=== PATIENT | female | born 1960 | race Caucasian/White ===

== ENCOUNTER → 2017-03-17 15:04 | Outpatient (CLI) | payer MEDICARE, SELFPAY ==
[2017-03-19 18:29] LABS: CA 19-9 10 U/mL (0-35)
== END ==
PROVIDERS: PCP Family Medicine; Visit Provider Nurse Practitioner Acute Care
DX: K86.1 Other chronic pancreatitis (principal)
CPT/HCPCS: 36415; 86316

== ENCOUNTER 2017-03-27 13:24 | Day surgery (SDC) | payer MEDICARE, SELFPAY ==
[2017-03-22 17:21] VITALS: BMI 15.0
[2017-03-27] VITALS (8 sets, daily range): BP systolic 97–160; BP diastolic 61–101; PULSE 90–109; RESP 18–24; TEMP 36.4–36.6; O2SAT 94–98
--- NOTE | 2017-03-27 | FL_ITS ---
FL ERCP CLINICAL INDICATION: ITS.REASON: ABD PAIN ORDERING PHYSICIAN: Suleman Mendez MD PATIENT AGE: 56 years PROCEDURE was performed by Dr. Mendez. Please see his report for fluoroscopic findings. Fluoroscopy time was 26 seconds. According to technologist notes, a balloon was used for dilatation and sphincterotomy performed. COMPARISON: None FINDINGS: Selective images are submitted showing dilated common bile duct. There does appear to be some intravasation of contrast into the liver versus small biliary radicles with some pulling of contrast in the left hepatic lobe. There may also be some extravasation of contrast. It is difficult to determine based on the selected images submitted. There is diffuse eating of a small pancreatic duct consistent with chronic pancreatitis. IMPRESSION: Dilated common bile duct.. There is some intravasation of contrast within the liver and suspected extravasation of contrast in the right upper quadrant. Please correlate with fluoroscopic findings. Chronic pancreatitis
[2017-03-27 14:54] LABS: POC Glucose,Bedside 129 mg/dL
--- NOTE | 2017-03-27 15:56 | HMH.PROC ---
[facility] Procedure Note Procedure Note:: ERCP procedure Report: Endoscopic retrograde cholangiopancreatography with biliary sphincterotomy and balloon extraction Endoscopist: Suleman Mendez II, MD Referring Physician: Jean Claude Cotton MD Date of Procedure: March 27, 2017 Equipment: Olympus 180 side viewing endoscope/duodenal scope Sedation: MAC sedation Indication: Mrs. Wilhelm is a 56-year-old female with chronic pancreatitis. The patient does have diffuse abdominal pain. Her CT scan of the abdomen and pelvis from October 2016 showed some changes of cirrhosis of the liver. There were extensive calcifications within the pancreas strongly indicative of chronic pancreatitis. The patient does still continue smoking tobacco but less so than previously. The patient reported use of alcohol. There is no known family history of pancreatitis. The patient does have a history of peptic ulcer disease. Her abdominal pain had initially improved with pancreatic digestive supplementation. The patient does have an elevated alkaline phosphatase. Her CA-19-9 level was normal at 10. There was no biliary ductal dilation on her CAT scan. Procedure: Prior to the procedure, a history and physical exam was performed, and patient's medications and allergies were reviewed. The risks, benefits and alternatives of the sedation and procedure were discussed with the patient. All questions were answered and informed consent was obtained. The patient was brought to the fluoroscopic radiology room. Patient identification and proposed procedure were verified by the physician and the nurse. The patient was placed in a swimmer's position between left lateral decubitus and prone position and the scope was passed under direct vision. Throughout the procedure, the patient's blood pressure, pulse, and oxygen saturations were monitored continuously. The ERCP was accomplished without difficulty. The patient tolerated the procedure well. Findings: The endoscope was passed directly into the upper esophagus and advanced to the second portion of the duodenum. The esophagus and stomach were grossly normal except for some mild gastritis. There was some deformity of the duodenal bulb suggestive of prior duodenal ulcer disease. The ampulla was well visualized. The common bile duct was selectively cannulated initially. The cholangiogram did show a possible filling defect within the common bile duct and common hepatic duct. It was free filling of the cystic duct and gallbladder with no evidence of chronic cholecystitis. There was some minor narrowing at the ampulla possibly related chronic pancreatitis and a biliary sphincterotomy was performed. A 9-12 mm balloon was pulled through the biliary system from the hilum with the passage of reyes bile and a minor amount of debris. Next, the pancreatic duct was cannulated the pancreatogram showed diffuse stricturing with deformity of the pancreatic duct and concretion/calcifications which would not allow easy guidewire access or stent placement. The findings were consistent with moderate chronic pancreatitis. Impression: 1. Moderate chronic pancreatitis 2. Early biliary stricture from chronic pancreatitis status post biliary sphincterotomy and balloon sweep/dilatation 3. Mild duodenal bulb deformity from prior peptic ulcer/duodenal ulcer disease Plan: I would like to complement ERCP with endoscopic ultrasound to assess degree of chronic pancreatitis and to ensure that there are not any areas of dilation not easily seen on ERCP. I would also consider doing MRCP. Given the fact that the patient does have moderate hepatic fibrosis and possible cirrhosis, I will obtain fibrotic markers and serologies to exclude autoimmune pancreatic/biliary disease, alpha-1 antitrypsin deficiency or other inherited forms of chronic pancreatitis. I would certainly recommend smoking cessation which has a great impact on worsening of chronic pancreatitis an
--- NOTE | 2017-03-27 16:08 | P.PN_ITS ---
[facility] Anesthesia Checklist - Patient Identification Patient Identification: Arm Band - Structural Data Admitted From: Home Planned Operative Procedure/s: ercp Consent for Planned Operative Procedure(s) Verified: Yes Verified Documents: Surgical Consent, History and Physical - NPO Status Verified Time NPO: 00:00 - Additional verifications Anesthesia Reactions: No - Airway Assessment C-Spine Mobility Assessed: Yes (mp1) TMJ Mobility Assessed: Yes Dentition: Good Dentition - Neurological Assessment Level of Consciousness: Awake, Alert - Anesthesia Plan Anesthesia Risk discussed: Yes Anesthesia Plan: Verified ASA Class: III Anesthesia Type: MAC [facility] Anesthesia HX I have reviewed the patient's past medical history: Yes Medical History: Reports:: Arrhythmia (TACHYCARDIA), Diabetes Mellitus Type 2 ( IDDM), Hypertension, Lung Disease (EMPHYSEMA), Myocardial Infarction, Palpitations, Seizures Denies:: Diabetes Mellitus Type 1, Internal Pacemaker Other Surgeries: Yes: Hernia Repair, Hysterectomy-Total. No: Pacemaker Comment: btl, back sx, breast aug
--- NOTE | 2017-03-27 16:11 | P.PCN_ITS ---
[facility] Procedure Note Procedure Note:: ERCP procedure Report: Endoscopic retrograde cholangiopancreatography with biliary sphincterotomy and balloon extraction Endoscopist: Suleman Mendez II, MD Referring Physician: Jean Claude Cotton MD Date of Procedure: March 27, 2017 Equipment: Olympus 180 side viewing endoscope/duodenal scope Sedation: MAC sedation Indication: Mrs. Wilhelm is a 56-year-old female with chronic pancreatitis. The patient does have diffuse abdominal pain. Her CT scan of the abdomen and pelvis from October 2016 showed some changes of cirrhosis of the liver. There were extensive calcifications within the pancreas strongly indicative of chronic pancreatitis. The patient does still continue smoking tobacco but less so than previously. The patient reported use of alcohol. There is no known family history of pancreatitis. The patient does have a history of peptic ulcer disease. Her abdominal pain had initially improved with pancreatic digestive supplementation. The patient does have an elevated alkaline phosphatase. Her CA-19-9 level was normal at 10. There was no biliary ductal dilation on her CAT scan. Procedure: Prior to the procedure, a history and physical exam was performed, and patient' s medications and allergies were reviewed. The risks, benefits and alternatives of the sedation and procedure were discussed with the patient. All questions were answered and informed consent was obtained. The patient was brought to the fluoroscopic radiology room. Patient identification and proposed procedure were verified by the physician and the nurse. The patient was placed in a swimmer's position between left lateral decubitus and prone position and the scope was passed under direct vision. Throughout the procedure , the patient's blood pressure, pulse, and oxygen saturations were monitored continuously. The ERCP was accomplished without difficulty. The patient tolerated the procedure well. Findings: The endoscope was passed directly into the upper esophagus and advanced to the second portion of the duodenum. The esophagus and stomach were grossly normal except for some mild gastritis. There was some deformity of the duodenal bulb suggestive of prior duodenal ulcer disease. The ampulla was well visualized. The common bile duct was selectively cannulated initially. The cholangiogram did show a possible filling defect within the common bile duct and common hepatic duct. It was free filling of the cystic duct and gallbladder with no evidence of chronic cholecystitis. There was some minor narrowing at the ampulla possibly related chronic pancreatitis and a biliary sphincterotomy was performed. A 9-12 mm balloon was pulled through the biliary system from the hilum with the passage of reyes bile and a minor amount of debris. Next, the pancreatic duct was cannulated the pancreatogram showed diffuse stricturing with deformity of the pancreatic duct and concretion/ calcifications which would not allow easy guidewire access or stent placement. The findings were consistent with moderate chronic pancreatitis. Impression: 1. Moderate chronic pancreatitis 2. Early biliary stricture from chronic pancreatitis status post biliary sphincterotomy and balloon sweep/dilatation 3. Mild duodenal bulb deformity from prior peptic ulcer/duodenal ulcer disease Plan: I would like to complement ERCP with endoscopic ultrasound to assess degree of chronic pancreatitis and to ensure that there are not any areas of dilation not easily seen on ERCP. I would also consider doing MRCP. Given the fact that the patient does have moderate hepatic fibrosis and possible cirrhosis, I will obtain fibrotic markers a
[2017-03-29 08:27] LABS: Alpha-1-Antitrypsin 144 mg/dL (90-200); Hep A Ab, IgM Negative (Negative); Hep B Core Ab, Total Negative (Negative); Hepatitis B Core Antibody IgM Negative (Negative); Hepatitis B Surface Antigen Negative (Negative); Immunoglobulin A, Qn 272 mg/dL (87-352); Immunoglobulin M, Qn 208 mg/dL (26-217)
[2017-03-29 12:16] LABS: Anti-Jo-1 <0.2 AI (0.0-0.9); Anti-Smith Antibody <0.2 AI (0.0-0.9); Antichromatin Antibodies <0.2 AI (0.0-0.9); Antiscleroderma-70 Antibodies <0.2 AI (0.0-0.9); RNP Antibodies <0.2 AI (0.0-0.9); Sjogren's Anti-SS-A <0.2 AI (0.0-0.9); Sjogren's Anti-SS-B 1.4 AI (0.0-0.9)
[2017-03-30 06:15] LABS: IgG, Subclass 1 415 mg/dL (248-810); IgG, Subclass 2 267 mg/dL (130-555); IgG, Subclass 3 59 mg/dL (15-102); Immunoglobulin G, Qn 821 mg/dL (700-1600)
[2017-03-30 12:32] LABS: Actin (Smooth Muscle) Antibody 5 Units (0-19); Angiotensin Converting Enzyme 9 U/L (14-82); Anti-Centromere B Antibodies <0.2 AI (0.0-0.9); Anti-DNA (DS) Ab Qn <1 IU/mL (0-9); Hep A Ab, Total Negative (Negative); Hep B Surface Ab, Qual Non Reactive (.); Hepatitis C Antibody 0.1 s/co ratio (0.0-0.9)
[2017-03-30 12:34] LABS: IgG, Subclass 4 49 mg/dL (2-96)
== END 2017-03-27 17:31 | disposition home or self-care (01) ==
LOC: OUTP 13:30
PROVIDERS: PCP Family Medicine; Visit Provider Internal Medicine Gastroenterology
DX: K86.1 Other chronic pancreatitis (principal); K31.89 Other diseases of stomach and duodenum; K80.50 Calculus of bile duct without cholangitis or cholecystitis without obstruction
CPT/HCPCS: 43277; 74330; 80074; 82104; 82164; 82784; 82787; 82962; 86038; 86255; 86704; 86706; 86708; Q9967

== ENCOUNTER → 2017-03-31 14:42 | Outpatient (CLI) | payer MEDICARE, SELFPAY ==
[2017-04-05 06:20] LABS: ALT (SGPT) P5P 23 IU/L (0-40); Alpha 2-Macroglobulins, Qn 328 mg/dL (110-276); Apolipoprotein A-1 168 mg/dL (116-209); Fibrosis Score 0.84 (0.00-0.21); GGT 819 IU/L (0-60); Haptoglobin 176 mg/dL (34-200); Necroinflammat Activity Grade A0-A1 (.)
== END ==
PROVIDERS: PCP Family Medicine; Visit Provider Internal Medicine Gastroenterology
DX: K74.60 Unspecified cirrhosis of liver (principal)
CPT/HCPCS: 36415

== ENCOUNTER → 2017-11-01 13:54 | Outpatient (CLI) | payer MEDICARE, SELFPAY ==
--- NOTE | 2017-11-01 13:57 | XR_ITS ---
XR chest 2V HISTORY: ITS.REASON: BRONCHITIS, smoker ORDERING PHYSICIAN: YAN Garvey PATIENT AGE: 57 years COMPARISON: 10/31/2016 FINDINGS: Unremarkable cardiovascular structures. Hyperinflation with attenuation of peripheral pulmonary vessels consistent with obstructive chronic bronchitis. There is either infiltration of the hemidiaphragms. There is attenuation from overlying breast implants. No lobar consolidation or collapse. No acute bony anomalies. Mild degenerative changes thoracic spine. IMPRESSION: COPD, no change with no acute finding
== END ==
PROVIDERS: PCP Family Medicine; Visit Provider Physician Assistant
DX: J40 Bronchitis, not specified as acute or chronic (principal)
CPT/HCPCS: 71046

== ENCOUNTER → 2017-11-27 15:08 | Outpatient (CLI) | payer MEDICARE, SELFPAY ==
--- NOTE | 2017-11-27 15:10 | CT_ITS ---
CT lung screening EXAM: CT LUNG LOW DOSE WO CONTRAST HISTORY: 94 pack-year smoking history, currently smoking, asymptomatic for lung cancer ITS.REASON: CURRENT TOBACCO USE ORDERING PHYSICIAN: Tamela Wilde MD PATIENT AGE: 57 years COMPARISON: 10/18/2009 TECHNIQUE: The exam was performed on a GE Light Speed [address] scanner using 2.90 mGy CTDI. A low dose helical CT CHEST was performed on a multi-detector scanner. All CT scans at the facility use one or more dose reduction, viz: automated exposure control, ma/kV adjustment per patient size (including targeted exams where dose is matched to indication, i.e. head), or iterative reconstruction technique. The LDCT was performed in a facility that meets the criteria for the screening program. Data regarding this exam was submitted to ACR which is an approved registry. The order for this exam indicates that it came as a result of a lung cancer screening counseling shard decision-making visit that included all the elements required of such a visit including smoking cessation. The radiologist interpreting this exam meets the CMS criteria for the LDCT lung cancer screening program. The exam is reported using the Lung-RADS classification scale and reported to the ACR registry. NOTE: This study was performed for the specific purposes of lung cancer screening and is not an alternative to diagnostic chest CT. RADIATION DOSE: CTDI vol(CT dose Index-volume) = 2.90mG DLP (Dose Length Product) = 113.85 mGcm FINDINGS: There are severe centrilobular emphysematous changes with scattered areas of pulmonary fibrosis/scarring. There is Bronchial thickening. There is evidence of old granulomatous disease. Calcified granulomas are present within the right lower lobe, lingula and left lower lobe with calcified lymph nodes present in the julienne and mediastinum. There are no central obstructing lesions. Incidental note made of coronary artery calcification Upper abdominal images show a isodensity in the right hepatic lobe at the dome of the liver at 5 mm nonspecific. There are diffuse pancreatic calcifications consistent with chronic pancreatitis IMPRESSION: 1. Lung RADS Category: 2, benign 2. Other findings: Centrilobular emphysema with scattered areas of fibrosis. Old granulomatous disease Coronary artery calcification. Chronic pancreatitis RECOMMENDATIONS: 12 month LDCT follow-up
--- NOTE | 2017-11-27 15:11 | MM_ITS ---
MM Dig SC mamm implant BI CAD ORDERING PHYSICIAN : Tamela Wilde MD PATIENT AGE: 57 years GENDER: Female COMPARISON: December 2012, March 2011, November 2009 INDICATION: ITS.REASON: SCREENING no new complaints. Bilateral breast implants. Patient states she does taking female hormones Noncontributory family history .: TECHNIQUE: Dayo technique utilized. CC & MLO images were obtained of the breast tissue overlying implant, as well as a second set of images including the breast implant. Mammography is inherently limited due to the implants is a could obscure areas of breast R2 CAD reviewed. . FINDINGS: Suggestion of overall decreased volume of breast tissue overlying the implants bilaterally. This may reflects interval weight loss as well as I believe there are differences in positioning/technique compared to 2011 RIGHT BREAST:No significant new findings at the right breast. A few additional benign focal dense calcified noted . Follow-up right mammogram in one year LEFT BREAST: Cc view best demonstrates a 8.5 mm x 8 mm nodular density at the lateral left breast. I believe this is most likely a long-standing nodule is been was seen on mammogram studies from 2011 and 2009.. Also note stable tiny area of calcification at its lateral margin noted on cc view. I this appears to reside superiorly on the MLO view 1:30 o'clock position. Thus overall of believe this is a stable nodule but would suggest the patient return for ultrasound and spot views of this area for baseline workup and provide reference point.. Suggest small spot CC, 90 degrees MLO view. We will likely merely follow this area in this patient with implants IMPRESSION......... 1. Left breast 8.5 x 5 mm nodule at 1:30 o'clock position which appears stable since studies dating back to 2009.. However suggest ultrasound & spot views to further evaluate this area to provide a baseline reference point/size-particularly helpful via ultrasound. 2. Right breast appears stable follow-up in one year 3. Suspect patient had interval weight loss since .There seems to be less breast tissue overlying implants bilaterally compared back to previous studies 4.Mammography is inherently limited due to the implants is a could obscure areas of breast R2 CAD reviewed. . . BI-RADS Category: 0 Need Additional Imaging Evaluation RECOMMENDED FOLLOW-UP: IMM - IMMEDIATE FOLLOW-UP RECOMMENDED Ultrasound & small spot views left breast nodule (A letter has been sent to the patient regarding results of the study.)
== END ==
PROVIDERS: PCP Family Medicine; Visit Provider Emergency Medicine
DX: Z12.2 Encounter for screening for malignant neoplasm of respiratory organs (principal); Z87.891 Personal history of nicotine dependence; Z12.31 Encounter for screening mammogram for malignant neoplasm of breast
CPT/HCPCS: 77067

== ENCOUNTER 2017-12-14 14:02 | Observation (INO) ==
--- NOTE | 2017-12-14 15:12 | History & Physical Report ---
*Admission Date: 12/14/17 <Cinthya Medina 12/14/17 15:31> *Chief complaint: abdominal pain, nausea, vomiting <Cinthya Medina 12/14/17 15:31> *History of present illness: Ms. Wilhelm is a 57yo female with a hx of alcohol induced chronic pancreatitis with a pancreatic pseudocyst, IDDM, and HTN. She has also had an incarcerated hernia with surgical repair. She has had numerous hospitalizations over the years for pancreatitis. She states she had been doing well up until approx 4 days ago when she began having epigastric abdominal pain, nausea, and vomiting. She has been unable to eat or drink very much for the past 4 days. Of note she has also been out of her clonazepam and oxycodone because she is trying to wean herself off of the medications and just never got them refilled. She has also been out of her insulin. She was seen in the office of [facility] and was dehydrated with an elevated WBC. She will be admitted for IV abx, IVF's, labs and hopefully a CT of the abdomen and pelvis with contrast tomorrow if renal function is normal. <Cinthya Medina 12/14/17 15:31> [facility] History Medical History: Reports:: Arrhythmia (TACHYCARDIA), Chronic Obstructive Pulmonary Disease (COPD), Diabetes Mellitus Type 2, Hypertension, Lung Disease (COPD), Myocardial Infarction, Palpitations, Seizures Denies:: Diabetes Mellitus Type 1, Internal Pacemaker <Cinthya Medina 12/14/17 15:31> Other Medical History: Reports: Anemia <Cinthya Medina 12/14/17 15:31> Other Surgeries: Yes: Colon Resection, Hernia Repair, Hysterectomy-Total, Plastic Surgery, Other. No: Pacemaker <Cinthya Medina 12/14/17 15:31> - *Social History Educational Level: Completed High School <Cinthya Medina 12/14/17 15:31> Smoking Status: Current every day smoker <Cinthya Medina 12/14/17 15:31> Alcohol Intake: never <Cinthya Medina 12/14/17 15:31> Occupational Status: disabled <Cinthya Medina 12/14/17 15:31> Housing: house <Cinthya Medina 12/14/17 15:31> - Psychiatric History Expresses thoughts of harming self/others: None <Cinthya Medina 12/14/17 15:31> Suicide Plan Description: No Plan <Cinthya Medina 12/14/17 15:31> *Family Hx:: Cancer <Cinthya Medina 12/14/17 15:31> Review of Systems - Constitutional Reports body ache(s), Reports chills, Reports fatigue, Reports weakness, Denies fever(s) <Cinthya Medina 12/14/17 15:31> - Eyes Denies blurry vision, Denies double vision <Cinthya Medina 12/14/17 15:31> - ENT Reports nasal congestion, Denies sore throat <Cinthya Medina 12/14/17 15:31> - *Cardiovascular Reports shortness of breath with activity, Denies chest pain <Cinthya Medina 12/14/17 15:31> - *Respiratory Reports cough, Reports shortness of breath with activity <Cinthya Medina 12/14/17 15:31> - *Gastrointestinal Reports abdominal pain, Reports nausea, Reports vomiting, Denies loose stools <Cinthya Medina 12/14/17 15:31> - *Genitourinary Denies difficulty urinating, Denies painful urination <Cinthya Medina 12/14/17 15:31> - *Musculoskeletal Reports joint pain (back), Reports muscle cramps, Reports muscle weakness <Cinthya Medina 12/14/17 15:31> - *Neurologic Reports headache(s), Reports dizziness, Reports weakness <Cinthya Medina 12/14/17 15:31> Meds Home Medications Medication Instructions Recorded Confirmed Type Albuterol Sulfate [Albuterol 2 puff IH QIDP PRN 03/27/17 12/15/17 History 0.042% 1.25mg/3mL neb] Aspirin [Aspir 81] 81 mg PO DAILY 03/27/17 12/14/17 History Budesonide/Formoterol Fumarate 2 puff IH DAILY 03/27/17 12/15/17 History [Symbicort 160-4.5 Mcg Inhaler] Estradiol 0.5 mg PO DAILY 03/27/17 12/14/17 History Insulin Glargine,Hum.rec.anlog 15 unit SQ HS 03/27/17 12/14/17 History [Lantus Insulin 100units/mL 10mL vial] Lipase/Protease/Amylase [Rossy Yung 2 each PO TIDWM 03/27/17 12/15/17 History 36,000 Units Capsule] Lisinopril [Lisinopril 40mg Tablet] 20 mg PO BID 03/27/17 12/14/17 History Multivitamin [Multivitamins] 1 each PO DAILY 03/27/17 12/14/17 History Omeprazole [Omeprazole 40mg 40 mg PO DAILY 03/27/17 12/14/17 History Capsule] Polyethylene Glycol 3350 [Miralax 17 gm PO DAILY 03/27/17 12/14/17 History Powder] dilTIAZem HCl [Cartia Xt] 240 mg PO DAILY 03/27/17 12/14/17 History Apixaban [Eliquis] 2.5 mg PO BID 12/15/17 12/15/17 History Tiotropium [place] [Spiriva 1 puff IH DAILY 12/15/17 12/15/17 History 18mcg/puff inhaler] <Han Connell - 12/15/17 13:14> Allergies Allergy/AdvReac Type Severity Reaction Status Date / Time cinnamon Allergy Severe TONGUE Verified 03/22/17 17:20 SWELL, NAUSEA acetaminophen AdvReac Unknown LIVER ISSUE Verified 03/22/17 17:20 <Han Connell - 12/15/17 13:14> Exam Vital signs and Labs for Last 24 Hours: Temp Pulse Resp BP Pulse Ox 97.9 F 92 H 18 142/99 H 95 12/15/17 08:00 12/15/17 10:25 12/15/17 08:00 12/15/17 08:00 12/15/17 10:25 Laboratory Results - last 24 hr 12/14/17 14:40: WBC 12.5 H, RBC 4.84, Hgb 14.8, Hct 46.5, MCV 96.0, MCH 30.7, MCHC 31.9, RDW 13.4, Plt Count 265, MPV 8.7, Neut % (Auto) 75.1, Lymph % (Auto) 16.7, [place] % (Auto) 7.3, Eos % (Auto) 0.6, Baso % (Auto) 0.3, Neut # (Auto) 9.4 H, Lymph # (Auto) 2.1, [place] # (Auto) 0.9, Eos # (Auto) 0.1, Baso # (Auto) 0.0 12/14/17 16:00: Sodium 136, Potassium 4.0, Chloride 99, Carbon Dioxide 31, Anion Gap 10.0, BUN 8, Creatinine 0.67, Estimated Creat Clear 54, Estimated GFR 91, Est GFR ( Amer) 110, Glucose 178 H, Calcium 8.5, Total Bilirubin 0.8, AST 31, ALT 29, Alkaline Phosphatase 228 H, Total Protein 6.0 L, Albumin 3.2 L, Globulin 2.8, Albumin/Globulin Ratio 1.1, Amylase 10 L 12/14/17 16:00: Lipase 44 L 12/14/17 16:41: POC Glucose 147 H 12/14/17 20:22: POC Glucose 233 H 12/14/17 21:31: Stl Aeromonas (PCR) Not detected, Stl C. cayetanensis PCR Not detected, Stool Rotavirus (PCR) Not detected, Stl Adenov F 40/41 PCR Not detected, Stool Astrovirus (PCR) Not detected, Stool Campylobacter PCR Not detected, Stl C.difficile Tox PCR Not detected, Stool Cryptosporidium PCR Not detected, Stl E.coli Shiga Tox PCR Not detected, Stool E coli O157 PCR Not detected, Stl Enterotoxigenic E PCR Not detected, Stool EPEC (PCR) Not detected, Stool EAEC (PCR) Not detected, Stl E. histolytica PCR Not detected, Stool Giardia Lamblia PCR Not detected, Stool Salmonella PCR Not detected, Stool Sapovirus (PCR) Not detected, Stl P. shigelloides PCR Not detected, Stl Shigella/EIEC PCR Not detected, St Y.enterocolitica PCR Not detected, Stool Vibrio (PCR) Not detected, Stl Vibrio cholerae PCR Not detected, Stl Norovirus GI/GII PCR Not detected 12/15/17 05:50: POC Glucose 99 12/15/17 12:12: POC Glucose 127 H <Han Connell - 12/15/17 13:14> I & O for Last 24 hours: Intake & Output 1012/14/17 12/15/17 12/16/17 11:59 11:59 11:59 11:59 Intake Total 1743 / 1743 Output Total 400 / 400 Balance 1343 / 1343 Weight 82 lb 6 oz 82 lb 6.012 oz <Han Connell - 12/15/17 13:14> Microbiology Reports for the Last 24 Hours: Microbiology 12/15/17 11:00 Sputum - Expectorated Sputum Gram Stain - Final <Han Connell - 12/15/17 13:14> - Constitutional Comments: Does not appear to feel well, shaking <Cinthya Medina - 12/14/17 15:31> - *Routine HEENT Exam Head: Present: normocephalic <AdamCinthya - 12/14/17 15:31> Eye: Present: EOMI, PERRL <DwaynerishiCinthya 12/14/17 15:31> ENT: Present: mucous membranes moist, mucous membranes dry <AdamCinthya 12/14/17 15:31> - *Routine Neck Exam Present: supple. Absent: lymphadenopathy <Cinthya Medina - 12/14/17 15:31> - *Routine Respiratory Exam Present: decreased breath sounds, rhonchi (scattered) <AdamCinthya - 12/14/17 15:31> - *Routine Cardiovascular Exam Present: tachycardia <DwaynerishiCinthya - 12/14/17 15:31> - *Routine Abdominal Exam Present: soft, normoactive bowel sounds, tenderness (epigastric area), guarding <AdamCinthya - 12/14/17 15:31> - *Routine Extremities Exam Absent: cyanosis, clubbing, edema <Cinthya Medina - 12/14/17 15:31> - *Routine Skin Exam Present: pallor <AdamCinthya 12/14/17 15:31> - *Routine Neurological Exam Present: alert, oriented X3 <AdamCinthya 12/14/17 15:31> Assessment and Plan (1) Dehydration Current visit: Yes Status: Acute Category: Medical Code(s): E86.0 - Dehydration (2) Epigastric abdominal pain Current visit: Yes Status: Acute Category: Medical Code(s): R10.13 - Epigastric pain (3) Leukocytosis Current visit: Yes Status: Acute Category: Medical Code(s): D72.829 - Elevated white blood cell count, unspecified (4) Pancreatic pseudocyst Current visit: Yes Status: Chronic Category: Medical Code(s): K86.3 - Pseudocyst of pancreas (5) Chronic alcoholic pancreatitis Current visit: Yes Status: Chronic Category: Medical Code(s): K86.0 - Alcohol-induced chronic pancreatitis (6) IDDM (insulin dependent diabetes mellitus) Current visit: Yes Status: Chronic Category: Medical Code(s): E11.9 - Type 2 diabetes mellitus without complications; Z79.4 - exterminator termite (current) use of insulin (7) Hypertension Current visit: Yes Status: Chronic Category: Medical Code(s): I10 - Essential (primary) hypertension <Cinthya Medina - 12/14/17 15:07> (1) Intractable vomiting Current visit: Yes Status: Acute Category: Medical Code(s): R11.10 - Vomiting, unspecified (2) Dehydration Current visit: Yes Status: Acute Category: Medical Code(s): E86.0 - Dehydration (3) Epigastric abdominal pain Current visit: Yes Status: Acute Category: Medical Code(s): R10.13 - Epigastric pain (4) Leukocytosis Current visit: Yes Status: Acute Category: Medical Code(s): D72.829 - Elevated white blood cell count, unspecified (5) Pancreatic pseudocyst Current visit: Yes Status: Chronic Category: Medical Code(s): K86.3 - Pseudocyst of pancreas (6) Chronic alcoholic pancreatitis Current visit: Yes Status: Chronic Category: Medical Code(s): K86.0 - Alcohol-induced chronic pancreatitis (7) IDDM (insulin dependent diabetes mellitus) Current visit: Yes Status: Chronic Category: Medical Code(s): E11.9 - Type 2 diabetes mellitus without complications; Z79.4 - exterminator termite (current) use of insulin (8) Hypertension Current visit: Yes Status: Chronic Category: Medical Code(s): I10 - Essential (primary) hypertension <Han Connell - 12/15/17 13:14> - Assessment and plan all Dx Assessment and Plan for all problems:: Patient seen and examined on admission. She is uncomfortable with abdominal pain which is diffuse but most prominent in LUQ. Admission labs are pending. She is being treated with GI rest IV fluids, antiemetics, and empiric Invanz. Some symptoms may be related to withdrawal from opiods but she is now 6 days post her last dose. <Han Connell - 12/15/17 13:14> Patient will be admitted and started on IVF's, antiemetics, and Invanz. Will get labs today and likely a CT of the abdomen tomorrow with contrast if renal function is normal. <Cinthya eMdina - 12/14/17 15:31>
[2017-12-14 15:17] LABS: Basophils % 0.3 % (0.1-2.0); Eosinophils # 0.1 K/mm3 (0.0-0.4); Eosinophils % 0.6 % (0.1-12.0); Hematocrit 46.5 % (37.0-47.0); Hemoglobin 14.8 g/dL (12.2-16.2); Lymphocytes # 2.1 K/mm3 (0.7-4.5); Lymphocytes % 16.7 K/mm3 (10-50); Mean Corpuscular HGB Conc 31.9 g/dL (31.8-35.4); Mean Corpuscular Hemoglobin 30.7 pg (27.0-31.2); Mean Platelet Volume 8.7 fl (7.4-10.4); Monocytes # 0.9 K/mm3 (0.1-1.0); Monocytes % 7.3 % (1.7-9.3); Neutrophils # 9.4 K/mm3 (1.8-7.8); Neutrophils % 75.1 % (37.0-80.0); Platelet Count 265 K/mm3 (142-424); Red Blood Count 4.84 M/mm3 (4.20-5.40); Red Cell Distribution Width 13.4 % (11.5-17.5); White Blood Count 12.5 K/mm3 (4.8-10.8)
[2017-12-14 16:22] LABS: Albumin Level 3.2 gm/dL (3.4-5.0); Albumin/Globulin Ratio 1.1 (1.1-1.8); Bilirubin,Total 0.8 mg/dL (0.2-1.0); Calcium 8.5 mg/dL (8.5-10.1); Globulin 2.8 gm/dl (1.3-3.2)
--- NOTE | 2017-12-15 07:29 | Pharmacy Consult Notes ---
[facility] Pharmacy VTE Monitoring - Patient Demographics Admission date: 12/14/17 Report Date: 12/15/17 Time: 07:29 Allergies/Adverse Reactions: Patient Allergies cinnamon Allergy (Severe, Verified 03/22/17 17:20) TONGUE SWELL, NAUSEA acetaminophen Adverse Reaction (Unknown, Verified 03/22/17 17:20) LIVER ISSUE Height: 1.6 m Weight: 37.365 kg Patient Problems: Current Active Problems Epigastric abdominal pain (Acute) Pancreatic pseudocyst (Chronic) Chronic alcoholic pancreatitis (Chronic) Leukocytosis (Acute) Dehydration (Acute) IDDM (insulin dependent diabetes mellitus) (Chronic) Hypertension (Chronic) - VTE Risk Labs: VTE Related Lab Results Hgb 14.8 g/dL (12.2-16.2) 12/14/17 14:40 Hct 46.5 % (37.0-47.0) 12/14/17 14:40 Plt Count 265 K/mm3 (142-424) 12/14/17 14:40 BUN 8 mg/dL (7-18) 12/14/17 16:00 Creatinine 0.67 mg/dL (0.55-1.02) 12/14/17 16:00 Estimated Creat Clear 54 mL/min (0-300) 12/14/17 16:00 Was VTE Risk Assessment Performed: Yes VTE Score: 2 VTE Risk Level: Very Low Risk Clinical Trial Participant: No - Prophylaxis VTE Prophylaxis Ordered?: Yes Types of VTE Prophylaxis: TEDS Knee High
--- NOTE | 2017-12-15 08:28 | Progress Note ---
<Cinthya Medina - Last Filed: 12/15/17 08:24> Internal Medicine - PN: Subj *Date: 12/15/17 *Time: 08:24 Interval history: Patient is feeling slightly better this morning. She is able to keep down clear liquids and would like to try to advance her diet. She has had no further vomiting and her nausea has improved. She is still having significant abdominal pain. She is also coughing and has some wheezing. She normally takes albuterol nebulizer treatments at home. Exam Vital signs and Labs for Last 24 Hours: Temp Pulse Resp BP Pulse Ox 97.9 F 114 H 18 142/99 H 98 12/15/17 08:00 12/15/17 08:00 12/15/17 08:00 12/15/17 08:00 12/15/17 08:00 Laboratory Results - last 24 hr 12/14/17 14:40: WBC 12.5 H, RBC 4.84, Hgb 14.8, Hct 46.5, MCV 96.0, MCH 30.7, MCHC 31.9, RDW 13.4, Plt Count 265, MPV 8.7, Neut % (Auto) 75.1, Lymph % (Auto) 16.7, [place] % (Auto) 7.3, Eos % (Auto) 0.6, Baso % (Auto) 0.3, Neut # (Auto) 9.4 H, Lymph # (Auto) 2.1, [place] # (Auto) 0.9, Eos # (Auto) 0.1, Baso # (Auto) 0.0 12/14/17 16:00: Sodium 136, Potassium 4.0, Chloride 99, Carbon Dioxide 31, Anion Gap 10.0, BUN 8, Creatinine 0.67, Estimated Creat Clear 54, Estimated GFR 91, Est GFR ( Amer) 110, Glucose 178 H, Calcium 8.5, Total Bilirubin 0.8, AST 31, ALT 29, Alkaline Phosphatase 228 H, Total Protein 6.0 L, Albumin 3.2 L, Globulin 2.8, Albumin/Globulin Ratio 1.1, Amylase 10 L 12/14/17 16:00: Lipase 44 L 12/14/17 16:41: POC Glucose 147 H 12/14/17 20:22: POC Glucose 233 H 12/14/17 21:31: Stl Aeromonas (PCR) Not detected, Stl C. cayetanensis PCR Not detected, Stool Rotavirus (PCR) Not detected, Stl Adenov F 40/41 PCR Not detected, Stool Astrovirus (PCR) Not detected, Stool Campylobacter PCR Not detected, Stl C.difficile Tox PCR Not detected, Stool Cryptosporidium PCR Not detected, Stl E.coli Shiga Tox PCR Not detected, Stool E coli O157 PCR Not detected, Stl Enterotoxigenic E PCR Not detected, Stool EPEC (PCR) Not detected, Stool EAEC (PCR) Not detected, Stl E. histolytica PCR Not detected, Stool Giardia Lamblia PCR Not detected, Stool Salmonella PCR Not detected, Stool Sapovirus (PCR) Not detected, Stl P. shigelloides PCR Not detected, Stl Shigella/EIEC PCR Not detected, St Y.enterocolitica PCR Not detected, Stool Vibrio (PCR) Not detected, Stl Vibrio cholerae PCR Not detected, Stl Norovirus GI/GII PCR Not detected 12/15/17 05:50: POC Glucose 99 I & O for Last 24 hours: Intake & Output 12/12/17 12/13/17 12/14/17 12/15/17 11:59 11:59 11:59 11:59 Intake Total 1743 / 1743 Output Total 400 / 400 Balance 1343 / 1343 Weight 82 lb 6 oz - Constitutional no acute distress - *Routine Respiratory Exam Present: rhonchi (bilaterally). Absent: rales - *Routine Cardiovascular Exam Present: RRR - *Routine Abdominal Exam Present: soft, normoactive bowel sounds, tenderness (epigastric area with some guarding) - *Routine Extremities Exam Absent: cyanosis, clubbing, edema Assessment and Plan (1) Dehydration Current visit: Yes Status: Acute Category: Medical Code(s): E86.0 - Dehydration (2) Epigastric abdominal pain Current visit: Yes Status: Acute Category: Medical Code(s): R10.13 - Epigastric pain (3) Leukocytosis Current visit: Yes Status: Acute Category: Medical Code(s): D72.829 - Elevated white blood cell count, unspecified (4) Pancreatic pseudocyst Current visit: Yes Status: Chronic Category: Medical Code(s): K86.3 - Pseudocyst of pancreas (5) Chronic alcoholic pancreatitis Current visit: Yes Status: Chronic Category: Medical Code(s): K86.0 - Alcohol-induced chronic pancreatitis (6) IDDM (insulin dependent diabetes mellitus) Current visit: Yes Status: Chronic Category: Medical Code(s): E11.9 - Type 2 diabetes mellitus without complications; Z79.4 - [facility] (current) use of insulin (7) Hypertension Current visit: Yes Status: Chronic Category: Medical Code(s): I10 - Essential (primary) hypertension - Assessment and plan all Dx Assessment and Plan for all problems:: Diarrhea panel was normal. Patient's labs were surprisingly stable. Will start on albuterol nebs today. Patient is requesting some type of medication to help with her legs. She states they ache and she feels like she constantly has to move them. She used to take clonazepam but no longer wants to take this medication. Will discuss with Dr. Connell starting something like Requip to see if this helps. Will discuss getting a CT of the abdomen and pelvis with Dr. Connell as well. <Han Connell - Last Filed: 12/15/17 13:18> Exam Vital signs and Labs for Last 24 Hours: Temp Pulse Resp BP Pulse Ox 97.9 F 92 H 18 142/99 H 95 12/15/17 08:00 12/15/17 10:25 12/15/17 08:00 12/15/17 08:00 12/15/17 10:25 Laboratory Results - last 24 hr 12/14/17 14:40: WBC 12.5 H, RBC 4.84, Hgb 14.8, Hct 46.5, MCV 96.0, MCH 30.7, MCHC 31.9, RDW 13.4, Plt Count 265, MPV 8.7, Neut % (Auto) 75.1, Lymph % (Auto) 16.7, [place] % (Auto) 7.3, Eos % (Auto) 0.6, Baso % (Auto) 0.3, Neut # (Auto) 9.4 H, Lymph # (Auto) 2.1, [place] # (Auto) 0.9, Eos # (Auto) 0.1, Baso # (Auto) 0.0 12/14/17 16:00: Sodium 136, Potassium 4.0, Chloride 99, Carbon Dioxide 31, Anion Gap 10.0, BUN 8, Creatinine 0.67, Estimated Creat Clear 54, Estimated GFR 91, Est GFR ( Amer) 110, Glucose 178 H, Calcium 8.5, Total Bilirubin 0.8, AST 31, ALT 29, Alkaline Phosphatase 228 H, Total Protein 6.0 L, Albumin 3.2 L, Globulin 2.8, Albumin/Globulin Ratio 1.1, Amylase 10 L 12/14/17 16:00: Lipase 44 L 12/14/17 16:41: POC Glucose 147 H 12/14/17 20:22: POC Glucose 233 H 12/14/17 21:31: Stl Aeromonas (PCR) Not detected, Stl C. cayetanensis PCR Not detected, Stool Rotavirus (PCR) Not detected, Stl Adenov F 40/41 PCR Not detected, Stool Astrovirus (PCR) Not detected, Stool Campylobacter PCR Not detected, Stl C.difficile Tox PCR Not detected, Stool Cryptosporidium PCR Not detected, Stl E.coli Shiga Tox PCR Not detected, Stool E coli O157 PCR Not detected, Stl Enterotoxigenic E PCR Not detected, Stool EPEC (PCR) Not detected, Stool EAEC (PCR) Not detected, Stl E. histolytica PCR Not detected, Stool Giardia Lamblia PCR Not detected, Stool Salmonella PCR Not detected, Stool Sapovirus (PCR) Not detected, Stl P. shigelloides PCR Not detected, Stl Shigella/EIEC PCR Not detected, St Y.enterocolitica PCR Not detected, Stool Vibrio (PCR) Not detected, Stl Vibrio cholerae PCR Not detected, Stl Norovirus GI/GII PCR Not detected 12/15/17 05:50: POC Glucose 99 12/15/17 12:12: POC Glucose 127 H I & O for Last 24 hours: Intake & Output 12/13/17 12/14/17 12/15/17 12/16/17 11:59 11:59 11:59 11:59 Intake Total 1743 / 1743 Output Total 400 / 400 Balance 1343 / 1343 Weight 82 lb 6 oz 82 lb 6.012 oz Microbiology Reports for the Last 24 Hours: Microbiology 12/15/17 11:00 Sputum - Expectorated Sputum Gram Stain - Final Assessment and Plan (1) Intractable vomiting Current visit: Yes Status: Acute Category: Medical Code(s): R11.10 - Vomiting, unspecified (2) Dehydration Current visit: Yes Status: Acute Category: Medical Code(s): E86.0 - Dehydration (3) Epigastric abdominal pain Current visit: Yes Status: Acute Category: Medical Code(s): R10.13 - Epigastric pain (4) Leukocytosis Current visit: Yes Status: Acute Category: Medical Code(s): D72.829 - Elevated white blood cell count, unspecified (5) Pancreatic pseudocyst Current visit: Yes Status: Chronic Category: Medical Code(s): K86.3 - Pseudocyst of pancreas (6) Chronic alcoholic pancreatitis Current visit: Yes Status: Chronic Category: Medical Code(s): K86.0 - Alcohol-induced chronic pancreatitis (7) IDDM (insulin dependent diabetes mellitus) Current visit: Yes Status: Chronic Category: Medical Code(s): E11.9 - Type 2 diabetes mellitus without complications; Z79.4 - truck terminal manager (current) use of insulin (8) Hypertension Current visit: Yes Status: Chronic Category: Medical Code(s): I10 - Essential (primary) hypertension - Assessment and plan all Dx Assessment and Plan for all problems:: Patient seen and examined. SHe is better. Does not appear to have pancreatitis as enzymes are normal. Therefore will defer CT scanning and advance diet. SHe seems to have more of a congested cough today and increased rhonchi on chest exam. Will obtain CXR. Possibly discharge home tomorrow if tolerates diet. Will give trial of Tramadol for leg pain.
[2017-12-16 07:15] LABS: Basophils % 0.3 % (0.1-2.0); Eosinophils # 0.2 K/mm3 (0.0-0.4); Eosinophils % 3.1 % (0.1-12.0); Hematocrit 45.7 % (37.0-47.0); Hemoglobin 14.7 g/dL (12.2-16.2); Lymphocytes # 1.9 K/mm3 (0.7-4.5); Lymphocytes % 31.2 K/mm3 (10-50); Mean Corpuscular HGB Conc 32.1 g/dL (31.8-35.4); Mean Corpuscular Hemoglobin 31.1 pg (27.0-31.2); Mean Platelet Volume 7.9 fl (7.4-10.4); Monocytes # 0.5 K/mm3 (0.1-1.0); Monocytes % 7.5 % (1.7-9.3); Neutrophils # 3.5 K/mm3 (1.8-7.8); Neutrophils % 57.9 % (37.0-80.0); Platelet Count 183 K/mm3 (142-424); Red Blood Count 4.71 M/mm3 (4.20-5.40); Red Cell Distribution Width 13.3 % (11.5-17.5)
[2017-12-16 07:30] LABS: Albumin Level 2.8 gm/dL (3.4-5.0); Anion Gap 9.2 mEq/L (5-15); Bilirubin,Total 0.7 mg/dL (0.2-1.0); Calcium 8.2 mg/dL (8.5-10.1); Globulin 2.9 gm/dl (1.3-3.2); Potassium 3.2 mmoL/L (3.5-5.1); Total Protein,Serum 5.7 gm/dL (6.4-8.2)
--- NOTE | 2017-12-16 09:37 | Progress Note ---
Internal Medicine - PN: Subj *Date: 12/16/17 *Time: 10:01 Interval history: States she slept well last night and feels much better this AM. Abdominal pain has almost completely resolved. No N or V and is tolerating her diet. Stools still loose but less frequent. Amitriptyline helped her anxiety last night. Exam Vital signs and Labs for Last 24 Hours: Temp Pulse Resp BP Pulse Ox 98.6 F 97 H 18 143/94 H 94 L 12/16/17 07:48 12/16/17 07:48 12/16/17 07:48 12/16/17 07:48 12/16/17 08:00 Laboratory Results - last 24 hr 12/15/17 12:12: POC Glucose 127 H 12/15/17 16:43: POC Glucose 364 H* 12/15/17 20:32: POC Glucose 208 H 12/16/17 06:23: POC Glucose 111 H 12/16/17 06:30: WBC 6.0 D, RBC 4.71, Hgb 14.7, Hct 45.7, MCV 97.0, MCH 31.1, MCHC 32.1, RDW 13.3, Plt Count 183 D, MPV 7.9, Neut % (Auto) 57.9, Lymph % (Auto) 31.2, [place] % (Auto) 7.5, Eos % (Auto) 3.1, Baso % (Auto) 0.3, Neut # (Auto) 3.5, Lymph # (Auto) 1.9, [place] # (Auto) 0.5, Eos # (Auto) 0.2, Baso # (Auto) 0.0 12/16/17 06:30: Sodium 141, Potassium 3.2 L, Chloride 105, Carbon Dioxide 30, Anion Gap 9.2, BUN 6 L, Creatinine 0.55, Estimated Creat Clear 68, Estimated GFR 114, Est GFR ( Amer) 138 D, Glucose 110 H, Calcium 8.2 L, Total Bilirubin 0.7, AST 27, ALT 29, Alkaline Phosphatase 197 H, Total Protein 5.7 L, Albumin 2.8 L, Globulin 2.9, Albumin/Globulin Ratio 1.0 L, Amylase 14 L, Lipase 53 L I & O for Last 24 hours: Intake & Output 12/13/17 12/14/17 12/15/17 12/16/17 11:59 11:59 11:59 11:59 Intake Total 1743 / 1743 1812 / 1812 Output Total 400 / 400 600 / 600 Balance 1343 / 1343 1212 / 1212 Weight 82 lb 6 oz 84 lb 6 oz Microbiology Reports for the Last 24 Hours: Microbiology 12/15/17 11:00 Sputum - Expectorated Sputum Gram Stain - Final 12/15/17 11:00 Sputum - Expectorated Sputum Sputum Culture - Preliminary Narrative: CT scan last night raised the question of SMV thrombosis although this was not mentioned in the [facility] report. Also noted with gastritis and possible colitis. Lung bases did not show any acute infiltrates. - Constitutional no acute distress - *Routine Respiratory Exam Comments: coarse BS with few rhonchi. - *Routine Cardiovascular Exam Present: RRR - *Routine Abdominal Exam Comments: softer, nondisteded. Normal BS. dyeing machine tender in left abdomen. Assessment and Plan (1) Intractable vomiting Current visit: Yes Status: Acute Category: Medical Code(s): R11.10 - Vomiting, unspecified (2) Dehydration Current visit: Yes Status: Acute Category: Medical Code(s): E86.0 - Dehydration (3) Epigastric abdominal pain Current visit: Yes Status: Acute Category: Medical Code(s): R10.13 - Epigastric pain (4) Leukocytosis Current visit: Yes Status: Acute Category: Medical Code(s): D72.829 - Elevated white blood cell count, unspecified (5) Pancreatic pseudocyst Current visit: Yes Status: Chronic Category: Medical Code(s): K86.3 - Pseudocyst of pancreas (6) Chronic alcoholic pancreatitis Current visit: Yes Status: Chronic Category: Medical Code(s): K86.0 - Alcohol-induced chronic pancreatitis (7) IDDM (insulin dependent diabetes mellitus) Current visit: Yes Status: Chronic Category: Medical Code(s): E11.9 - Type 2 diabetes mellitus without complications; Z79.4 - group home (current) use of insulin (8) Hypertension Current visit: Yes Status: Chronic Category: Medical Code(s): I10 - Essential (primary) hypertension (9) Superior mesenteric vein thrombosis Current visit: Yes Status: Acute Category: Medical Code(s): I81 - Portal vein thrombosis (10) Acute bronchitis Current visit: Yes Status: Acute Category: Medical Code(s): J20.9 - Acute bronchitis, unspecified - Assessment and plan all Dx Assessment and Plan for all problems:: Subjectively and clinically she is much improved and insists on going home. Discussed the CT findings with the patient and the radiologist's recommendation for a f/u triphasic CT of abd/pelvis. The patient states she would prefer to do this as an outpt. I recommend anticoagulation until the possibility of SMV thrombosis can be confirmed or excluded. She has Eliquis at home which she had quit taking so this will be restarted. She will be discharged on Levaquin for acute bronchitis and possible colitis. F/u in office in 3 days.
--- NOTE | 2017-12-18 11:30 | Discharge Summary ---
General - General Admission date:: 12/14/17 Discharge date: 12/16/17 HPI HPI: Ms. Wilhelm is a 57yo female with a hx of alcohol induced chronic pancreatitis with a pancreatic pseudocyst, IDDM, and HTN. She has also had an incarcerated hernia with surgical repair. She has had numerous hospitalizations over the years for pancreatitis. She states she had been doing well up until approx 4 days ago when she began having epigastric abdominal pain, nausea, and vomiting. She has been unable to eat or drink very much for the past 4 days. Of note she has also been out of her clonazepam and oxycodone because she is trying to wean herself off of the medications and just never got them refilled. She has also been out of her insulin. She was seen in the office of A and was dehydrated with an elevated WBC. She will be admitted for IV abx, IVF's, labs and hopefully a CT of the abdomen and pelvis with contrast tomorrow if renal function is normal. Hospital Course Hospital Course: She was started on GI rest, IV fluids, antiemetics, and empiric Invanz. It was felt some symptoms may be related to withdrawal from opiods, but she was 6 days post her last dose. By the next day, she was able to keep down clear liquids and wanted to try to advance her diet. She had no further vomiting and her nausea improved. She was still having significant abdominal pain. She also had some coughing and wheezing. Nebs were started and a CXR was ordered. It showed rather severe emphysematous changes raising the possibility of alpha-1 antitrypsin deficiency syndrome, with possible minimal pneumonic infiltrate in the right lower lobe. Her diarrhea panel was normal. She was started on a trial of Tramadol for leg pain. She had a CT of the abdomen and pelvis which raised the question of SMV thrombosis although this was not mentioned in the [facility] report. Also noted was gastritis and possible colitis. The lung bases did not show any acute infiltrates. She began feeling much better and her bdominal pain almost completely resolved. She was tolerating her diet. Amitriptyline helped her anxiety. Subjectively and clinically she was much improved and insisted on going home. Dr. Connell discussed the CT findings with the patient and the radiologist's recommendation for a f/u triphasic CT of abd/pelvis. The patient stated she would prefer to do this as an outpt. Dr. Connell recommended anticoagulation until the possibility of SMV thrombosis can be confirmed or excluded. She has Eliquis at home which she had quit taking so this will be restarted. She will be discharged on Levaquin for acute bronchitis and possible colitis. F/u in office in 3 days. Objective Vital signs: Temp Pulse Resp BP Pulse Ox 98.6 F 97 H 18 143/94 H 94 L 12/16/17 07:48 12/16/17 07:48 12/16/17 07:48 12/16/17 07:48 12/16/17 08:00 Narrative: - Constitutional Comments: Does not appear to feel well, shaking - *Routine HEENT Exam Head: Present: normocephalic Eye: Present: EOMI, PERRL ENT: Present: mucous membranes moist, mucous membranes dry - *Routine Neck Exam Present: supple. Absent: lymphadenopathy - *Routine Respiratory Exam Present: decreased breath sounds, rhonchi (scattered) - *Routine Cardiovascular Exam Present: tachycardia - *Routine Abdominal Exam Present: soft, normoactive bowel sounds, tenderness (epigastric area), guarding - *Routine Extremities Exam Absent: cyanosis, clubbing, edema - *Routine Skin Exam Present: pallor - *Routine Neurological Exam Present: alert, oriented X3 Results Labs on day of discharge: Preliminary micro results at discharge 12/14/17 14:40 Blood Culture - Preliminary Blood NO GROWTH AFTER 48 HOURS 12/14/17 14:40 Blood Culture - Preliminary Blood NO GROWTH AFTER 48 HOURS DS: Diagnosis - Discharge Diagnosis (1) Intractable vomiting Status: Acute (2) Dehydration Status: Acute (3) Epigastric abdominal pain Status: Acute (4) Leukocytosis Status: Acute (5) Pancreatic pseudocyst Status: Chronic (6) Chronic alcoholic pancreatitis Status: Chronic (7) IDDM (insulin dependent diabetes mellitus) Status: Chronic (8) Hypertension Status: Chronic (9) Superior mesenteric vein thrombosis Status: Acute (10) Acute bronchitis Status: Acute Discharge Plan - Patient Discharge Instructions ACTIVITY: Continue current activity DIET: continue same diet Patient Instructions: Chronic Pancreatitis, DI for Leukocytosis - Follow up Plan Follow up with: Han Connell MD [Primary Care Provider] - 12/19/17 Disposition: Home, Self-Long-Term Medications: Home Medications Medication Instructions Recorded Confirmed Type Albuterol Sulfate [Albuterol 2 puff IH QIDP PRN 03/27/17 12/15/17 History 0.042% 1.25mg/3mL neb] Aspirin [Aspir 81] 81 mg PO DAILY 03/27/17 12/14/17 History Budesonide/Formoterol Fumarate 2 puff IH DAILY 03/27/17 12/15/17 History [Symbicort 160-4.5 Mcg Inhaler] Estradiol 0.5 mg PO DAILY 03/27/17 12/14/17 History Insulin Glargine,Hum.rec.anlog 15 unit SQ HS 03/27/17 12/14/17 History [Lantus Insulin 100units/mL 10mL vial] Lipase/Protease/Amylase [Rossy Yung 2 each PO TIDWM 03/27/17 12/15/17 History 36,000 Units Capsule] Lisinopril [Lisinopril 40mg Tablet] 20 mg PO BID 03/27/17 12/14/17 History Multivitamin [Multivitamins] 1 each PO DAILY 03/27/17 12/14/17 History Omeprazole [Omeprazole 40mg 40 mg PO DAILY 03/27/17 12/14/17 History Capsule] Polyethylene Glycol 3350 [Miralax 17 gm PO DAILY 03/27/17 12/14/17 History Powder] dilTIAZem HCl [Cartia Xt] 240 mg PO DAILY 03/27/17 12/14/17 History Tiotropium [place] [Spiriva 1 puff IH DAILY 12/15/17 12/15/17 History 18mcg/puff inhaler] Prescriptions/Medication Reconciliation: New Amitriptyline HCl [Elavil 10mg tablet] 1 - 2 tab PO TIDP PRN #30 tablet PRN Reason: Anxiety levoFLOXacin [Levaquin 500mg tab] 500 mg PO DAILY #7 tab Continue Lisinopril [Lisinopril 40mg Tablet] 20 mg PO BID Polyethylene Glycol 3350 [Miralax Powder] 17 gm PO DAILY Omeprazole [Omeprazole 40mg Capsule] 40 mg PO DAILY Multivitamin [Multivitamins] 1 each PO DAILY Lipase/Protease/Amylase [Rossy Yung 36,000 Units Capsule] 2 each PO TIDWM Insulin Glargine,Hum.rec.anlog [Lantus Insulin 100units/mL 10mL vial] 15 unit SQ HS Estradiol 0.5 mg PO DAILY dilTIAZem HCl [Cartia Xt] 240 mg PO DAILY Budesonide/Formoterol Fumarate [Symbicort 160-4.5 Mcg Inhaler] 2 puff IH DAILY Aspirin [Aspir 81] 81 mg PO DAILY Albuterol Sulfate [Albuterol 0.042% 1.25mg/3mL neb] 2 puff IH QIDP PRN PRN Reason: breathing problems Tiotropium [place] [Spiriva 18mcg/puff inhaler] 1 puff IH DAILY Changed Apixaban [Eliquis] 5 mg PO BID #0
== END 2017-12-16 11:35 | disposition home or self-care (01) ==
LOC: 2ND
PROVIDERS: ADMIT Family Medicine; ATTEND Family Medicine
CPT/HCPCS: 36415; 71020; 71046; 74170; 80053; 82150; 82962; 83690; 85025; 87040; 87070; 87205; 87507; 94640; 94761; G0378; J1335; Q9967

== ENCOUNTER → 2017-12-18 10:24 | Outpatient (CLI) | payer MEDICARE, SELFPAY ==
--- NOTE | 2017-12-18 11:03 | CT_ITS ---
CT abdomen pelvis w con INDICATION: ITS.REASON: SMA THROMBOSIS ORDERING PHYSICIAN: Han Connell MD PATIENT AGE: 57 years COMPARISON: CT abdomen 12/15/2017 . TECHNIQUE: 100 cc Isovue contrast with three-phase any thereafter. This includes early arterial phase 30 seconds, portal venous phase 60 seconds and then a additional 100 second venous phase scan a short imaging of venous structures/ SMV. No oral contrast utilized Axial images obtained with sagittal and coronal reformats. All CT scans at the facility use one or more dose reduction, viz: automated exposure control, ma/kV adjustment per patient size (including targeted exams where dose is matched to indication, i.e. head), or iterative reconstruction technique. FINDINGS: VASCULAR structures review This study was for large part performed to further evaluate the SMV.-It appears normal today. On Prior 12/15/2017 CT abdomen there appear to be intraluminal thrombus within the dilated SMV..Understand the patient showed clinical improvement subsequent to that time & was discharged from hospital and now rescanned as outpatient . Today's study shows a normal appearance of the superior mesenteric vein with homogeneous enhancement.. Improvement since prior study-homogeneous enhancement at SMV with no intraluminal thrombus evident. The SMV actually appears slightly smaller I suspect there was minimal nonocclusive thrombus which is since resolved.; Or possibly we are seen flow artifact flow artifact. In either case this feature appears normal today. Other vascular observations for completeness:. Mild nonstenotic narrowing at the origin of the Celiac artery estimate 25-30% % stenosis.. However is branches fill nicely and it appears. SMA demonstrates minimal calcified plaque which yields 15% stenosis. SMA fills nicely as do is branches. Again the KESHAV is visualized on patent and leading towards LLQ. . Again the prominent atherosclerotic calcification of the distal abdominal aorta is at yielding at least 50% aortic stenosis just above bifurcation ABDOMEN/PELVIS Liver. The enhancement in the liver is more homogeneous today than previous study. No discrete abnormal areas of enhancement Again note prominent right lobe with fatty changes of liver. Generous caliber homogeneously enhancing portal vein with suspect some early portal venous collaterals suspect medial to the spleen. Spleenremains normal size. Pancreas Extensive dense calcifications throughout the pancreas again seen and reflect reflect old chronic pancreatitis changes no. No discrete current inflammation.. Gallbladder. We continue see enhancement of the generous thickness gallbladder wall. Unchanged.. This can reflect cholecystitis but is been seen previously on this patient on studies dating back to 2017. No biliary ductal dilatation. Kidneys satisfactory.. No urinary tract obstruction or calculi. Pelvis. Distended urinary bladder. No significant free fluid GI TRACT. Stomach. We again we see the prominent wall thickening at the proximal stomach. Most pronounced thickening at the posterior wall the proximal body stomach.. Question some minimal fluid just posterior to the stomach remaining but overall perhaps slightly improvement since Monday. Findings may Reflect gastritis but cannot exclude some additional underlying abnormalities here at the proximal stomach. Consider endoscopy follow-up particularly if upper abdominal symptoms persist. There are a few small nodes I suspect posterior the stomach. The patient's thin body habitus does crowd structures making delineation of some structures more difficultHere at the upper abdomen Large amount solid stool rectosigmoid has developed since prior study, with now generous gas proximal to this throughout large bowel.. Mode
== END ==
PROVIDERS: PCP Family Medicine; Visit Provider Family Medicine
DX: I81 Portal vein thrombosis (principal)
CPT/HCPCS: 74177; Q9967

== ENCOUNTER → 2017-12-28 15:00 | Outpatient (CLI) | payer MEDICARE, SELFPAY ==
--- NOTE | 2017-12-28 15:04 | US_ITS ---
US breast LT complete INDICATION: Follow-up abnormal mammogram, breast implants ORDERING PHYSICIAN: Han Connell MD PATIENT AGE: 57 years COMPARISON: 11/27/2017, 01/04/2013 ultrasound TECHNIQUE: Left breast ultrasound with the axilla FINDINGS: There is an 8 x 6 x 3 mm subcutaneous hypoechoic nodule in the left breast at 1:00 near the nipple likely corresponds to the mammographic abnormality. There is a small calcification in this region. This did have a similar appearance on the previous study and is not significant changed. This could be due to small fibroadenoma. Interval stability favors benign process.. INDICATION, there is a 2 mm hypoechoic nodule at 9:00 and a 5 x 4 mm hypoechoic nodule at 10:00 similar to the previous exam. Small nodes in the axilla at 18 mm. Left breast implant is identified. IMPRESSION: Stable ultrasound appearance of the hypoechoic nodule in the left breast at 1:00 corresponding to the mammographic abnormality probably benign. Recommend 6 month mammographic and sonographic follow-up BI-RADS Category: 3 Probably Benign Finding Short Term Follow-up RECOMMENDED FOLLOW-UP: 6M - 6 MONTH FOLLOW-UP (A letter has been sent to the patient regarding results of the study.)
== END ==
PROVIDERS: PCP Family Medicine; Visit Provider Family Medicine
DX: R92.8 Other abnormal and inconclusive findings on diagnostic imaging of breast (principal)
CPT/HCPCS: 76641

== ENCOUNTER → 2018-08-20 13:21 | Outpatient (POV) | payer MEDICARE, SELFPAY | PROVIDERS: PCP Family Medicine; Visit Provider Nurse Practitioner Family | DX: Z00.00 Encounter for general adult medical examination without abnormal findings (principal) ==

== ENCOUNTER → 2018-08-24 09:22 | Outpatient (CLI) | payer MEDICARE, SELFPAY ==
--- NOTE | 2018-08-24 09:37 | US_ITS ---
US abdomen limited History: Ordering Physician:Snehal Ruano APRN Patient Age: 58 years Comparison:None Findings: Pancreas:Pancreas is poorly demonstrated due to overlying bowel gas. Liver:Slight increase echogenicity of the liver with coarse echotexture. No obvious hepatic mass. There is appropriate direction of blood flow within a nondilated portal vein. Right Kidney:Unremarkable. Normal size and echogenicity. No hydronephrosis Gallbladder:No gallstones or pericholecystic fluid is evident. There are some mild nonspecific gallbladder wall thickening in the region of the upper portion of the gallbladder. Common bile duct is normal at 2 mm Impression: 1. Nonspecific increased echogenicity of the liver with coarse echotexture which may be seen with cirrhosis. 2. No gallstones. Minimal thickening of the gallbladder wall superiorly nonspecific
[2018-08-24 10:29] LABS: Basophils % 0.5 % (0.1-2.0); Eosinophils # 0.1 K/mm3 (0.0-0.4); Eosinophils % 1.2 % (0.1-12.0); Hematocrit 47.9 % (37.0-47.0); Lymphocytes # 1.7 K/mm3 (0.7-4.5); Lymphocytes % 21.9 % (10-50); Mean Corpuscular HGB Conc 31.2 g/dL (31.8-35.4); Mean Corpuscular Hemoglobin 32.1 pg (27.0-31.2); Mean Corpuscular Volume 102.8 fl (81-99); Mean Platelet Volume 8.6 fl (7.4-10.4); Monocytes # 0.3 K/mm3 (0.1-1.0); Monocytes % 3.8 % (1.7-9.3); Neutrophils # 5.6 K/mm3 (1.8-7.8); Neutrophils % 72.7 % (37.0-80.0); Platelet Count 218 K/mm3 (142-424); Red Blood Count 4.66 M/mm3 (4.20-5.40); Red Cell Distribution Width 13.1 % (11.5-17.5); White Blood Count 7.7 K/mm3 (4.8-10.8)
[2018-08-24 10:45] LABS: Ammonia 29 umol/L (19-54)
[2018-08-24 11:07] LABS: INR 0.96 (0.9-1.1)
[2018-08-24 11:42] LABS: Alanine Aminotransferase 52 U/L (12-78); Albumin Level 3.9 gm/dL (3.4-5.0); Albumin/Globulin Ratio 1.2 (1.1-1.8); Alkaline Phosphatase 383 U/L (46-116); Anion Gap 14.5 mEq/L (5-15); Aspartate Amino Transferase 39 U/L (15-37); Bilirubin,Total 0.7 mg/dL (0.2-1.0); Blood Urea Nitrogen 12 mg/dL (7-18); Calcium 9.7 mg/dL (8.5-10.1); Carbon Dioxide 30 mmol/L (21.0-32.0); Chloride 95 mmol/L (98-107); Creatinine,Serum 0.59 mg/dL (0.55-1.02); Estimated Glomerular Filt Rate 105 ml/min (>60); Ferritin 80 ng/mL (8-388); GFR (African American) 127 ML/MIN (>60); Globulin 3.3 gm/dl (1.3-3.2); Glucose 306 mg/dL (74-106); Potassium 4.5 mmoL/L (3.5-5.1); Sodium 135 mmol/L (136-145); Total Protein,Serum 7.2 gm/dL (6.4-8.2)
[2018-08-25 05:08] LABS: Iron 119 ug/dL (27-159); UIBC 247 ug/dL (131-425)
[2018-08-26 03:32] LABS: AFP, Tumor Marker 2.6 ng/mL (0.0-8.3); Iron Saturation 33 % (15-55)
== END ==
PROVIDERS: PCP Family Medicine; Visit Provider Nurse Practitioner Family
DX: R63.4 Abnormal weight loss (principal); K74.60 Unspecified cirrhosis of liver; K72.90 Hepatic failure, unspecified without coma; K86.81 Exocrine pancreatic insufficiency
CPT/HCPCS: 36415; 76705; 80053; 82105; 82140; 82728; 83540; 83550; 85025; 85610

== ENCOUNTER → 2018-10-29 15:12 | Outpatient (CLI) | payer MEDICARE, SELFPAY ==
[2018-10-29 16:45] LABS: Basophils % 0.4 % (0.1-2.0); Eosinophils # 0.1 K/mm3 (0.0-0.4); Eosinophils % 1.1 % (0.1-12.0); Hematocrit 48.1 % (37.0-47.0); Hemoglobin 15.3 g/dL (12.2-16.2); Lymphocytes # 1.5 K/mm3 (0.7-4.5); Lymphocytes % 21.3 % (10-50); Mean Corpuscular HGB Conc 31.9 g/dL (31.8-35.4); Mean Corpuscular Hemoglobin 33.3 pg (27.0-31.2); Mean Corpuscular Volume 104.4 fl (81-99); Mean Platelet Volume 7.7 fl (7.4-10.4); Monocytes # 0.5 K/mm3 (0.1-1.0); Monocytes % 6.7 % (1.7-9.3); Neutrophils % 70.5 % (37.0-80.0); Platelet Count 210 K/mm3 (142-424); Red Cell Distribution Width 13.2 % (11.5-17.5)
[2018-10-29 16:48] LABS: INR 0.98 (0.9-1.1); Prothrombin Time 10.2 seconds (9.4-11.8)
[2018-10-29 17:28] LABS: Alanine Aminotransferase 45 U/L (12-78); Albumin Level 4.1 gm/dL (3.4-5.0); Albumin/Globulin Ratio 1.3 (1.1-1.8); Alkaline Phosphatase 287 U/L (46-116); Anion Gap 11.7 mEq/L (5-15); Aspartate Amino Transferase 34 U/L (15-37); Bilirubin,Total 0.8 mg/dL (0.2-1.0); Blood Urea Nitrogen 9 mg/dL (7-18); Calcium 9.9 mg/dL (8.5-10.1); Carbon Dioxide 36 mmol/L (21.0-32.0); Chloride 94 mmol/L (98-107); Creatinine,Serum 0.47 mg/dL (0.55-1.02); Estimated Glomerular Filt Rate 136 ml/min (>60); Ferritin 106 ng/mL (8-388); GFR (African American) 165 ML/MIN (>60); Globulin 3.2 gm/dl (1.3-3.2); Glucose 254 mg/dL (74-106); Potassium 4.7 mmoL/L (3.5-5.1); Sodium 137 mmol/L (136-145); Total Protein,Serum 7.3 gm/dL (6.4-8.2)
[2018-10-29 17:28] LABS: Thyroid Stimulating Hormone 1.74 uIU/ml (0.358-3.740)
[2018-10-31 08:14] LABS: Ceruloplasmin 32.2 mg/dL (19.0-39.0); Hep A Ab, IgM Negative (Negative); Hepatitis B Core Antibody IgM Negative (Negative); Hepatitis B Surface Antigen Negative (Negative); Immunoglobulin A, Qn 307 mg/dL (87-352); Immunoglobulin G, Qn 729 mg/dL (700-1600); Iron 143 ug/dL (27-159); Iron Saturation 38 % (15-55); UIBC 234 ug/dL (131-425)
[2018-11-01 07:13] LABS: Angiotensin Converting Enzyme <15 U/L (14-82); Hepatitis C Antibody <0.1 s/co ratio (0.0-0.9); Immunoglobulin M, Qn 197 mg/dL (26-217)
[2018-11-01 07:15] LABS: Actin (Smooth Muscle) Antibody 4 Units (0-19); CA 19-9 24 U/mL (0-35); Liver-Kidney Microsomal Ab 1.2 Units (0.0-20.0); Mitochondrial (M2) Antibody <20.0 Units (0.0-20.0)
[2018-11-01 16:10] LABS: Alpha-1-Antitrypsin 142 mg/dL (90-200)
[2018-11-08 09:28] LABS: ALT (SGPT) P5P 38 IU/L (0-40); AST (SGOT) P5P 37 IU/L (0-40); Alpha 2-Macroglobulins, Qn 254 mg/dL (110-276); Apolipoprotein A-1 287 mg/dL (116-209); Bilirubin, Total 0.6 mg/dL (0.0-1.2); Cholesterol, Total 260 mg/dL (100-199); Glucose 255 mg/dL (65-99); Haptoglobin 81 mg/dL (34-200); Triglycerides 166 mg/dL (0-149)
[2018-11-09 06:21] LABS: GGT 1451 IU/L (0-60)
[2018-11-13 09:19] LABS: Antinuclear Antibodies (ANA) NEGATIVE
== END ==
PROVIDERS: Physician Assistant; Visit Provider Nurse Practitioner Family
DX: K71.8 Toxic liver disease with other disorders of liver (principal); K76.0 Fatty (change of) liver, not elsewhere classified; K74.60 Unspecified cirrhosis of liver; R94.5 Abnormal results of liver function studies; R63.4 Abnormal weight loss; R00.0 Tachycardia, unspecified
CPT/HCPCS: 36415; 80053; 80074; 81256; 82103; 82104; 82164; 82390; 82728; 82784; 83540; 83550; 84443; 85025; 85610; 86038; 86255; 86256; 86316; 86376

== ENCOUNTER → 2018-10-31 08:42 | Outpatient (CLI) | payer MEDICARE, SELFPAY ==
--- NOTE | 2018-10-31 08:44 | CT_ITS ---
PROCEDURE: CT ABDOMEN PELVIS WO/W CON CLINICAL INDICATION: ABN LIVER FUNCTION TEST, CIRRHOSIS, WGT LOSS Abnormal liver function tests, weight loss, cirrhosis, COMPARISON: ABDPELW CT abdomen pelvis w con from 12/18/2017 TECHNIQUE: IV Contrast: 75ML OPTIRAY 350 Oral Contrast 450ml Redicat Axial images obtained with sagittal and coronal reformats. All CT scans at the facility use one or more dose reduction, viz: automated exposure control, ma/kV adjustment per patient size (including targeted exams where dose is matched to indication, i.e. head), or iterative reconstruction technique. FINDINGS: Lower thorax: COPD ABDOMEN: liver enlarged right lobe of the liver. No obvious a patent masses. There is a small isodense to the in the right hepatic lobe anteriorly at approximately 8 mm not significantly changed and may be due to small attic cyst. The liver has somewhat coarse heterogeneous appearance with minimal lobularity of the surface and mild prominence of the right hepatic lobe. Gallbladder: Nondistended. No radio opaque stones. Pancreas: Severe coarse pancreatic calcification noted consistent with chronic pancreatitis. Spleen: unremarkable Adrenals: unremarkable Kidneys/ureters: unremarkable PELVIS: Reproductive: Prior hysterectomy Bladder: Mildly distended urinary bladder Appendix: Unremarkable. No distention or periappendiceal phlegmonous change. ABDOMEN & PELVIS: Stomach bowel: There is mild diffuse thickening of the gastric wall nonspecific and may in part be due to nondistention. Gastritis is also consideration. Peritoneum: No abnormal fluid collections. No obvious inflammatory changes. No free air. Lymph nodes: No enlarged lymph nodes apparent. Vasculature: No evidence of abdominal aortic aneurysm. No retroperitoneal hemorrhage evident. No evidence of superior mesenteric vein thrombosis Bones: No acute fracture IMPRESSION: Overall stable CT appearance of the abdomen and pelvis. Chronic pancreatitis. Enlarged right hepatic lobe with coarse appearance of the liver which may be secondary to cirrhosis. No evidence of superior mesenteric vein thrombosis. Mild gastric wall thickening which may in part be due to nondistention versus gastritis Dictated by: Ceasar Francisco MD 11/02/2018 04:42 Electronically signed by Ceasar Francisco MD in [place] 11/02/2018 04:42
== END ==
PROVIDERS: PCP Family Medicine; Visit Provider Nurse Practitioner Family
DX: K74.60 Unspecified cirrhosis of liver (principal); R94.5 Abnormal results of liver function studies; R63.4 Abnormal weight loss
CPT/HCPCS: 74178; Q9967

== ENCOUNTER → 2018-11-02 09:48 | Outpatient (CLI) | payer MEDICARE, SELFPAY | PROVIDERS: PCP Physician Assistant; Visit Provider Physician Assistant | DX: R00.0 Tachycardia, unspecified (principal) | CPT/HCPCS: 93225; 93226 ==

== ENCOUNTER → 2018-11-07 11:00 | Outpatient (CLI) | payer MEDICARE, SELFPAY ==
--- NOTE | 2018-11-07 | CA_ITS ---
APPROVED REPORT Exam: Pharmacologic Technologist: Mihaela Conway, Ht: 5 ft 3 in Wt: 75 lbs BSA: 1.27 m2 HR: 79 bpm BP: 164/93 mmHg Indications: Chest pain, Palpitations Medical History Medications: Lisinopril,,,,, Aspirin,,,,, Metoprolol,,,,, Vitamins,,,,, SyMBICORT,,,,, Albuterol,,,,, Estradiol,,,,, ProMETHAZINE,,,,, Prednisone,,,,, CarTIA,,,,, CarTIA,,,,, LanTUS,,,,, Stress Test Details Test: LEXISCAN HR Resting HR: 89 bpm Max Heart Rate (APMHR): 162 bpm Max HR Achieved: 115 bpm Target HR (85% APMHR): 137 bpm % of APMHR: 70 Recovery HR: 87 bpm BP Resting BP: 164/93 mmHg Max BP: 202/101 mmHg Recovery BP: 173.0/87.0 mmHg ECG Clinical Exercise duration: 04:00 min Highest Stage Achieved: Exercise capacity: 1.0 METs Stress ECG Conclusion Resting ECG: Normal sinus rhythm, cannot rule out old septal MO. Switched from exercise at patients request (limited exercise tolerance - COPD) Symptoms: Mild chest pressure, dyspnea malaise Arrhythmias/Ectopy: Occasional PAC. Rare PVC ST-T Changes: No significant changes. Conclusion: Unremarkable Lexiscan stress. Myoview images reported separately. Electronically signed by : Suraj Marley, 11/08/2018 17:04:19
--- NOTE | 2018-11-07 11:01 | NM_ITS ---
APPROVED REPORT Exam: Nuclear Stress Test Indication: Chest pain, SOB, Palpitations, Syncope, HTN, DM, Tobacco use, Family history, Hx of ND Patient Location: Outpatient Stress Tech: Mihaela Conway [place] Tech:Yamilex Del Cid, ARRT, RT (R)(N) Ht: 5 ft 3 in Wt: 75 lbs BSA: 1.27 m2 HR: 79 bpm BP: 164/93 mmHg BMI: 13.2 History: Chest pain, SOB, Palpitations, Syncope, HTN, DM, Tobacco use, Family history, Hx of ND Procedure: Patient received a 0.4 mg of intravenous Lexiscan, resting heart rate 79 bpm, resting blood pressure 164/93 mmHg, with Lexiscan maximum heart rate achived was 98 bpm which is Less than 85 % of the maximum predicted heart rate and blood pressure was 202/101 mmHg. With Lexiscan patient complained of chest pressure Electrocardiogram Resting electro cardiogram showed sinus rhythm, with Lexiscan there is less than 1.[address] segment depression noted from the baseline EKG. The EKG portion of the Lexiscan Myoview is nondiagnostic. Cardiac Stress and Resting SPECT Images: Cardiac Stress and Resting SPECT images were obtained using technetium 99m Myoview 31.4 mCi stress and 10.85 mCi at rest. Gated SPECT with analysis of segmental wall motion and calculation of the ejection fraction also done. Cardiac stress and resting SPECT images show uniform myocardial activity without segmental perfusion abnormality, computer derived ejection fraction is over 65% with no regional wall motion abnormality, right ventricle is normal size and contractility. Conclusion: 1. The EKG portion of the Lexiscan Myoview is nondiagnostic. 2. No scintigraphic evidence of reversible ischemia seen, computer derived ejection fraction is over 65% with no regional wall motion abnormality, right ventricle is normal size and contractility. 3. Normal Lexiscan Myoview study. Electronically signed by : Suraj Marley, 11/08/2018 16:55:17
--- NOTE | 2018-11-07 11:16 | HMH.ITSHM ---
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 []ESTRADIOL ASA CREON TRAZODONE VITAMINS SYMBICORT ALBUTEROL VENTOLIN MEOTPROLOL CARTIA LISINOPRIL PROMETHAZINE PREDNISONE TRIAMCINOLONE NYSTATIN FLUCONAZOLE LANTUS
--- NOTE | 2018-11-07 13:14 | CA_ITS ---
APPROVED REPORT EXAM: Comprehensive 2D, Doppler, and color-flow Echocardiogram Gericare Aide: Bouchra Castro CRT Ht: 5 ft 2 in Wt: 150lbs BSA: 1.69 BP: 130/80 mmHg Indications: Chest Pain 2D Dimensions LVOT 2.00 cm (M/F) 1.5-2.5 M-Mode Dimensions RVDd 1.50 cm (0.9-2.6) LA Diam 2.60 cm (1.9-4.0) LVDd 3.80 cm (3.5-5.7) Ao Diam 2.70 cm (2.0-3.7) LVDs 1.90 cm (3.5-5.7) AV Cusp 1.80 cm (1.5-2.6) IVSd 0.90 cm (0.6-1.1) PWd 0.70 cm (0.6-1.1) EF (Teich) 81.90% FS 50.00% EDV (Teich) 62.00 mL ESV (Teich) 11.20 mL LV Diastology E/A Ratio 1.00 Aortic Valve AoV Peak Jair. 117.00 (50-130 cm/s) AI PHT 433.00 ms AO Peak GR. 5.00 mmHg Mitral Valve MV E Max Jair. 63.20 (40-130 cm/s) MV A Velocity 61.20 (40-130 cm/s) E/A Ratio 1.00 Pulmonary Valve PA Accel Time 106.00 (>120 msec) Tricuspid Valve TR P. Velocity 350.00 cm/s RAP Estimate 10.00 mmHg RVSP 59.00 mmHg Left Ventricle Left atrium is normal size, left ventricle is normal size, visually estimated ejection fraction 55% with no regional wall motion abnormality, diastolic parameters are inconclusive. Right Ventricle Right atrium and right ventricle mildly enlarged with normal contractility. Aortic Valve Aortic valve is minimally thickened and fibrosed, there is no aortic stenosis aortic insufficiency. Mitral Valve Mitral valve is grossly normal, there is mild mitral regurgitation. Tricuspid Valve Tricuspid valve is grossly normal, there is mild tricuspid regurgitation, calculated right ventricular systolic pressure is 58 mmHg consistent with moderately elevated right ventricular systolic pressure. Pulmonic Valve Pulmonic valve is poorly visualized. Great Vessels Aortic root is normal size. Pericardium No significant pericardial effusion noted. Conclusion 1. Normal left ventricular size, preserved left ventricular systolic function, visually estimated ejection fraction 55% with no regional wall motion abnormality, diastolic parameters are inconclusive. 2. Mildly enlarged right ventricle with normal contractility. 3. Mild mitral and tricuspid regurgitation, calculated right ventricular systolic pressure is 58 mmHg consistent with moderately elevated right ventricular systolic pressure. Inferior vena cava was not well-visualized. 4. No significant pericardial effusion noted. Electronically signed by : Suraj Marley, 11/09/2018 16:02:51
== END ==
PROVIDERS: PCP Family Medicine; Visit Provider Nurse Practitioner Family
DX: R00.2 Palpitations (principal); R06.00 Dyspnea, unspecified; R07.89 Other chest pain; R94.31 Abnormal electrocardiogram [ECG] [EKG]; R07.9 Chest pain, unspecified
CPT/HCPCS: 78452; 93017; 93306; A9502; J2785

== ENCOUNTER → 2018-11-29 14:42 | Outpatient (CLI) | payer MEDICARE, SELFPAY ==
[2018-11-29 18:18] LABS: Anion Gap 13.1 mEq/L (5-15); Blood Urea Nitrogen 24 mg/dL (7-18); Calcium 10.2 mg/dL (8.5-10.1); Carbon Dioxide 33 mmol/L (21.0-32.0); Chloride 93 mmol/L (98-107); Creatinine,Serum 0.97 mg/dL (0.55-1.02); Estimated Glomerular Filt Rate 59 ml/min (>60); GFR (African American) 71 ML/MIN (>60); Potassium 4.1 mmoL/L (3.5-5.1); Sodium 135 mmol/L (136-145)
[2018-11-29 18:46] LABS: Glucose 480 mg/dL (74-106)
== END ==
PROVIDERS: PCP Family Medicine; Visit Provider Nurse Practitioner Family
DX: E11.9 Type 2 diabetes mellitus without complications (principal); I10 Essential (primary) hypertension; I25.2 Old myocardial infarction; R06.02 Shortness of breath; R07.89 Other chest pain; R94.31 Abnormal electrocardiogram [ECG] [EKG]; Z79.4 Long term (current) use of insulin
CPT/HCPCS: 36415; 80048

== ENCOUNTER → 2018-12-27 14:18 | Outpatient (CLI) | payer MEDICARE, SELFPAY ==
--- NOTE | 2018-12-27 14:25 | US_ITS ---
PROCEDURE: US EXTREMITY LT LIMITED CLINICAL INDICATION: DERMOID CYST OF LEFT LOWER EXTREMITY Palpable mass on the left leg COMPARISON: No exams were available for comparison FINDINGS: There is a well-circumscribed oval subcutaneous nodule above the left knee which measures 2.5 by 1.6 by 3 cm. This has heterogeneous echogenicity with scattered areas of decreased echogenicity along with punctate areas of increased echogenicity. There is enhanced through transmission of sound. IMPRESSION: Well-circumscribed 3 cm heterogeneous nodule in the subcutaneous tissues above the left knee. This is nonspecific. This could represent a dermoid cyst, sub a shows cyst, complex lipoma, or organized hematoma. Dictated by: Ceasar Francisco MD 12/27/2018 16:41 Electronically signed by Ceasar Francisco MD in [place] 12/27/2018 16:41
== END ==
PROVIDERS: PCP Family Medicine; Visit Provider Physician Assistant
DX: D36.7 Benign neoplasm of other specified sites (principal)
CPT/HCPCS: 76882

== ENCOUNTER → 2019-01-08 13:47 | Outpatient (POV) | payer MEDICARE, SELFPAY | PROVIDERS: Visit Provider Dermatology | DX: Z00.00 Encounter for general adult medical examination without abnormal findings (principal) ==

== ENCOUNTER → 2019-01-24 13:58 | Outpatient (CLI) | payer MEDICARE, SELFPAY ==
--- NOTE | 2019-01-24 14:02 | XR_ITS ---
PROCEDURE: XR CHEST 2V CLINICAL HISTORY: BRONCHITIS , Smoker, COPD, emphysema COMPARISON: CXR2V XR chest 2V from 12/15/2017 FINDINGS: The cardiomediastinal silhouette and pulmonary vascularity are within normal limits. Hyperinflation with hyperattenuation. Eventration of the hemidiaphragms on both sides. No lobar consolidation or collapse. There are bilateral breast implants. Mild lower thoracic curvature convex right. No acute bony findings. No acute bony abnormalities. IMPRESSION: COPD. No change with no acute finding Dictated by: Ceasar Francisco MD 01/24/2019 14:28 Electronically signed by Ceasar Francisco MD in [place] 01/24/2019 14:28
== END ==
PROVIDERS: PCP Physician Assistant; Visit Provider Physician Assistant
DX: J40 Bronchitis, not specified as acute or chronic (principal)
CPT/HCPCS: 71046

== ENCOUNTER → 2019-02-07 13:49 | Outpatient (CLI) | payer MEDICARE, SELFPAY ==
--- NOTE | 2019-02-07 13:54 | XR_ITS ---
PROCEDURE: XR CHEST 2V CLINICAL HISTORY: COPD EXACERBATION COMPARISON: CTAC CTA-CHEST from 10/20/2016 CXR2V XR chest 2V from 11/01/2017 CXR2V XR chest 2V from 12/15/2017 XR CHEST 2V from 01/24/2019 FINDINGS: Severe emphysematous changes seen with marked hyperexpansion of the lung deal and flattening and depression of the hemidiaphragms down to the muscular insertions. There is no infiltrate and there is no pleural fluid. Cardiac size is normal. There is attenuation of the peripheral pulmonary vasculature. Is difficult to be certain because of the prominent hyperlucency of the lung deal but the breast shows a rather opaque and a 1 about the possibility of previous of bilateral breast implants. IMPRESSION: Severe emphysema, no definite acute chest pathology noted Dictated by: Dr. Stewart Madrigal MD 02/07/2019 14:[address] Stewart Madrigal MD in [place] 02/07/2019 14:36
[2019-02-07 14:38] LABS: Basophils % 0.5 % (0.1-2.0); Eosinophils # 0.1 K/mm3 (0.0-0.4); Eosinophils % 2.1 % (0.1-12.0); Hematocrit 41.9 % (37.0-47.0); Hemoglobin 12.8 g/dL (12.2-16.2); Lymphocytes # 1.5 K/mm3 (0.7-4.5); Mean Corpuscular HGB Conc 30.5 g/dL (31.8-35.4); Mean Corpuscular Hemoglobin 32.5 pg (27.0-31.2); Mean Corpuscular Volume 106.5 fl (81-99); Mean Platelet Volume 8.6 fl (7.4-10.4); Monocytes # 0.3 K/mm3 (0.1-1.0); Monocytes % 5.5 % (1.7-9.3); Neutrophils # 4.1 K/mm3 (1.8-7.8); Neutrophils % 66.9 % (37.0-80.0); Platelet Count 222 K/mm3 (142-424); Red Blood Count 3.93 M/mm3 (4.20-5.40); Red Cell Distribution Width 12.4 % (11.5-17.5); White Blood Count 6.1 K/mm3 (4.8-10.8)
== END ==
PROVIDERS: PCP Family Medicine; Visit Provider Physician Assistant
DX: J40 Bronchitis, not specified as acute or chronic (principal); J44.1 Chronic obstructive pulmonary disease with (acute) exacerbation
CPT/HCPCS: 36415; 71046; 85025

== ENCOUNTER → 2019-06-19 14:58 | Outpatient (CLI) | payer MEDICARE, SELFPAY ==
--- NOTE | 2019-06-19 15:06 | XR_ITS ---
PROCEDURE: XR CHEST 2V CLINICAL HISTORY: SHORTNESS OF BREATH Wheezing COMPARISON: CTAC CTA-CHEST from 10/20/2016 CXR2V XR chest 2V from 12/15/2017 XR CHEST 2V from 01/24/2019 XR CHEST 2V from 02/07/2019 FINDINGS: The cardiomediastinal silhouette and pulmonary vascularity are within normal limits. There is COPD with hyperinflation. No lobar consolidation or collapse. There are bilateral breast implants in place. No acute bony abnormalities. IMPRESSION: COPD. No acute finding Dictated by: Ceasar Francisco MD 06/19/2019 16:26 Electronically signed by Ceasar Francisco MD in [place] 06/19/2019 16:26
== END ==
PROVIDERS: PCP Family Medicine; Visit Provider Physician Assistant
DX: R06.02 Shortness of breath (principal)
CPT/HCPCS: 71046

== ENCOUNTER → 2019-09-13 14:04 | Outpatient (CLI) | payer MEDICARE, SELFPAY ==
--- NOTE | 2019-09-13 14:07 | XR_ITS ---
PROCEDURE: XR DEXA AXIAL SKELETON CLINICAL HISTORY: POSTMENOPAUSAL COMPARISON: No exams were available for comparison FINDINGS: The right hip BMD is 0.543 with a t-score of -2.8. The left hip BMD is 0.490 with a t-score of -3.2. The lumbar spine BMD is 1.035 with a t-score of -0.1. IMPRESSION: This patient is considered osteoporotic according to the World Health Organization criteria. Fracture risk is high. Treatment is advised. Based on these results of follow-up exam is recommended in 1 year Dictated by: Ceasar Francisco MD 09/13/2019 21:37 Electronically signed by Ceasar Francisco MD in [place] 09/14/2019 09:06
--- NOTE | 2019-09-13 14:07 | MM_ITS ---
PROCEDURE: MM DIG SC MAMM IMPLANT BI CAD DIGITAL BREAST TOMOSYNTHESIS INCLUDED Patient Age:59Y CLINICAL INDICATION: SCREENING mammogram, bilateral breast implants. Oleg technique Patient does take estrogen. No new complaints . Negative family history COMPARISON: DMID DIG MAMM-IMPLANT DIAGNOSTIC from 03/31/2011 [facility] DIG MAMM-SCREEN IMPLANT from 12/21/2012 [facility] MM Dig SC mamm implant BI CAD from 11/27/2017 TECHNIQUE: Bilateral breast implants and thus Oleg technique was utilized but this includes CC and MLO images were obtained both including implant and of the breast overlying the implant both views and both breast. R2 CAD reviewed. Bilateral digital breast tomosynthesis included of the anterior tissue overlying the breast in both projections. Tomosynthesis not performed, not warranted at implant itself FINDINGS: Patient is very thin has had progressive weight loss per is since previous mammogram weighs only 72 lb currently. Possibly related to her pancreas function?. She does take estrogen . There is scant breast tissue overlying the breast implants bilaterally. With no new focal areas of concern either breast. With the patient's interval breast loss there is little residual tissue to image and I since there may be a mild diffuse edematous character of the remaining tissue which also further obscures the fibroglandular elements . Right breast: No new areas of concern. There are some scattered dense benign-appearing calcifications, similar to previous study also vascular calcifications have shown slight progression Left breast: No new areas of concern. There are a few scattered benign-appearing calcifications but similar to previous study IMPRESSION: No new areas of concern either breast- no mass evident. No suspicious findings However, today's mammogram study is Limited.-With significant progressive weight loss and extremely thin body habitus, along with what seems to be some mild diffuse edema in subcutaneous tissues which obscure scant residual fibroglandular elements, today's images reveal little detail of breast structure with thin within residual very scant breast tissue In either case, no new breast lesion evident on today's study, and the implants appear grossly satisfactory. Her other health problems appear to be more significant issue currently Would encourage follow-up 1 year particularly if she can gain weight BI-RAD Category: 2 Benign Finding(s) FOLLOW-UP: 1YR 1 Year Follow-up (A letter has been sent to the patient regarding results of the study.) Dictated by: Yosi Devine MD 09/23/2019 16:14 Electronically signed by Yosi Devine MD in [place] 09/23/2019 16:14
--- NOTE | 2019-09-13 14:08 | CT_ITS ---
PROCEDURE: CT LUNG SCREENING CLINICAL INDICATION: SCREENING FOR LUNG CANCER 98 pack year smoking history. COMPARISON: LUNGSCREEN CT lung screening from 11/27/2017 TECHNIQUE: The exam was performed on a GE Light Speed [address] scanner using 2.90 mGy CTDI. A low dose helical CT CHEST was performed on a multi-detector scanner. All CT scans at the facility use one or more dose reduction, viz: automated exposure control, ma/kV adjustment per patient size (including targeted exams where dose is matched to indication, i.e. head), or iterative reconstruction technique. The LDCT was performed in a facility that meets the criteria for the screening program. Data regarding this exam was submitted to ACR which is an approved registry. The order for this exam indicates that it came as a result of a lung cancer screening counseling shard decision-making visit that included all the elements required of such a visit including smoking cessation. The radiologist interpreting this exam meets the CMS criteria for the LDCT lung cancer screening program. The exam is reported using the Lung-RADS classification scale and reported to the ACR registry. NOTE: This study was performed for the specific purposes of lung cancer screening and is not an alternative to diagnostic chest CT. RADIATION DOSE: CTDI vol(CT dose Index-volume) = 2.90mG DLP (Dose Length Product) = 105.51 mGcm Lung Rads Category: FINDINGS: COPD with scattered areas of scarring and bronchial thickening. 2 mm noncalcified nodule right lower lobe probably unchanged. 3 mm noncalcified nodule left upper lobe probably unchanged. Old granulomatous disease with scattered calcified granulomas OTHER FINDINGS: Coronary artery calcification. Bilateral breast implants. IMPRESSION: Lung rads category 2, benign Recommend annual LDCT Dictated by: Ceasar Francisco MD 09/18/2019 10:13 Electronically signed by Ceasar Francisco MD in [place] 09/18/2019 10:13
== END ==
PROVIDERS: PCP Family Medicine; Visit Provider Physician Assistant
DX: Z12.31 Encounter for screening mammogram for malignant neoplasm of breast (principal); Z78.0 Asymptomatic menopausal state; Z87.891 Personal history of nicotine dependence; Z12.2 Encounter for screening for malignant neoplasm of respiratory organs
CPT/HCPCS: 77063; 77067; 77080

== ENCOUNTER → 2019-12-23 08:46 | Outpatient (CLI) | payer MEDICARE, SELFPAY ==
--- NOTE | 2019-12-23 08:49 | US_ITS ---
PROCEDURE: US ABDOMEN LIMITED CLINICAL INDICATION: ABN RESULTS OF LIVER FUNCTION TEST Cirrhosis COMPARISON: US ABDLM US abdomen limited from 08/24/[address] ABDOMEN PELVIS WO/W CON from 10/31/2018 FINDINGS: PANCREAS: Pancreas is not well delineated due to overlying bowel gas. CT or MRI without and with contrast with pancreatic protocol may provide further evaluation if clinically desired. LIVER: There is diffuse heterogeneous echogenicity of the liver. No focal liver lesions are evident. There is appropriate direction of blood flow within the portal vein. The portal vein is upper normal at 14 mm. RIGHT KIDNEY: Unremarkable. Normal size and echogenicity. No hydronephrosis GALLBLADDER: No gallstones, pericholecystic fluid, or biliary dilatation. IMPRESSION: Heterogeneous echogenicity of the liver which may be seen with cirrhosis. There is appropriate direction of blood flow within the portal vein which is upper limits of normal. Dictated by: Ceasar Francisco MD 12/23/2019 13:20 Ceasar Francisco MD in [place] 12/23/2019 13:20
[2019-12-23 11:16] LABS: Ammonia < 9 umol/L (9-30)
== END ==
PROVIDERS: PCP Family Medicine; Visit Provider Nurse Practitioner Family
DX: R94.5 Abnormal results of liver function studies (principal); R63.4 Abnormal weight loss; K70.30 Alcoholic cirrhosis of liver without ascites; K86.1 Other chronic pancreatitis; K86.81 Exocrine pancreatic insufficiency; K72.90 Hepatic failure, unspecified without coma; F17.290 Nicotine dependence, other tobacco product, uncomplicated
CPT/HCPCS: 36415; 76705; 82140

== ENCOUNTER → 2020-01-18 09:36 | Outpatient (CLI) | payer MEDICARE, SELFPAY ==
[2020-01-18 11:56] LABS: Coronavirus 19 IgG Antibody Negative (Negative); Coronavirus 19 IgM Antibody Negative (Negative)
== END ==
PROVIDERS: Visit Provider Internal Medicine Gastroenterology
DX: Z01.812 Encounter for preprocedural laboratory examination (principal); K85.90 Acute pancreatitis without necrosis or infection, unspecified
CPT/HCPCS: 36415; 86328

== ENCOUNTER 2020-01-20 13:23 | Day surgery (SDC) | payer MEDICARE, SELFPAY ==
[2020-01-14 12:47] VITALS: BMI 13.6
[2020-01-20] VITALS (9 sets, daily range): BP systolic 68–162; BP diastolic 47–91; PULSE 92–120; RESP 18–22; TEMP 36.3–36.8; O2SAT 100
[2020-01-20 14:03] LABS: POC Glucose,Bedside 257 (70-110)
--- NOTE | 2020-01-20 14:07 | HMH.ANESCL ---
[facility] Anesthesia Checklist - Patient Identification Patient Identification: Arm Band - Structural Data Admitted From: Home Planned Operative Procedure/s: ercp Consent for Planned Operative Procedure(s) Verified: Yes Verified Documents: Surgical Consent, History and Physical - NPO Status Verified Time NPO: 00:00 - Additional verifications Anesthesia Reactions: No - Airway Assessment C-Spine Mobility Assessed: Yes (mp1) TMJ Mobility Assessed: Yes Dentition: Poor Dentition - Neurological Assessment Level of Consciousness: Awake, Alert - Anesthesia Plan Anesthesia Risk discussed: Yes Anesthesia Plan: Verified ASA Class: III Anesthesia Type: MAC [facility] History I have reviewed the patient's past medical history: Yes Medical History: Reports:: Arrhythmia, Chronic Obstructive Pulmonary Disease (COPD), Coronary Artery Disease, Diabetes Mellitus Type 2, Home Oxygen, Hyperlipidemia, Hypertension, Lung Disease, Myocardial Infarction, Palpitations, Peripheral Vascular Disease Denies:: Cancer, Diabetes Mellitus Type 1, Internal Pacemaker, MRSA, Seizures *Have you ever received a pneumonia vaccine?: No *Have you received a flu vaccine this season?: Yes Other Medical History: Reports: Anemia, Liver Disease, Other (RESPIRATORY FAILURE) Anesthesia experience/problems:: nac Other Surgeries: Yes: Cardiac Catheterization, Colon Resection, Hernia Repair, Hysterectomy-Total, Plastic Surgery, Other. No: Pacemaker Amputation: No - *Social History Last grade of school completed: 9th or 10th Smoking Status: Current every day smoker Tobacco Type: cigarettes # Packs/Day (cigarettes): 1 #Yrs smoked (if former smoker): 40 Alcohol Intake: never Substance Use Type: denies use *Occupational Status:: disabled Housing: house *Travel in the last 8 weeks: None Family Hx:: Cancer, Coronary Artery Disease, Heart Attack
--- NOTE | 2020-01-20 14:30 | FL_ITS ---
PROCEDURE: FL ERCP CLINICAL INDICATION: chronic pancreatitis COMPARISON: No exams were available for comparison FINDINGS: Common bile duct is dilated with irregular stone stricture at its distal aspect. There is some filling of the cystic duct. There is attenuation of the biliary tree which may be seen with hepatic fibrosis or cirrhosis. The pancreatic duct is not clearly delineated. No obvious common duct stones. IMPRESSION: Narrowing of the intrahepatic biliary radicles which may be seen with hepatic fibrosis/cirrhosis. Dilated common bile duct with somewhat irregular distal narrowing/stricture. Dictated by: Ceasar Francisco MD 01/22/2020 19:29 Ceasar Francisco MD in [place] 01/22/2020 19:29
--- NOTE | 2020-01-20 15:23 | HMH.PROC ---
[facility] Procedure Note Procedure Note:: ERCP procedure Report: Endoscopic retrograde cholangiopancreatography with biliary sphincterotomy and TTS balloon dilation Endoscopist: Suleman Mendez II, MD Referring Physician: Siddharth Cotton MD Date of Procedure: January 20, 2020 Equipment: Olympus 180 side viewing endoscope duodenoscope Sedation: MAC sedation Indication: Mrs. Wilheml is a 59-year-old female with chronic pancreatitis as well as a biliary stricture. The patient has had increasing alkaline phosphatase. She did have an ERCP in March 2017 and had sphincterotomy and balloon clearance of some sludge. She did not have any biliary ductal dilation. 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 She is on Creon with meals. She continues to have some abdominal pain. She was recently seen in the office (Snehal JC) and an ultrasound was ordered. She did have a heterogeneous echogenicity of the liver with possible cirrhosis. There was no evidence of hepatopedal flow in the portal vein. Her recent alkaline phosphatase was 286. The patient did have normal total bilirubin. The patient has continued to smoke but does report alcohol cessation. Procedure: Prior to the procedure, a history and physical exam was performed, and patient's medications and allergies were reviewed. The risks, benefits and alternatives of the sedation and procedure were discussed with the patient. All questions were answered and informed consent was obtained. The patient was brought to the fluoroscopic radiology room. Patient identification and proposed procedure were verified by the physician and the nurse. The patient was placed in a swimmer's position between left lateral decubitus and prone position and the scope was passed under direct vision. Throughout the procedure, the patient's blood pressure, pulse, and oxygen saturations were monitored continuously. The ERCP was accomplished without difficulty. The patient tolerated the procedure well. Findings: The side-viewing duodenal scope was passed directly into the upper esophagus and advanced to the second portion of the duodenum. There was some deformity of the duodenal bulb consistent with prior duodenal ulcer disease. The ampulla was well visualized. Both the pancreatic duct and common bile duct were cannulated. The cholangiogram did show some stricturing distally that was only 1 cm with some distal smooth ductal deformity. Initially, I did perform widening of the sphincterotomy or extension of the sphincterotomy. The distal CBD stricture was then dilated up to 7-8 mm (with a TTS hydrostatic balloon) and the CBD diameter was maximally 9 mm. The cystic duct takeoff was low and there was full filling of the cystic duct and gallbladder with no evidence of any filling defects. There was partial filling of the common hepatic duct and there was splaying or attenuation of the intrahepatic biliary system suggestive of some hepatic fibrosis or cirrhosis. The pancreatic duct was cannulated and there was evidence of deformity of the duct within the head of the gland with partial filling of the head, neck and body of the gland. There was intra ductal calcifications and some stricturing consistent with moderate chronic pancreatitis. Impression: 1. Smooth distal CBD stricture (from chronic pancreatitis) status post TTS balloon dilation (8 mm) 2. Normal cholecystogram 3. Attenuation of intrahepatic biliary system suggestive of hepatic fibrosis/cirrhosis 4. Moderate to severe chronic pancreatitis Plan: I will again recommend complete cessation of smoking. This does increase risk of progression of chronic pancreatitis as well as secondary pancreatic malignancy. I would continue the Creon. I am not convinced that the alkaline phosphatase and hepatic fibrosis is secondary to the stricture. Her serologies have been normal. I would consider trial of corticosteroid but this may g
[2020-01-20 16:39] LABS: POC Glucose,Bedside 191 (70-110)
[2020-01-21 09:32] LABS: POC Glucose,Bedside 260 (70-110)
== END 2020-01-20 16:30 | disposition home or self-care (01) ==
PROVIDERS: PCP Family Medicine; Visit Provider Internal Medicine Gastroenterology
DX: Z87.19 Personal history of other diseases of the digestive system (principal); K86.1 Other chronic pancreatitis; K83.1 Obstruction of bile duct; R79.89 Other specified abnormal findings of blood chemistry; J44.9 Chronic obstructive pulmonary disease, unspecified; I25.10 Atherosclerotic heart disease of native coronary artery without angina pectoris; E78.5 Hyperlipidemia, unspecified; I10 Essential (primary) hypertension; I25.2 Old myocardial infarction; Z99.81 Dependence on supplemental oxygen; D64.9 Anemia, unspecified; Z72.0 Tobacco use
CPT/HCPCS: 43262; 43277; 74330; 82962; 94640; C1726; Q9967

== ENCOUNTER 2020-02-01 20:13 | Observation (INO) | payer MEDICARE, SELFPAY ==
[2020-02-01] VITALS (7 sets, daily range): BP systolic 155–174; BP diastolic 88–110; PULSE 79–95; RESP 15–17; TEMP 37.2; O2SAT 95–100; BMI 13.1
--- NOTE | 2020-02-01 20:27 | HMH.EDGENADL ---
ED Disposition Clinical Impression: Spasm, Hyperglycemia, Hyponatremia Disposition: Admitted As Inpatient Condition on Discharge: Fair Referrals: Han Connell MD [Staff Physician] - - Critical Care Critical Care Time: No Attestation: On 02/01/20, the high probability of a clinically significant, sudden or life threatening deterioration of the following system(s) required my full and direct attention, intervention and personal management. The time I documented below is in addition to time spent performing reported procedures but includes the following listed in this critical care notation. Medical Decision Making - Medical Records Medical records reviewed: Yes: I reviewed the patient's medical records. MR Laure: 59yo presents to the ED with left arm twitching/spasms that has since resolved. She arrives to the ED hemodynamically stable with reassuring vital signs and looks good on exam. She denies any pain or complaints at this time. Will get labs and urine and reassess. On reassessment, patient remains well. She denies any additional complaints at this time. Her labs are showing hyperglycemia, she was given IV insulin and has had a bolus of normal saline. We will recheck a blood sugar. Her sodium is low, corrected it would be normal. Unfortunately, the patient needed to urinate and was walking fine without assistance, but states that she had another spasm while she was in the bathroom and this caused her to fall. She has some new sacral pain and she did hit her head. Given this we will get x-rays of her pelvis and CT head and reassess. Patient remains well, is tolerating p.o. CT head reviewed and nonactionable. Spoke with admitting physician and she will be admitted for further evaluation and treatment. - Damien Inquiry Pt receiving controlled substance: No Vital Signs: 02/01/20 20:28 Temperature 99.0 F Temperature Source Oral Pulse Rate [Right] 89 Respiratory Rate 16 Blood Pressure [Right Arm] 174/95 H Blood Pressure Mean [Right Arm] 121 Blood Pressure Source [Right Arm] Automatic Cuff Blood Pressure Position [Right Arm] Supine 02 Sat by Pulse Oximetry 100 Oxygen Delivery Method Nasal Cannula Oxygen Flow Rate (LPM) 2 - Lab Data Lab Results 02/01/20 20:30: WBC 11.0 H, RBC 3.79 L, Hgb 11.1 L, Hct 40.8, MCV 107.7 H, MCH 29.2, MCHC 27.1 L, RDW 13.6, Plt Count 378, MPV 8.0, Neut % (Auto) 76.2, Lymph % (Auto) 20.1, [place] % (Auto) 3.2, Eos % (Auto) 0.1, Baso % (Auto) 0.3, Neut # (Auto) 8.4 H, Lymph # (Auto) 2.2, [place] # (Auto) 0.4, Eos # (Auto) 0.0, Baso # (Auto) 0.0 02/01/20 20:30: Sodium 117 L, Potassium 4.6, Chloride 74 L, Carbon Dioxide 32 H, Anion Gap 15.6 H, BUN 5 L, Creatinine 0.60, Estimated Creat Clear 53, Estimated GFR 102, Est GFR ( Amer) 124, Glucose 1045 H*, Calcium 9.5, Total Bilirubin 0.7, AST 44 H, ALT 40, Alkaline Phosphatase 663 H, Total Protein 6.8, Albumin 4.1, Globulin 2.7, Albumin/Globulin Ratio 1.5, Amylase < 30 L 02/01/20 20:30: Lipase 18 L 02/01/20 20:30: SARS-CoV-2 IgG Ab (Rapid) Negative, SARS-CoV-2 IgM Ab (Rapid) Negative 02/01/20 20:50: Urine Color Yellow, Urine Appearance Clear, Urine pH 7.0, Ur Specific [place] <= 1.005, Urine Protein Negative, Urine Glucose (UA) 3+, Urine Ketones Negative, Urine Blood Negative, Urine Nitrate Negative, Urine Bilirubin Negative, Urine Urobilinogen 0.2, Ur Leukocyte Esterase Negative, Amorphous Sediment Trace 02/01/20 21:26: VBG pH 7.33, VBG pCO2 55.2 H, VBG pO2 46.5 H, VBG HCO3 28.7, VBG Total CO2 30.4 H, VBG O2 Saturation 81.0 H, VBG Base Excess 2.8 H Result diagrams: 02/01/20 20:30 02/01/20 20:30 Orders (Tests/Meds): ED MEDICATIONS Generic Name Dose Route Start Last Admin Trade Name Freq PRN Reason Stop Dose Admin Sodium Chloride 500 mls @ 999 mls/hr 02/01/20 21:15 02/01/20 21:09 Sod Chlor 0.9% 1000ml Bag IV 02/01/20 21:45 999 mls/hr .[id number] YVONNE Administration Discontinued Medications Generic Name Dose Route
[2020-02-01 20:48] LABS: Eosinophils % 0.1 % (0.1-12.0); Lymphocytes # 2.2 K/mm3 (0.7-4.5); Mean Corpuscular Hemoglobin 29.2 pg (27.0-31.2); Red Cell Distribution Width 13.6 % (11.5-17.5)
[2020-02-01 20:53] LABS: Alanine Aminotransferase 40 U/L (12-78); Albumin Level 4.1 g/dl (3.5-5.0); Albumin/Globulin Ratio 1.5 (1.1-1.8); Anion Gap 15.6 mEq/L (5-15); Aspartate Amino Transferase 44 U/L (14-36); Bilirubin,Total 0.7 mg/dl (0.2-1.3); Blood Urea Nitrogen 5 mg/dl (7-17); Calcium 9.5 mg/dl (8.4-10.2); Carbon Dioxide 32 mmol/L (22.0-30.0); Creatinine Clearance Estimated 53 mL/min (50-200); Estimated Glomerular Filt Rate 102 ml/min (>60); GFR (African American) 124 ML/MIN (>60); Globulin 2.7 g/dL (1.3-3.2); Potassium 4.6 mmoL/L (3.5-5.1); Sodium 117 mmol/L (136-145); Total Protein,Serum 6.8 g/dl (6.3-8.2)
[2020-02-01 20:55] LABS: Basophils % 0.3 % (0.1-2.0); Hematocrit 40.8 % (37.0-47.0); Hemoglobin 11.1 g/dL (12.2-16.2); Lymphocytes % 20.1 % (10-50); Mean Corpuscular HGB Conc 27.1 g/dL (31.8-35.4); Mean Corpuscular Volume 107.7 fl (81-99); Monocytes # 0.4 K/mm3 (0.1-1.0); Monocytes % 3.2 % (1.7-9.3); Neutrophils # 8.4 K/mm3 (1.8-7.8); Neutrophils % 76.2 % (37.0-80.0); Platelet Count 378 K/mm3 (142-424); Red Blood Count 3.79 M/mm3 (4.20-5.40)
[2020-02-01 20:56] LABS: Microscopic, Urine URINE MICROSCOPIC (MICROSCOPIC)
[2020-02-01 20:59] LABS: Lipase 18 U/L (23-300)
[2020-02-01 21:01] LABS: Chloride 74 mmol/L (98-107)
[2020-02-01 21:02] LABS: Alkaline Phosphatase 663 U/L (38-126); Amylase < 30 U/L (30-110)
[2020-02-01 21:07] LABS: Appearance,Urine CLEAR (Clear); Bilirubin,Urine Negative (Negative); Blood, Urine Negative (Negative); Color,Urine YELLOW (Yellow); Glucose,Urine (UA) 3+ (Negative); Ketones,Urine Negative (Negative); Leukocyte Esterase,Urine Negative (Negative); Nitrate,Urine Negative (Negative); Protein,Urine Negative (Negative); Specific Gravity, Urine <= 1.005 (1.005-1.030); Urobilinogen,Urine 0.2 EU/dl (0.2)
[2020-02-01 21:14] LABS: Glucose 1045 mg/dl (74-100)
[2020-02-01 21:17] LABS: Amorphous Sediment,Urine Trace /lpf
[2020-02-01 21:27] LABS: VBG Base Excess 2.8 mmol/L (-2.4-2.3); VBG HCO3 28.7 mmol/L (23-30); VBG PH 7.33 mmol/L (7.31-7.41); VBG PO2 46.5 mmol/L (28-40); VBG Total CO2 30.4 mmol/L (23-27)
[2020-02-01 21:28] LABS: VBG PCO2 55.2 mmol/L (35-51)
--- NOTE | 2020-02-01 21:40 | XR_ITS ---
PROCEDURE: XR PELVIS 1-2V CLINICAL INDICATION: fall COMPARISON: No exams were available for comparison TECHNIQUE: XR Pelvis AP View FINDINGS: No fracture or dislocation is evident. No significant degenerative change. The SI joints and symphysis pubis appear normal. Purvis catheter in place. No lytic or blastic change. IMPRESSION: No acute findings. Dictated by: Dr. Stewart Madrigal MD 02/02/2020 08:33 Dr. Stewart Madrigal MD in [place] 02/02/2020 08:33
--- NOTE | 2020-02-01 21:40 | XR_ITS ---
PROCEDURE: XR SACRUM COCCYX MIN 2V CLINICAL INDICATION: fall COMPARISON: No exams were available for comparison FINDINGS: The sacrum and coccyx appear grossly intact although the lower sacrum and coccyx are somewhat poorly seen due to prominent overlying stool bowel gas on the AP projection. If there is a strong clinical suspicion of sacral or coccygeal injury suggest a follow-up CT scan of the pelvis better evaluation. There is a Purvis catheter in place. IMPRESSION: No acute findings but the lower sacrum and coccyx are somewhat poorly evaluated on these images. Dictated by: Dr. Stewart Madrigal MD 02/02/2020 08:32 Dr. Stewart Madrigal MD in [place] 02/02/2020 08:32
--- NOTE | 2020-02-01 21:40 | XR_ITS ---
PROCEDURE: XR CHEST AP CLINICAL HISTORY: fall COMPARISON: CT CTAC CTA-CHEST from 10/20/2016 DX XR CHEST 2V from 01/24/2019 CR XR CHEST 2V from 02/07/2019 CR XR CHEST 2V from 06/19/2019 FINDINGS: The cardiomediastinal silhouette and pulmonary vascularity are within normal limits. There is hyperexpansion of the lung deal but I see no infiltrate. There is a calcified granuloma left base. There is no pleural fluid. There are bilateral breast implants noted. IMPRESSION: Ycfi-yv-lchtitlg emphysematous changes, no acute chest pathology noted Dictated by: Dr. Stewart Madrigal MD 02/02/2020 08:35 Dr. Stewart Madrigal MD in [facility] 02/02/2020 08:35
--- NOTE | 2020-02-01 21:40 | CT_ITS ---
PROCEDURE: CT CERVICAL SPINE WO CON CLINICAL INDICATION: fall COMPARISON: No exams were available for comparison TECHNIQUE: Axial images obtained with sagittal and coronal reformats. All CT scans at the facility use one or more dose reduction, viz: automated exposure control, ma/kV adjustment per patient size (including targeted exams where dose is matched to indication, i.e. head), or iterative reconstruction technique. Axial spiral CT scanning performed of the cervical spine beginning at the base of the skull and continuing to the upper T-spine. 3-D multiplanar reconstruction with 3-D manipulation of volumetric data set in image rendering was completed by the radiologist and/or technologist with the supervision of the radiologist on independent workstation. FINDINGS: No fracture nor subluxation is evident. Normal prevertebral soft tissues. Facets, neural foramen and vertebral bodies intact and unremarkable. There is mild anterior osteophytic spurring at the C3-4 level. The spinal canal is normal in size throughout. There is no abnormal disc protrusion. 1 Normal C1/C2 relationships. Apices of lungs show emphysematous changes. IMPRESSION: Cervical spine intact with no fracture nor subluxation. Dictated by: Dr. Stewart Madrigal MD 02/02/2020 08:30 Dr. Stewart Madrigal MD in [facility] 02/02/2020 08:30
--- NOTE | 2020-02-01 21:40 | CT_ITS ---
PROCEDURE: CT HEAD/BRAIN WO CON CLINICAL INDICATION: fall COMPARISON: No exams were available for comparison TECHNIQUE: Axial images obtained. All CT scans at the facility use one or more dose reduction, viz: automated exposure control, ma/kV adjustment per patient size (including targeted exams where dose is matched to indication, i.e. head), or iterative reconstruction technique. FINDINGS: No midline shift, mass effect, intracranial hemorrhage, hydrocephalus, or extra-axial fluid collection is evident. The basilar cisterns are mildly prominent. The sylvian fissures and cortical sulci somewhat prominent. There are no significant chronic ischemic white matter changes. The calvarium has an unremarkable appearance. There is minimal focal soft tissue swelling of the scalp left posterior superior location. No mastoid effusion. No sinus air-fluid level. IMPRESSION: Findings of mild cortical atrophy, no acute intracranial pathology noted Dictated by: Dr. Stewart Madrigal MD 02/02/2020 08:28 Dr. Stewart Madrigal MD in [facility] 02/02/2020 08:28
[2020-02-01 22:15] LABS: Coronavirus 19 IgG Antibody Negative (Negative); Coronavirus 19 IgM Antibody Negative (Negative)
[2020-02-01 23:58] LABS: Anion Gap 6.8 mEq/L (5-15); Blood Urea Nitrogen 7 mg/dl (7-17); Carbon Dioxide 31 mmol/L (22.0-30.0); Chloride 93 mmol/L (98-107); Creatinine Clearance Estimated 80 mL/min (50-200); Estimated Glomerular Filt Rate 163 ml/min (>60); GFR (African American) 198 ML/MIN (>60); Potassium 3.8 mmoL/L (3.5-5.1); Sodium 127 mmol/L (136-145)
[2020-02-02] VITALS (8 sets, daily range): BP systolic 111–161; BP diastolic 69–98; PULSE 70–92; RESP 16–22; TEMP 36.9–37.2; O2SAT 98–100; BMI 13.7
[2020-02-02] LABS: Calcium 8.4 mg/dl (8.4-10.2); Glucose 606 mg/dl (74-100)
--- NOTE | 2020-02-02 00:26 | PC.NURSE ---
pt set up Belle as her password for family members. password communicated to SILVESTRE Dang
--- NOTE | 2020-02-02 00:38 | PC.NURSE ---
patient up o floor via stretcher @ 00:34.
[2020-02-02 06:10] LABS: POC Glucose,Bedside 394 (70-110)
[2020-02-02 07:25] LABS: Chloride 99 mmol/L (98-107); Potassium 3.2 mmoL/L (3.5-5.1); Sodium 134 mmol/L (136-145)
[2020-02-02 07:28] LABS: Anion Gap 6.2 mEq/L (5-15); Blood Urea Nitrogen 6 mg/dl (7-17); Calcium 8.4 mg/dl (8.4-10.2); Carbon Dioxide 32 mmol/L (22.0-30.0); Creatinine Clearance Estimated 112 mL/min (50-200); Estimated Glomerular Filt Rate 228 ml/min (>60); GFR (African American) 276 ML/MIN (>60); Glucose 316 mg/dl (74-100); Magnesium 1.4 mg/dl (1.6-2.3)
--- NOTE | 2020-02-02 09:48 | HMH.HP ---
*Admission Date: 02/01/20 *Chief complaint: muscle spasm; hyperglycemia *History of present illness: Makenzie is a 59-year-old white female with a history of hypertension, COPD, chronic pancreatitis, and insulin-dependent diabetes mellitus who presented to the emergency room last evening when she thought she might be having a stroke. She developed sudden onset of spasm in her left arm and could not move it properly and could not mixing picker tender objects. She became concerned about the possibility of a stroke and therefore presented to the emergency room. On evaluation in the ER, she was hyperglycemic with a blood sugar of 1045 but was not acidotic. Her sodium was low but the corrected value was in the normal range. Magnesium was low at 1.4. While in the emergency room, she got up to go to the bathroom and apparently fell landing on her coccyx and hitting her head. Further work-up ensued including CT of the cervical spine and x-rays of her lower back all of which were negative. Because of her uncontrolled blood sugars, she has been admitted for fluids, insulin, and correction of her electrolytes. Her potassium is low this morning as her sugar has come down. Her only complaint is pain in her coccyx. Makenzie has been noncompliant with checking blood sugars and taking insulin at home. She cannot tell me what dose of insulin she takes and admits to often forgetting to take it. [facility] History Medical History: Reports:: Arrhythmia, Chronic Obstructive Pulmonary Disease (COPD), Coronary Artery Disease, Home Oxygen, Hyperlipidemia, Hypertension, Myocardial Infarction, Palpitations, Peripheral Vascular Disease Denies:: Cancer, Diabetes Mellitus Type 1, Diabetes Mellitus Type 2, Internal Pacemaker, MRSA, Seizures *Have you ever received a pneumonia vaccine?: Yes *Have you received a flu vaccine this season?: No Other Medical History: Reports: Anemia, Hormone Therapy, Liver Disease, Other (Chronic pancreatitis) Other Surgeries: Yes: Cardiac Catheterization, Hernia Repair (Incarcerated hernia), Hysterectomy-Total, Plastic Surgery (Breast augmentation), Tubal Ligation, Other (EGD, ERCP). No: Pacemaker Amputation: No - *Social History Last grade of school completed: GED Smoking Status: Current every day smoker Tobacco Type: cigarettes # Packs/Day (cigarettes): 1 #Yrs smoked (if former smoker): 40 Alcohol Intake: former Substance Use Type: denies use *Occupational Status:: disabled Housing: house Household Members: significant other *Travel in the last 8 weeks: None Family Hx:: Asthma, Coronary Artery Disease, Hyperlipidemia Review of Systems - Constitutional Reports headache(s) (Related to fall), Reports weakness - Eyes Denies change in vision - ENT Reports dry mouth, Reports nasal congestion, Denies abnormal hearing, Denies difficulty swallowing - *Cardiovascular Denies chest pain, Denies shortness of breath, Denies leg swelling - *Respiratory Reports chest congestion, Reports cough, Denies wheezing - *Gastrointestinal Reports abdominal pain, Denies change in bowel habits, Denies bright, red blood in stools - *Genitourinary Denies abnormal vaginal bleeding, Denies painful urination - *Musculoskeletal Reports back pain, Reports muscle cramps - Integumentary/Breasts Denies change in skin color - *Neurologic Reports weakness, Denies confusion, Denies seizure-like activity - Psychiatric Reports abnormal sleep pattern, Denies thoughts of hurting/killing yourself - Endocrine Denies cold intolerance - Hematologic/Lymphatic Denies easy bleeding - Allergic/Immunologic Denies itchy eyes Meds Home Medications Medication Instructions Recorded Confirmed Type Albuterol Sulfate [Albuterol 2 puff IH QID PRN 03/27/17 02/02/20 History 0.042% 1.25mg/3mL neb] Aspirin [Aspir 81] 81 mg PO DAILY 03/27/17 02/02/20 History Multivitamin [Multivitamins] 1 each PO DAILY 03/27/17 02/02/20 History estradioL [Estradiol] 0.5 mg PO DAILY 03/27/17
--- NOTE | 2020-02-02 10:01 | P.CONPHA_ITS ---
[facility] Pharmacy VTE Monitoring - Patient Demographics Admission date: 02/02/20 Report Date: 02/02/20 Time: 10:01 Allergies/Adverse Reactions: Patient Allergies cinnamon Allergy (Severe, Verified 01/20/20 13:46) TONGUE SWELL, NAUSEA acetaminophen Adverse Reaction (Unknown, Verified 01/20/20 13:46) LIVER ISSUE Height: 1.6 m Weight: 35.125 kg Patient Problems: Current Active Problems Spasm (Acute) Hyperglycemia (Acute) Hyponatremia (Acute) - VTE Risk Labs: VTE Related Lab Results Hgb 11.1 g/dL (12.2-16.2) L 02/01/20 20:30 Hct 40.8 % (37.0-47.0) 02/01/20 20:30 Plt Count 378 K/mm3 (142-424) 02/01/20 20:30 BUN 6 mg/dl (7-17) L 02/02/20 06:48 Creatinine 0.30 mg/dl (0.52-1.04) L D 02/02/20 06:48 Estimated Creat Clear 112 mL/min (50-200) 02/02/20 06:48 Was VTE Risk Assessment Performed: Yes VTE Score: 4 VTE Risk Level: Low Risk - Prophylaxis Types of VTE Prophylaxis: TEDS Knee High (RYLEE HOSE ORDERED)
[2020-02-02 11:17] LABS: POC Glucose,Bedside 450 (70-110)
[2020-02-02 15:50] LABS: POC Glucose,Bedside 124 (70-110)
--- NOTE | 2020-02-02 16:39 | PC.NURSE ---
Pt has been pleasant and cooperative this shift. A&O X4. Pt has complained of pain X1 and has been medicated with Toradol per MAR. Pt ambulates with stand-by assistance in the room and uses the BSC to void clear, yellow urine without issue. No BM this shift. Skin is C/D/I. No edema noted. Lungs CTA. Pt is receiving O2 via NC @ 2 LPM with sats. >90%. FSBS results have been 450 and 124 this shift. 20 G peripheral IV in the RT AC is patent and infusing NS @ 50 ML/HR. VSS. Call light within reach. Will continue to monitor.
--- NOTE | 2020-02-02 17:19 | PC.NURSE ---
Pt has been pleasant and cooperative this shift. A&O X4. Pt has complained of pain X1 and has been medicated with Toradol per MAR. Pt ambulates with stand-by assistance in the room and uses the BSC. No BM this shift. F/C patent and draining clear, yellow urine at bedside to gravity. Skin is C/D/I. No edema noted. Lungs CTA. Pt is receiving O2 via NC @ 2 LPM with sats. >90%. FSBS results have been 450 and 124 this shift. 20 G peripheral IV in the RT AC is patent and infusing NS @ 50 ML/HR. VSS. Call light within reach. Will continue to monitor.
[2020-02-02 21:01] LABS: POC Glucose,Bedside 247 (70-110)
--- NOTE | 2020-02-03 03:18 | PC.NURSE ---
No acute changes noted. Pt has rested well this shift. Has been encouraged to turn/reposition. Has c/o some discomfort to tailbone. She has ambulated to BSC and BR with assist x1. Has had loose stools this shift. F/C draining to bedside with dark, yellow urine. Last fsbs was 247. Medicated per apr. Pt remains on 2L O2 NC. Pt wears O2 at home. No concerns noted at this time. Will continue to monitor.
[2020-02-03 03:39] VITALS: BP 119/70; PULSE 78; RESP 22; TEMP 36.9; O2SAT 96
[2020-02-03 05:00] VITALS: BMI 14.4
[2020-02-03 06:18] LABS: POC Glucose,Bedside 153 (70-110)
[2020-02-03 06:25] LABS: Chloride 100 mmol/L (98-107); Sodium 133 mmol/L (136-145)
[2020-02-03 06:26] LABS: Potassium 4.8 mmoL/L (3.5-5.1)
[2020-02-03 06:28] LABS: Alanine Aminotransferase 23 U/L (12-78); Alkaline Phosphatase 357 U/L (38-126); Anion Gap 3.8 mEq/L (5-15); Aspartate Amino Transferase 28 U/L (14-36); Bilirubin,Total 0.5 mg/dl (0.2-1.3); Blood Urea Nitrogen 9 mg/dl (7-17); Carbon Dioxide 34 mmol/L (22.0-30.0); Creatinine Clearance Estimated 118 mL/min (50-200); Estimated Glomerular Filt Rate 228 ml/min (>60); GFR (African American) 276 ML/MIN (>60)
[2020-02-03 06:29] LABS: Albumin Level 2.8 g/dl (3.5-5.0); Albumin/Globulin Ratio 1.2 (1.1-1.8); Globulin 2.4 g/dL (1.3-3.2); Glucose 149 mg/dl (74-100); Total Protein,Serum 5.2 g/dl (6.3-8.2)
[2020-02-03 07:43] VITALS: BP 146/88; PULSE 88; RESP 22; TEMP 36.8; O2SAT 96
--- NOTE | 2020-02-03 08:51 | HMH.ACPN2 ---
<Oliva Kim - Last Filed: 02/03/20 08:55> Internal Medicine - PN: Subj *Date: 02/03/20 *Time: 08:55 Interval history: Patient's complaint this morning is that her bottom hurts and her head hurts from the fall. She is eating some. Breathing is at normal. She is anxious to go home. Blood sugars are much improved. Exam Vital signs and Labs for Last 24 Hours: Temp Pulse Resp BP Pulse Ox 98.3 F 88 22 146/88 H 96 02/03/20 07:43 02/03/20 07:43 02/03/20 07:43 02/03/20 07:43 02/03/20 07:43 Laboratory Results - last 24 hr 02/02/20 11:06: POC Glucose 450 H* 02/02/20 15:42: POC Glucose 124 H 02/02/20 20:36: POC Glucose 247 H 02/03/20 05:52: POC Glucose 153 H 02/03/20 05:54: Sodium 133 L, Potassium 4.8 D, Chloride 100, Carbon Dioxide 34 H, Anion Gap 3.8 L, BUN 9 D, Creatinine 0.30 L, Estimated Creat Clear 118, Estimated GFR 228, Est GFR ( Amer) 276, Glucose 149 H D, Calcium 8.0 L, Total Bilirubin 0.5, AST 28 D, ALT 23 D, Alkaline Phosphatase 357 H, Total Protein 5.2 L, Albumin 2.8 L D, Globulin 2.4, Albumin/Globulin Ratio 1.2 I & O for Last 24 hours: Intake & Output 01/31/20 02/01/20 02/02/20 02/03/20 11:59 11:59 11:59 11:59 Intake Total 4166 / 4166 2593 / 2593 Output Total 2525 / 2525 1200 / 1200 Balance 1641 / 1641 1393 / 1393 Weight 77 lb 7 oz 81 lb 9 oz - Constitutional no acute distress Comments: Sitting up in bedside chair eating breakfast. - *Routine Respiratory Exam Present: CTA bilaterally (Anteriorly and posteriorly with very diminished breath sounds) - *Routine Cardiovascular Exam Present: RRR - *Routine Abdominal Exam Present: soft, normoactive bowel sounds. Absent: tenderness, distended - *Routine Extremities Exam Absent: edema, calf tenderness - Routine Back/Spine/Pelvis Exam Pelvis: Present: buttock tenderness. Absent: buttock ecchymosis, buttock swelling - *Routine Neurological Exam Present: alert, oriented X3 Tenderness in the left and right occipital areas. Assessment and Plan (1) Hyperglycemia Status: Acute Category: Medical Code(s): R73.9 - Hyperglycemia, unspecified (2) IDDM (insulin dependent diabetes mellitus) Status: Chronic Category: Medical Code(s): E11.9 - Type 2 diabetes mellitus without complications; Z79.4 - longterm (current) use of insulin (3) Electrolyte imbalance Status: Acute Category: Medical Code(s): E87.8 - Other disorders of electrolyte and fluid balance, not elsewhere classified (4) Hypomagnesemia Status: Acute Category: Medical Code(s): E83.42 - Hypomagnesemia (5) Hypokalemia Status: Acute Category: Medical Code(s): E87.6 - Hypokalemia (6) Chronic pancreatitis Status: Acute Category: Medical Code(s): K86.1 - Other chronic pancreatitis (7) COPD (chronic obstructive pulmonary disease) Status: Acute Category: Medical Code(s): J44.9 - Chronic obstructive pulmonary disease, unspecified (8) Tobacco use disorder Status: Acute Category: Medical Code(s): F17.200 - Nicotine dependence, unspecified, uncomplicated (9) Noncompliance w/medication treatment due to intermit use of medication Status: Acute Category: Medical Code(s): Z91.14 - Patient's other noncompliance with medication regimen (10) Hyponatremia Status: Acute Category: Medical Code(s): E87.1 - Hypo-osmolality and hyponatremia (11) Acute bronchitis Status: Acute Category: Medical Code(s): J20.9 - Acute bronchitis, unspecified (12) Hypertension Status: Chronic Qualifiers: Hypertension type: essential hypertension Qualified Code(s): I10 - Essential (primary) hypertension Category: Medical Code(s): I10 - Essential (primary) hypertension - Assessment and plan all Dx Assessment and Plan for all problems:: Patient will be discharged home today on magnesium. Discussed taking her insulin every day and making it part of her schedule. <Han Connell - Last
--- NOTE | 2020-02-03 11:17 | HMH.DCSUM ---
General - General Admission date:: 02/02/20 <Han Connell - 02/23/20 21:51> 02/02/20 <Anita Whittaker - 02/03/20 11:23> Discharge date: 02/03/20 <Anita Whittaker - 02/03/20 11:23> HPI HPI: Makenzie was a 59-year-old white female with a history of hypertension, COPD, chronic pancreatitis, and insulin-dependent diabetes mellitus who presented to the emergency room when she thought she might be having a stroke. She developed sudden onset of spasm in her left arm and could not move it properly and could not pickle pumper objects. She became concerned about the possibility of a stroke and therefore presented to the emergency room. On evaluation in the ER, she was hyperglycemic with a blood sugar of 1045 but was not acidotic. Her sodium was low but the corrected value was in the normal range. Magnesium was low at 1.4. While in the emergency room, she got up to go to the bathroom and apparently fell landing on her coccyx and hitting her head. Further work-up ensued including CT of the cervical spine and x-rays of her lower back all of which were negative. Because of her uncontrolled blood sugars, she was admitted for fluids, insulin, and correction of her electrolytes. Her potassium was low the following morning as her sugar had come down. Her only complaint was pain in her coccyx. Makenzie had been noncompliant with checking blood sugars and taking insulin at home. She was unable to verbalize what dose of insulin she was taking and admitted to often forgetting to take it. <Anita Whittaker - 02/03/20 11:23> Hospital Course Hospital Course: By the morning of 02/03/2020, her only complaint was some discomfort from the fall. Her blood sugars were improved and she was felt stable to be discharged home on oral magnesium. She was instructed to make insulin part of her daily schedule and followup in the office of A in one week. <Anita Whittaker - 02/03/20 11:23> Objective Vital signs: Temp Pulse Resp BP Pulse Ox 98.3 F 88 22 146/88 H 96 02/03/20 07:43 02/03/20 07:43 02/03/20 07:43 02/03/20 07:43 02/03/20 07:43 <Han Connell - 02/23/20 21:51> Temp Pulse Resp BP Pulse Ox 98.3 F 88 22 146/88 H 96 02/03/20 07:43 02/03/20 07:43 02/03/20 07:43 02/03/20 07:43 02/03/20 07:43 <PanfiloAnita - 02/03/20 11:23> Results Labs on day of discharge: Labs from last 24 hours 02/03/20 02/03/20 02/02/20 05:54 05:52 20:36 Sodium 133 L Potassium 4.8 D Chloride 100 Carbon Dioxide 34 H Anion Gap 3.8 L BUN 9 D Creatinine 0.30 L Estimated Creat Clear 118 Estimated GFR 228 Est GFR ( Amer) 276 Glucose 149 H D POC Glucose 153 H 247 H Calcium 8.0 L Total Bilirubin 0.5 AST 28 D ALT 23 D Alkaline Phosphatase 357 H Total Protein 5.2 L Albumin 2.8 L D Globulin 2.4 Albumin/Globulin Ratio 1.2 02/02/20 02/02/20 15:42 11:06 Sodium Potassium Chloride Carbon Dioxide Anion Gap BUN Creatinine Estimated Creat Clear Estimated GFR Est GFR ( Amer) Glucose POC Glucose 124 H 450 H* Calcium Total Bilirubin AST ALT Alkaline Phosphatase Total Protein Albumin Globulin Albumin/Globulin Ratio <Anita Whittaker - 02/03/20 11:23> DS: Diagnosis - Discharge Diagnosis (1) Hyperglycemia Status: Acute (2) IDDM (insulin dependent diabetes mellitus) Status: Chronic (3) Electrolyte imbalance Status: Acute (4) Hypomagnesemia Status: Acute (5) Hypokalemia Status: Acute (6) Chronic pancreatitis Status: Acute (7) COPD (chronic obstructive pulmonary disease) Status: Acute (8) Tobacco use disorder Status: Acute (9) Noncompliance w/medication treatment due to intermit use of medication Status: Acute (10) Hyponatremia Status: Acute (11) Acute bronchitis Status: Acute (12) Hypertension Status: Chronic <Christa
[2020-02-05 08:29] LABS: POC Glucose,Bedside > 600 (70-110)
[2020-02-05 08:29] LABS: POC Glucose,Bedside > 600 (70-110)
== END 2020-02-03 09:45 | disposition home or self-care (01) ==
LOC: ER 22:36 → 2ND 22:44
PROVIDERS: Admitting Provider Family Medicine; Emergency Provider Emergency Medicine; PCP Family Medicine; Visit Provider Family Medicine
DX: E11.65 Type 2 diabetes mellitus with hyperglycemia (principal); Z79.4 Long term (current) use of insulin; Z91.018 Allergy to other foods; Z91.128 Patient's intentional underdosing of medication regimen for other reason; Z72.0 Tobacco use; I10 Essential (primary) hypertension; K86.1 Other chronic pancreatitis; J44.9 Chronic obstructive pulmonary disease, unspecified; Z99.81 Dependence on supplemental oxygen; E87.1 Hypo-osmolality and hyponatremia; I25.2 Old myocardial infarction; I25.10 Atherosclerotic heart disease of native coronary artery without angina pectoris; D64.9 Anemia, unspecified; Z79.51 Long term (current) use of inhaled steroids; Z79.52 Long term (current) use of systemic steroids; Z79.890 Hormone replacement therapy; Z79.82 Long term (current) use of aspirin; Z79.899 Other long term (current) drug therapy; Z23 Encounter for immunization
CPT/HCPCS: G0008; 36415; 70450; 71045; 72125; 72170; 72220; 80048; 80053; 81001; 82150; 82803; 82962; 83690; 83735; 85025; 86328; 90686; 94760; 96365; 96366; 96375; 96376; 99284; G0378; J2405

== ENCOUNTER 2020-06-04 14:25 | Observation (INO) | payer MEDICARE, SELFPAY ==
--- NOTE | 2020-06-04 14:34 | CT_ITS ---
PROCEDURE: CT ABDOMEN PELVIS WO/W CON CLINICAL INDICATION: abdominal pain, chronic pancreatitis Upper abdominal pain worsening, unbearable COMPARISON: CT CT ABDOMEN PELVIS WO/W CON from 10/31/2018 TECHNIQUE: IV Contrast: 75ML Isovue 370 Oral Contrast None Axial images obtained with sagittal and coronal reformats. All CT scans at the facility use one or more dose reduction, viz: automated exposure control, ma/kV adjustment per patient size (including targeted exams where dose is matched to indication, i.e. head), or iterative reconstruction technique. FINDINGS: LOWER THORAX: COPD changes in the lung bases with a calcified granuloma in the left lower lobe. There are bilateral breast implants present. ABDOMEN & PELVIS: The liver and spleen and adrenal glands have an unremarkable appearance. There is a stable 5 mm cyst in the right hepatic lobe anteriorly. There is diffuse pancreatic coarse calcifications consistent with chronic pancreatitis. The gallbladder is distended with mild biliary dilatation. Numerous coarse calcifications are present in the head of the pancreas. Cannot exclude the possibility that 1 of these calcifications represents a common bile duct stone. Consider MRCP for further evaluation. Kidneys have an unremarkable appearance. There is a moderate amount of retained colonic feces in a redundant colon. No evidence of appendicitis. No evidence of diverticulitis. Prior hysterectomy. There is a 2 cm labial cyst on the left. IMPRESSION: 1. Chronic pancreatitis. 2. Mild distention of the gallbladder and common bile duct. Cannot exclude the possibility of a distal common duct stone. Consider MRCP for further evaluation. 3. Large amount stool within the redundant colon. Dictated by: Ceasar Francisco MD 06/05/2020 07:06 Ceasar Francisco MD in [facility] 06/05/2020 07:06
--- NOTE | 2020-06-04 15:45 | HMH.HP ---
*Admission Date: 06/04/20 <Cinthya Medina - 06/04/20 16:17> *Chief complaint: abdominal pain, weakness <Cinthya Medina 06/04/20 16:17> *History of present illness: Ms. Wilhelm is a 60-year-old female with a history of chronic pancreatitis and pancreatic pseudocyst, hypertension, COPD, coronary artery disease, and insulin-dependent diabetes who presented to the office today with severe upper abdominal pain radiating into her back. She states she has been very weak for the past few weeks. She has been having horrible leg pain with leg weakness and is having difficulty walking. She is followed by gastroenterology and was last seen by Snehal helton on 03/18/2020. She had labs completed in April and her CBC showed mild anemia, her glucose was elevated at 438, and her amylase and lipase were normal. She has been on Creon consistently and was previously on Xifaxan twice a day but it was stopped due to cost and her ammonia level got over 1000. When she was restarted on the medication, it went back down to normal. GI is trying to get Xifaxan approved for regular use as it seemed to help. She did have an ERCP by Dr. Mendez on 01/20/2020 and was found to have a smooth distal CBD stricture consistent with chronic pancreatitis status post dilatation, severe chronic pancreatitis, and a normal cholecystogram and cirrhosis. She was having some bloating with eating and was started on omeprazole by Snehal helton. She was also told to start on Metamucil and MiraLAX for constipation. At this time she will be admitted for IV fluids, pain control, and a CT of the abdomen and pelvis. <Cinthya Medina 06/04/20 16:17> [facility] History I have reviewed the patient's past medical history: Yes <Cinthya Medina 06/04/20 16:17> Medical History: Reports:: Arrhythmia, Chronic Obstructive Pulmonary Disease (COPD), Coronary Artery Disease, Home Oxygen, Hyperlipidemia, Hypertension, Lung Disease, Myocardial Infarction, Palpitations, Peripheral Vascular Disease Denies:: Cancer, Diabetes Mellitus Type 1, Diabetes Mellitus Type 2, Internal Pacemaker, MRSA, Seizures <Cinthya Medina 06/04/20 16:17> *Have you ever received a pneumonia vaccine?: No <Cinthya Medina 15/21 16:17> *Have you received a flu vaccine this season?: Yes <Cinthya Medina 06/04/20 16:17> Other Medical History: Reports: Anemia, Hormone Therapy, Liver Disease, Other (Chronic pancreatitis) <Cnithya Medina 06/04/20 16:17> Other Surgeries: Yes: Cardiac Catheterization, Colon Resection, Hernia Repair (Incarcerated hernia), Hysterectomy-Total, Plastic Surgery (Breast augmentation), Tubal Ligation, Other (EGD, ERCP). No: Pacemaker <Cinthya Medina 06/04/20 16:17> Amputation: No <Cinthya Medina 06/04/20 16:17> - *Social History Smoking Status: Current every day smoker <Cinthya Medina 06/04/20 16:17> Tobacco Type: cigarettes <Cinthya Medina 06/04/20 16:17> # Packs/Day (cigarettes): 1 <Cinthya Medina 06/04/20 16:17> #Yrs smoked (if former smoker): 40 <Cinthya Medina 06/04/20 16:17> Alcohol Intake: former <Cinthya Medina 06/04/20 16:17> Substance Use Type: denies use <Cinthya Medina 06/04/20 16:17> *Occupational Status:: disabled <Cinthya Medina 06/04/20 16:17> Housing: house <Cinthya Medina 06/04/20 16:17> Household Members: significant other <Cinthya Medina 06/04/20 16:17> *Travel in the last 8 weeks: None <Cinthya Medina 06/04/20 16:17> Family Hx:: Asthma, Coronary Artery Disease, Hyperlipidemia <Cinthya Medina 06/04/20 16:17> Review of Systems - Constitutional Reports fatigue, Reports malaise, Reports weakness, Denies fever(s) <Cinthya Medina 06/04/20 16:17> - Eyes Denies blurry vision, Denies double vision <Cinthya Medina 06/04/20 16:17> - ENT Denies nasal congestion, Denies sore throat <Cinthya Medina 06/04/20 16:17> - *Cardiovascular Reports shortness of breath, Denies chest pain <Cinthya Medina - 06/04/20 16:17> - *Respiratory Reports shortness of breath, D
[2020-06-04 15:57] VITALS: BP 155/92; PULSE 85; RESP 19; TEMP 36.8; O2SAT 98; BMI 13.4
[2020-06-04 16:15] LABS: Basophils # 0.1 K/mm3 (0-0.2); Basophils % 0.7 % (0.1-2.0); Eosinophils # 0.1 K/mm3 (0.0-0.4); Eosinophils % 1.6 % (0.1-12.0); Hematocrit 38.9 % (37.0-47.0); Hemoglobin 11.8 g/dL (12.2-16.2); Lymphocytes # 2.4 K/mm3 (0.7-4.5); Lymphocytes % 27.7 % (10-50); Mean Corpuscular HGB Conc 30.4 g/dL (31.8-35.4); Mean Corpuscular Hemoglobin 25.5 pg (27.0-31.2); Mean Corpuscular Volume 83.8 fl (81-99); Mean Platelet Volume 7.8 fl (7.4-10.4); Monocytes # 0.6 K/mm3 (0.1-1.0); Monocytes % 7.1 % (1.7-9.3); Neutrophils # 5.3 K/mm3 (1.8-7.8); Neutrophils % 62.9 % (37.0-80.0); Platelet Count 280 K/mm3 (142-424); Red Blood Count 4.64 M/mm3 (4.20-5.40); Red Cell Distribution Width 15.7 % (11.5-17.5); White Blood Count 8.5 K/mm3 (4.8-10.8)
[2020-06-04 16:20] LABS: Alanine Aminotransferase 26 U/L (12-78); Albumin Level 4.6 g/dl (3.5-5.0); Albumin/Globulin Ratio 1.4 (1.1-1.8); Alkaline Phosphatase 161 U/L (38-126); Amylase 32 U/L (30-110); Anion Gap 10.9 mEq/L (5-15); Aspartate Amino Transferase 32 U/L (14-36); Bilirubin,Total 0.4 mg/dl (0.2-1.3); Blood Urea Nitrogen 14 mg/dl (7-17); Calcium 10.1 mg/dl (8.4-10.2); Carbon Dioxide 33 mmol/L (22.0-30.0); Chloride 96 mmol/L (98-107); Creatinine Clearance Estimated 65 mL/min (50-200); Estimated Glomerular Filt Rate 126 ml/min (>60); GFR (African American) 152 ML/MIN (>60); Globulin 3.2 g/dL (1.3-3.2); Glucose 289 mg/dl (74-100); Potassium 3.9 mmoL/L (3.5-5.1); Sodium 136 mmol/L (136-145); Total Protein,Serum 7.8 g/dl (6.3-8.2)
[2020-06-04 16:24] LABS: Lipase < 10 U/L (23-300)
[2020-06-04 16:46] LABS: Ammonia < 9 umol/L (9-30)
[2020-06-04 17:39] LABS: Erythrocyte Sedimentation Rate 18 mm/hr (0-30)
[2020-06-04 17:54] LABS: C-Reactive Protein 2.9 mg/L (0-4)
[2020-06-04 20:00] VITALS: BP 111/72; PULSE 76; RESP 16; TEMP 36.8; O2SAT 99
--- NOTE | 2020-06-04 20:14 | PC.NURSE ---
SHE IS AOX4, ABLE TO MAKE NEEDS KNOWN TO STAFF, SHE HAS C/O PAIN SINCE ARRIVING TO FLOOR AND WAS MEDICATED WITH PRN MORPHINE X2 WITH GOOD EFFECTIVENESS, THOUGH SHE DOES STATE THAT IT WEARS OFF QUICKLY, SHE HAS DENIED N/V/D, NO BM NOTED SINCE ARRIVAL, BOWEL SOUNDS ARE DIMINISHED AND PRESENT X4. NO NEEDS AT THIS TOME, WILL CONTINUE TO MONITOR
[2020-06-05] VITALS (22 sets, daily range): BP systolic 89–190; BP diastolic 52–106; PULSE 71–90; RESP 14–19; TEMP 33.8–36.8; O2SAT 94–100; BMI 14.2; BMI 14.1
[2020-06-05 00:40] LABS: POC Glucose,Bedside 91 (70-110)
[2020-06-05 00:40] LABS: POC Glucose,Bedside 207 (70-110)
--- NOTE | 2020-06-05 06:26 | PC.NURSE ---
Addendum entered by Nell Rogers RN 06/05/20 06:42: Rechecked FSBS 60 at this time; patient is still asymptomatic; will continue to monitor. Original Note: Patient c/o pain in upper abdomen and legs; medication administered per orders; FSBS this AM [address] [employer] Juice repeated FSBS again at 0615 it was 46 gave 2nd orange juice, guy crackers, & peanut butter. Will repeat again
--- NOTE | 2020-06-05 07:28 | P.CONPHA_ITS ---
[facility] Pharmacy VTE Monitoring - Patient Demographics Admission date: 06/04/20 Report Date: 06/05/20 Time: 07:28 Allergies/Adverse Reactions: Patient Allergies cinnamon Allergy (Severe, Verified 01/20/20 13:46) TONGUE SWELL, NAUSEA acetaminophen Adverse Reaction (Unknown, Verified 01/20/20 13:46) LIVER ISSUE Height: 1.6 m Weight: 36.457 kg Patient Problems: Current Active Problems COPD (chronic obstructive pulmonary disease) (Chronic) Tobacco use disorder (Chronic) Abdominal pain (Acute) History of [place] (myocardial infarction) (Chronic) Pancreatic pseudocyst (Chronic) Chronic alcoholic pancreatitis (Chronic) IDDM (insulin dependent diabetes mellitus) (Chronic) Hypertension (Chronic) - VTE Risk Labs: VTE Related Lab Results Hgb 11.8 g/dL (12.2-16.2) L 06/04/20 16:00 Hct 38.9 % (37.0-47.0) 06/04/20 16:00 Plt Count 280 K/mm3 (142-424) 06/04/20 16:00 BUN 14 mg/dl (7-17) 06/04/20 16:00 Creatinine 0.50 mg/dl (0.52-1.04) L 06/04/20 16:00 Estimated Creat Clear 65 mL/min (50-200) 06/04/20 16:00 VTE Risk Level: Moderate Risk - Prophylaxis VTE Prophylaxis Ordered?: Yes Types of VTE Prophylaxis: TEDS Knee High Location of Applied Device: Bilateral Lower Extremeties
--- NOTE | 2020-06-05 08:24 | HMH.ACPN2 ---
<Cinthya Medina - Last Filed: 06/05/20 08:24> Internal Medicine - PN: Subj *Date: 06/05/20 *Time: 08:24 Interval history: Patient states she was up and down all night. She had diarrhea which she contributes to the contrast she had to drink for the CT scan. She still complains of upper abdominal pain which seems to be worse in the epigastric area in the right upper quadrant. She denies any vomiting. Exam Vital signs and Labs for Last 24 Hours: Temp Pulse Resp BP Pulse Ox 97.8 F 79 16 190/96 H 100 06/05/20 04:00 06/05/20 04:00 06/05/20 04:00 06/05/20 04:00 06/05/20 04:00 Laboratory Results - last 24 hr 06/04/20 16:00: WBC 8.5, RBC 4.64, Hgb 11.8 L, Hct 38.9, MCV 83.8, MCH 25.5 L, MCHC 30.4 L, RDW 15.7, Plt Count 280, MPV 7.8, Neut % (Auto) 62.9, Lymph % (Auto) 27.7, [place] % (Auto) 7.1, Eos % (Auto) 1.6, Baso % (Auto) 0.7, Neut # (Auto) 5.3, Lymph # (Auto) 2.4, [place] # (Auto) 0.6, Eos # (Auto) 0.1, Baso # (Auto) 0.1 06/04/20 16:00: Sodium 136, Potassium 3.9, Chloride 96 L, Carbon Dioxide 33 H, Anion Gap 10.9, BUN 14, Creatinine 0.50 L, Estimated Creat Clear 65, Estimated GFR 126, Est GFR ( Amer) 152, Glucose 289 H, Calcium 10.1, Total Bilirubin 0.4, AST 32, ALT 26, Alkaline Phosphatase 161 H, Total Protein 7.8 D, Albumin 4.6, Globulin 3.2, Albumin/Globulin Ratio 1.4, Amylase 32 06/04/20 16:00: Lipase < 10 L 06/04/20 16:00: ESR 18 06/04/20 16:00: C-Reactive Protein 2.9 06/04/20 16:35: Ammonia < 9 L 06/04/20 17:35: POC Glucose 207 H 06/04/20 20:15: POC Glucose 91 I & O for Last 24 hours: Intake & Output 06/02/20 06/03/20 06/04/20 06/05/20 11:59 11:59 11:59 11:59 Intake Total 610 / 610 Balance 610 / 610 Weight 80 lb 6 oz Microbiology Reports for the Last 24 Hours: Microbiology 06/04/20 16:00 Nasopharyngeal Coronavirus COVID-19 PCR - Final Radiology Reports for the Last 24 Hours: CT abdomen/pelvis 1. Chronic pancreatitis. 2. Mild distention of the gallbladder and common bile duct. Cannot exclude the possibility of a distal common duct stone. Consider MRCP for further evaluation. 3. Large amount stool within the redundant colon. - Constitutional no acute distress - *Routine Respiratory Exam Present: decreased breath sounds, rhonchi. Absent: rales - *Routine Cardiovascular Exam Present: RRR - *Routine Abdominal Exam Present: soft, normoactive bowel sounds, tenderness (epigastric area and RUQ with guarding) - *Routine Extremities Exam Absent: cyanosis, clubbing, edema - *Routine Skin Exam Present: warm. Absent: rash - *Routine Neurological Exam Present: alert, oriented X3 Assessment and Plan (1) Abdominal pain Status: Acute Category: Medical Code(s): R10.9 - Unspecified abdominal pain (2) COPD (chronic obstructive pulmonary disease) Status: Chronic Category: Medical Code(s): J44.9 - Chronic obstructive pulmonary disease, unspecified (3) Tobacco use disorder Status: Chronic Category: Medical Code(s): F17.200 - Nicotine dependence, unspecified, uncomplicated (4) Chronic alcoholic pancreatitis Status: Chronic Category: Medical Code(s): K86.0 - Alcohol-induced chronic pancreatitis (5) History of [place] (myocardial infarction) Status: Chronic Category: Medical Code(s): I25.2 - Old myocardial infarction (6) Hypertension Status: Chronic Qualifiers: Hypertension type: essential hypertension Qualified Code(s): I10 - Essential (primary) hypertension Category: Medical Code(s): I10 - Essential (primary) hypertension (7) IDDM (insulin dependent diabetes mellitus) Status: Chronic Category: Medical Code(s): E11.9 - Type 2 diabetes mellitus without complications; Z79.4 - senior care (current) use of insulin (8) Pancreatic pseudocyst Status: Chronic Category: Medical Code(s): K86.3 - Pseudocyst of pancreas (9) Common bile duct dilatation Status: Acute Category: Medical Code(s): K83.8 - Other
--- NOTE | 2020-06-05 09:48 | HMH.PHAINT ---
MEDICATION RECONCILIATION COMPLETED USING EXTERNAL FILL HISTORY AND PHYSICIAN OFFICE NOTE
[2020-06-05 10:22] LABS: POC Glucose,Bedside 60 (70-110)
[2020-06-05 10:22] LABS: POC Glucose,Bedside 52 (70-110)
--- NOTE | 2020-06-05 11:57 | PC.NURSE ---
Pt down for ERCP by wheelchair accompanied by OR staff @ 3140
--- NOTE | 2020-06-05 12:30 | FL_ITS ---
PROCEDURE: FL ERCP CLINICAL INDICATION: bile duct stone COMPARISON: CT CT ABDOMEN PELVIS WO/W CON from 06/04/2020 FINDINGS: Fluoroscopy time: 4 minutes and 5 seconds. Images submitted from the ERCP show dilated common hepatic and common bile duct with common hepatic duct approximately 12 mm and common bile duct approximately 7 mm. A balloon was inserted. No obvious common ducts stones were evident. There is a stricture of the distal aspect of the common bile duct. Post dilatation and sphincterotomy images shows no evidence of contrast extravasation. The gallbladder was not filled. IMPRESSION: Status post sphincterotomy and balloon dilatation of a stricture at the distal common bile duct with biliary dilatation Dictated by: Ceasar Francisco MD 06/12/2020 18:54 Ceasar Francisco MD in [place] 06/12/2020 18:54
--- NOTE | 2020-06-05 13:41 | P.PCN_ITS ---
[facility] Procedure Note Procedure Note:: ERCP procedure Report: Endoscopic retrograde cholangiopancreatography with biliary sphincterotomy and TTS balloon dilation/sphincteroplasty Endoscopist: Suleman Mendez II, MD Referring Physician: Siddharth Cotton MD/Cinthya Medina PA-C Date of Procedure: June 05, 2020 Equipment: Olympus 180 side viewing endoscope duodenoscope Sedation: MAC sedation Indication: Mrs. Wilhelm is a 60-year-old female with chronic alcoholic pancreatitis and alcoholic cirrhosis. She does have oxygen dependent COPD. She did restart drinking for a few months in 2019. She continues to smoke tobacco. She does have very severe scores calcific chronic pancreatitis. She did have an ERCP with mo in December 2019 that showed a distal CBD stricture with chronic pancreatitis. She does have acute upper abdominal pain. She was admitted and a CT scan of the abdomen did show the appearance of a distal CBD stone with mild distention of the gallbladder and biliary system. There was a large amount of stool in the colon. Procedure: Prior to the procedure, a history and physical exam was performed, and patient's medications and allergies were reviewed. The risks, benefits and alternatives of the sedation and procedure were discussed with the patient. All questions were answered and informed consent was obtained. The patient was brought to the fluoroscopic radiology room. Patient identification and proposed procedure were verified by the physician and the nurse. The patient was placed in a swimmer's position between left lateral decubitus and prone position and the scope was passed under direct vision. Throughout the procedure, the patient's blood pressure, pulse, and oxygen saturations were monitored continuously. The ERCP was accomplished without difficulty. The patient tolerated the procedure well. Findings: The side-viewing duodenoscope was passed directly into the upper esophagus and advanced to the second portion of the duodenum. There was duodenal deformity with a U-shaped stomach making it difficult to pass directly into the second portion of the duodenum. We did the case in her left lateral decubitus position. The common bile duct was selectively cannulated initially and the common bile duct was 10 to 11 mm. There was attenuation of the biliary system in the liver suggestive of hepatic fibrosis. There was stricturing of the distal 1.5 cm of common bile duct. Extension of the biliary sphincterotomy was performed. Next, an 8 mm dilating balloon was placed across the stricture and this was dilated from 7 to 8 mm with the TTS hydrostatic balloon. There was excellent drainage of bile. There was deformity of the distal common bile duct with evidence of stricturing from surrounding fibrosis. The pancreatic duct was not cannulated intentionally. Impression: 1. Distal common bile duct stricture from severe calcific chronic pancreatitis (stricturing of the intrapancreatic segment of the distal CBD) status post biliary sphincterotomy and TTS balloon dilation Plan: The patient does have severe chronic pancreatitis. This has resulted in the distal CBD stricture. She should improve with dilation and she was not jaundiced. She did have a mildly elevated alkaline phosphatase. She reports alcohol abstinence. Tobacco is a major risk factor for progression of chronic pancreatitis as well as primary pancreatic carcinoma arising within chronic pancreatitis. I would continue pancreatic digestive enzymes (Creon 36 3 capsules with each meal). She may require eventual [place] procedure (lateral pancreaticojejunostomy).
--- NOTE | 2020-06-05 15:34 | P.PN_ITS ---
[facility] Anesthesia Checklist - Patient Identification Patient Identification: Arm Band - Structural Data Admitted From: Home Planned Operative Procedure/s: ERCP Consent for Planned Operative Procedure(s) Verified: Yes Verified Documents: Surgical Consent, History and Physical - NPO Status Verified Time NPO: 00:00 - Additional verifications Anesthesia Reactions: No - Airway Assessment Dentition: Poor Dentition - Neurological Assessment Level of Consciousness: Awake, Alert - Anesthesia Plan Anesthesia Risk discussed: Yes Anesthesia Plan: Verified ASA Class: III Anesthesia Type: MAC [facility] History I have reviewed the patient's past medical history: Yes Medical History: Reports:: Arrhythmia, Chronic Obstructive Pulmonary Disease (COPD), Coronary Artery Disease, Home Oxygen, Hyperlipidemia, Hypertension, Lung Disease, Myocardial Infarction, Palpitations, Peripheral Vascular Disease Denies:: Cancer, Diabetes Mellitus Type 1, Diabetes Mellitus Type 2, Internal Pacemaker, MRSA, Seizures *Have you ever received a pneumonia vaccine?: No *Have you received a flu vaccine this season?: No Other Medical History: Reports: Anemia, Hormone Therapy, Liver Disease, Other (Chronic pancreatitis) Anesthesia experience/problems:: None Other Surgeries: Yes: Cardiac Catheterization, Colon Resection, Hernia Repair (Incarcerated hernia), Hysterectomy-Total, Plastic Surgery (Breast augmentation), Tubal Ligation, Other (EGD, ERCP). No: Pacemaker Amputation: No - *Social History Last grade of school completed: High school graduate Smoking Status: Current every day smoker Tobacco Type: cigarettes # Packs/Day (cigarettes): 1 #Yrs smoked (if former smoker): 40 Alcohol Intake: never Substance Use Type: denies use *Occupational Status:: unemployed Housing: house Household Members: significant other *Travel in the last 8 weeks: None Family Hx:: Asthma, Coronary Artery Disease, Hyperlipidemia
[2020-06-05 15:53] LABS: Microscopic, Urine URINE MICROSCOPIC (MICROSCOPIC)
[2020-06-05 15:54] LABS: Appearance,Urine SL CLOUDY (Clear); Bilirubin,Urine Negative (Negative); Blood, Urine Negative (Negative); Color,Urine YELLOW (Yellow); Glucose,Urine (UA) Negative (Negative); Ketones,Urine Negative (Negative); Leukocyte Esterase,Urine Negative (Negative); Nitrate,Urine Negative (Negative); Protein,Urine TRACE (Negative); Urobilinogen,Urine 0.2 EU/dl (0.2)
[2020-06-05 16:04] LABS: Bacteria,Urine 3+ /lpf; WBC,Urine Occasional #/hpf (0-3)
--- NOTE | 2020-06-05 16:12 | PC.NURSE ---
Addendum entered by Gayathri Gonzalez RN 06/05/20 18:49: See VS for rectal temps Q15min. Last temp taken @ 1820, noted to be 98.2. Bear Paw removed from pt. Pt sitting up in bed watching TV. AxO4, no needs @ this time. Call tristin w/in reach. Original Note: 1605 - temp 93.0 rectally, per protocol pt placed on bear paw and given warm blankets.
[2020-06-05 16:23] LABS: POC Glucose,Bedside 79 (70-110)
--- NOTE | 2020-06-05 18:50 | PC.NURSE ---
1624 - FSBS 42 Orders placed for stat blood glucose, blood drawn and sent to lab. 1630 - Spoke w/ Cinthya @ [facility] office, states to give pt 1 amp of D50 once and that she will place orders to change IVF. 1640 - 1 amp of D50 given @ this time. FSBS rechecked in 15 min and found to be 246.
--- NOTE | 2020-06-05 19:56 | PC.NURSE ---
RA SATS WERE 97%. TOOK PT OFF 2L NC
--- NOTE | 2020-06-05 19:58 | PC.NURSE ---
PT WEARS 2L NC AT HOME
[2020-06-05 21:17] LABS: POC Glucose,Bedside 218 (70-110)
[2020-06-06] VITALS: BP 130/86; PULSE 82; RESP 18; TEMP 36.8; O2SAT 99
[2020-06-06 04:00] VITALS: BP 156/89; PULSE 79; RESP 16; TEMP 36.9; O2SAT 99
--- NOTE | 2020-06-06 05:15 | PC.NURSE ---
Pt complained of pain several times throughout the shift. Gave Morphine 2 mg X 3 this shift. Pt resting comfortably with eyes closed after doses 2 and 3. VSS, Temp EDL and RR WDL. Also noted, pupils PERRLA, 3 mm in diameter. Patient in no acute distress, will continue to monitor for any acute changes.
[2020-06-06 05:41] VITALS: BMI 14.1
[2020-06-06 06:01] LABS: POC Glucose,Bedside 79 (70-110)
[2020-06-06 07:33] LABS: Chloride 100 mmol/L (98-107)
[2020-06-06 07:34] LABS: Potassium 3.7 mmoL/L (3.5-5.1); Sodium 133 mmol/L (136-145)
[2020-06-06 07:36] LABS: Alanine Aminotransferase 17 U/L (12-78); Aspartate Amino Transferase 29 U/L (14-36); Blood Urea Nitrogen 12 mg/dl (7-17); Creatinine Clearance Estimated 114 mL/min (50-200); Estimated Glomerular Filt Rate 227 ml/min (>60); GFR (African American) 275 ML/MIN (>60)
[2020-06-06 07:37] LABS: Albumin Level 3.2 g/dl (3.5-5.0); Albumin/Globulin Ratio 1.3 (1.1-1.8); Alkaline Phosphatase 113 U/L (38-126); Anion Gap 5.7 mEq/L (5-15); Bilirubin,Total 0.4 mg/dl (0.2-1.3); Carbon Dioxide 31 mmol/L (22.0-30.0); Globulin 2.5 g/dL (1.3-3.2); Glucose 72 mg/dl (74-100); Total Protein,Serum 5.7 g/dl (6.3-8.2)
[2020-06-06 07:38] LABS: Lipase < 10 U/L (23-300)
[2020-06-06 07:39] LABS: Calcium 8.8 mg/dl (8.4-10.2)
[2020-06-06 08:00] VITALS: BP 126/74; PULSE 83; RESP 18; TEMP 37.1; O2SAT 98
--- NOTE | 2020-06-06 08:58 | HMH.ACPN2 ---
Internal Medicine - PN: Subj *Date: 06/06/20 *Time: 08:58 Interval history: Results of the ERCP discussed with the patient this morning as she does not recall much discussion with Dr. Mendez yesterday. She continued to have some pain through the night but states she feels a little better this morning. Denies nausea. She feels hungry. Exam Vital signs and Labs for Last 24 Hours: Temp Pulse Resp BP Pulse Ox 98.5 F 79 16 156/89 H 99 06/06/20 04:00 06/06/20 04:00 06/06/20 04:00 06/06/20 04:00 06/06/20 04:00 Laboratory Results - last 24 hr 06/04/20 15:49: Urine Color Yellow, Urine Appearance Sl cloudy, Urine pH 8.0, Ur Specific [place] 1.020, Urine Protein Trace, Urine Glucose (UA) Negative, Urine Ketones Negative, Urine Blood Negative, Urine Nitrate Negative, Urine Bilirubin Negative, Urine Urobilinogen 0.2, Ur Leukocyte Esterase Negative, Urine WBC Occasional, Ur Squamous Epith Cells 3-5, Urine Bacteria 3+ 06/05/20 05:25: POC Glucose 52 L 06/05/20 06:39: POC Glucose 60 L 06/05/20 10:37: POC Glucose 79 06/05/20 16:40: Random Glucose 36 L* 06/05/20 21:03: POC Glucose 218 H 06/06/20 05:52: POC Glucose 79 06/06/20 07:05: Sodium 133 L, Potassium 3.7, Chloride 100, Carbon Dioxide 31 H, Anion Gap 5.7, BUN 12, Creatinine 0.30 L D, Estimated Creat Clear 114, Estimated GFR 227, Est GFR ( Amer) 275 D, Glucose 72 L, Calcium 8.8 D, Total Bilirubin 0.4, AST 29, ALT 17 D, Alkaline Phosphatase 113, Total Protein 5.7 L D, Albumin 3.2 L, Globulin 2.5, Albumin/Globulin Ratio 1.3, Lipase < 10 L I & O for Last 24 hours: Intake & Output 06/03/20 06/04/20 06/05/20 06/06/20 11:59 11:59 11:59 11:59 Intake Total 610 / 610 2154 / 2154 Output Total 300 / 300 Balance 610 / 610 1854 / 1854 Weight 80 lb 6 oz 80 lb Narrative: She is alert and oriented. No respiratory distress. Chest with coarse breath sounds but otherwise clear. Abdomen is nondistended. Bowel sounds are present but diminished. There is moderate epigastric and right upper quadrant tenderness. Extremities show no edema. Assessment and Plan (1) Abdominal pain Status: Acute Category: Medical Code(s): R10.9 - Unspecified abdominal pain (2) COPD (chronic obstructive pulmonary disease) Status: Chronic Category: Medical Code(s): J44.9 - Chronic obstructive pulmonary disease, unspecified (3) Tobacco use disorder Status: Chronic Category: Medical Code(s): F17.200 - Nicotine dependence, unspecified, uncomplicated (4) Chronic alcoholic pancreatitis Status: Chronic Category: Medical Code(s): K86.0 - Alcohol-induced chronic pancreatitis (5) History of CT (myocardial infarction) Status: Chronic Category: Medical Code(s): I25.2 - Old myocardial infarction (6) Hypertension Status: Chronic Qualifiers: Hypertension type: essential hypertension Qualified Code(s): I10 - Essential (primary) hypertension Category: Medical Code(s): I10 - Essential (primary) hypertension (7) IDDM (insulin dependent diabetes mellitus) Status: Chronic Category: Medical Code(s): E11.9 - Type 2 diabetes mellitus without complications; Z79.4 - detention (current) use of insulin (8) Pancreatic pseudocyst Status: Chronic Category: Medical Code(s): K86.3 - Pseudocyst of pancreas (9) Common bile duct stricture Status: Acute Category: Medical Code(s): K83.1 - Obstruction of bile duct (10) Status post endoscopic retrograde cholangiopancreatography Status: Acute Category: Surgical Code(s): Z98.890 - Other specified postprocedural states - Assessment and plan all Dx Assessment and Plan for all problems:: Liver function and lipase remain normal this morning. She is still requiring IV pain medication. Will advance diet today and if tolerated, possible discharge home tomorrow.
[2020-06-06 15:56] VITALS: BP 141/89; PULSE 90; RESP 17; TEMP 39.4; O2SAT 97
--- NOTE | 2020-06-06 16:59 | PC.NURSE ---
Pt has rested in bed most of this shift. Pt has c/o abdominal pain x3 this shift and has been medicated per MAR w/ favorable results upon reassessment. RUQ and RLQ remain tender to palpate, hypoactive bowel sounds noted in all quads. No BM noted this shift. Pt continues on 2 L NC w/ o2 sats >95%. Pt is a standby assist to and from the bathroom. Pt ambulates w/ steady gait and balance. Pt was febrile x1 this shift w/ a temp of 102.9. Pt was ordered PRN acetaminophen per MD Patterson. Upon reassessment, pt is now afebrile w/ a temp of 99.0. No other acute changes or complaints at this time.
--- NOTE | 2020-06-06 19:30 | PC.NURSE ---
Pt states that she does not get an allergic reaction to acetaminophen, her doctors have just advised her not to take it due to her liver function. MD Patterson made aware of acetaminophen on the allergy list, states it's ok, as long as her liver function is normal . Pt's AST, ALT, and total bili were all normal. Acetaminophen 650 mg order was changed to Acetaminophen 500 mg q6h PRN for fever.
[2020-06-06 20:00] VITALS: BP 129/79; PULSE 89; RESP 16; TEMP 37.3; O2SAT 96
[2020-06-06 21:23] LABS: POC Glucose,Bedside 360 (70-110)
[2020-06-07 04:00] VITALS: BP 155/74; PULSE 82; RESP 16; TEMP 37.2; O2SAT 99
[2020-06-07 05:03] LABS: POC Glucose,Bedside 238 (70-110)
[2020-06-07 05:27] VITALS: BMI 14.7
--- NOTE | 2020-06-07 05:49 | PC.NURSE ---
Patient called for pain medicine every 3 hours, however slept a majority of the shift. Patient still on NS running at 100 ml/hr. Patient advanced to a [place] diet, ate very little this shift. Will continue to monitor for any acute changes.
[2020-06-07 08:00] VITALS: BP 151/77; PULSE 86; RESP 17; TEMP 36.7; O2SAT 99
--- NOTE | 2020-06-07 09:25 | HMH.ACPN2 ---
Internal Medicine - PN: Subj *Date: 06/07/20 *Time: 09:25 Interval history: She continues to complain of abdominal pain and is requiring IV morphine about every 3 hours. Her pain today is epigastric and more in the left upper quadrant rather than right. States she had a small foamy bowel movement yesterday. She has been tolerating her diet but staff notes she does not eat much. She was noted with a one-time fever spike to 102 yesterday afternoon. No fever since then. Exam Vital signs and Labs for Last 24 Hours: Temp Pulse Resp BP Pulse Ox 98.1 F 86 17 151/77 H 99 06/07/20 08:00 06/07/20 08:00 06/07/20 08:00 06/07/20 08:00 06/07/20 08:00 Laboratory Results - last 24 hr 06/06/20 21:07: POC Glucose 360 H* 06/07/20 04:55: POC Glucose 238 H I & O for Last 24 hours: Intake & Output 06/04/20 06/05/20 06/06/20 06/07/20 11:59 11:59 11:59 11:59 Intake Total 610 / 610 2204 / 2204 2383 / 2383 Output Total 300 / 300 Balance 610 / 610 1904 / 1904 2383 / 2383 Weight 80 lb 6 oz 80 lb 83 lb 3 oz Microbiology Reports for the Last 24 Hours: Microbiology 06/04/20 15:49 Urine,Random Urine Culture - Preliminary NO GROWTH AFTER 24 HOURS Narrative: She is asleep when I enter the room. She arouses easily and is alert and oriented. Color is normal. Lungs are clear anteriorly. Abdomen is slightly distended with moderate tenderness all across the upper abdomen. Bowel sounds are present but diminished. Assessment and Plan (1) Abdominal pain Status: Acute Category: Medical Code(s): R10.9 - Unspecified abdominal pain (2) COPD (chronic obstructive pulmonary disease) Status: Chronic Category: Medical Code(s): J44.9 - Chronic obstructive pulmonary disease, unspecified (3) Tobacco use disorder Status: Chronic Category: Medical Code(s): F17.200 - Nicotine dependence, unspecified, uncomplicated (4) Chronic alcoholic pancreatitis Status: Chronic Category: Medical Code(s): K86.0 - Alcohol-induced chronic pancreatitis (5) History of [place] (myocardial infarction) Status: Chronic Category: Medical Code(s): I25.2 - Old myocardial infarction (6) Hypertension Status: Chronic Qualifiers: Hypertension type: essential hypertension Qualified Code(s): I10 - Essential (primary) hypertension Category: Medical Code(s): I10 - Essential (primary) hypertension (7) IDDM (insulin dependent diabetes mellitus) Status: Chronic Category: Medical Code(s): E11.9 - Type 2 diabetes mellitus without complications; Z79.4 - manager intermediate (current) use of insulin (8) Pancreatic pseudocyst Status: Chronic Category: Medical Code(s): K86.3 - Pseudocyst of pancreas (9) Common bile duct stricture Status: Acute Category: Medical Code(s): K83.1 - Obstruction of bile duct (10) Status post endoscopic retrograde cholangiopancreatography Status: Acute Category: Surgical Code(s): Z98.890 - Other specified postprocedural states (11) Constipation Status: Acute Category: Medical Code(s): K59.00 - Constipation, unspecified - Assessment and plan all Dx Assessment and Plan for all problems:: I think her pain now is related to constipation that was noted on her admission CT. She will get a dose of Dulcolax today. She is encouraged to move about the room and sit up in the chair more today. Etiology of the spurious temperature spike yesterday is unclear. She has had no fever since then. Her urine culture shows no growth. Repeat labs in the morning.
[2020-06-07 11:23] LABS: POC Glucose,Bedside 343 (70-110)
[2020-06-07 15:53] VITALS: BP 134/77; PULSE 83; RESP 19; TEMP 36.9; O2SAT 100
--- NOTE | 2020-06-07 16:21 | PC.NURSE ---
Pt has c/o pain x2 this shift and has been medicated per APR w/ favorable results upon reassessment. Pt states her pain is in her LUQ and is tender to palpate. Pt's appetite has been fair this shift. FSBS has been elevated- at 1100 it was 343 and she was given 10 units of insulin. Pt has been more awake this shift and has not slept as much as yesterday when this RN had her. No BM noted this shift, active bowel sounds in all 4 quads. No other acute changes or complaints at this time.
[2020-06-07 17:10] LABS: POC Glucose,Bedside 162 (70-110)
[2020-06-07 20:00] VITALS: BP 163/78; PULSE 80; PULSE 81; RESP 20; TEMP 36.8; O2SAT 99
[2020-06-07 21:02] LABS: POC Glucose,Bedside 442 (70-110)
[2020-06-08] VITALS: O2SAT 99
--- NOTE | 2020-06-08 00:22 | PC.NURSE ---
patient c/o pain 10/30 stating it seems as though the pain is either getting worse and not better or the medicine just isn't working as well. I am almost in tears it hurts so bad. Morphine administered as prescribed at this time. BP 173/89 HR 80 O2 98%. Will continue to monitor.
[2020-06-08 04:00] VITALS: BP 161/92; PULSE 75; RESP 16; TEMP 37; O2SAT 100
[2020-06-08 05:00] VITALS: BMI 14.8
--- NOTE | 2020-06-08 05:05 | PC.NURSE ---
patient still c/o pain scale 8/10 stating it just doesn't help as much as before or as long. BP 161/92 HR 75; will continue to monitor
[2020-06-08 05:39] LABS: POC Glucose,Bedside 222 (70-110)
[2020-06-08 06:36] LABS: Basophils % 0.6 % (0.1-2.0); Eosinophils # 0.2 K/mm3 (0.0-0.4); Eosinophils % 2.9 % (0.1-12.0); Hematocrit 32.7 % (37.0-47.0); Hemoglobin 10.3 g/dL (12.2-16.2); Lymphocytes # 1.3 K/mm3 (0.7-4.5); Lymphocytes % 22.2 % (10-50); Mean Corpuscular HGB Conc 31.6 g/dL (31.8-35.4); Mean Corpuscular Hemoglobin 26.4 pg (27.0-31.2); Mean Corpuscular Volume 83.6 fl (81-99); Mean Platelet Volume 8.5 fl (7.4-10.4); Monocytes # 0.5 K/mm3 (0.1-1.0); Monocytes % 9.4 % (1.7-9.3); Neutrophils # 3.7 K/mm3 (1.8-7.8); Neutrophils % 64.9 % (37.0-80.0); Platelet Count 186 K/mm3 (142-424); Red Blood Count 3.91 M/mm3 (4.20-5.40); Red Cell Distribution Width 15.9 % (11.5-17.5); White Blood Count 5.7 K/mm3 (4.8-10.8)
[2020-06-08 07:01] LABS: Chloride 100 mmol/L (98-107); Potassium 3.6 mmoL/L (3.5-5.1); Sodium 133 mmol/L (136-145)
[2020-06-08 07:04] LABS: Alanine Aminotransferase 29 U/L (12-78); Albumin Level 2.9 g/dl (3.5-5.0); Albumin/Globulin Ratio 1.2 (1.1-1.8); Alkaline Phosphatase 147 U/L (38-126); Anion Gap 4.6 mEq/L (5-15); Aspartate Amino Transferase 30 U/L (14-36); Bilirubin,Total 0.3 mg/dl (0.2-1.3); Blood Urea Nitrogen 5 mg/dl (7-17); Carbon Dioxide 32 mmol/L (22.0-30.0); Estimated Glomerular Filt Rate 227 ml/min (>60); GFR (African American) 275 ML/MIN (>60); Globulin 2.5 g/dL (1.3-3.2); Total Protein,Serum 5.4 g/dl (6.3-8.2)
[2020-06-08 07:05] LABS: Calcium 8.4 mg/dl (8.4-10.2); Glucose 212 mg/dl (74-100)
[2020-06-08 07:15] LABS: Creatinine Clearance Estimated 120 mL/min (50-200)
[2020-06-08 08:00] VITALS: BP 149/76; PULSE 81; RESP 16; TEMP 36.8; O2SAT 100
--- NOTE | 2020-06-08 08:16 | XR_ITS ---
PROCEDURE: XR ABDOMEN MIN 2V CLINICAL INDICATION: upper abdominal pain post ERCP COMPARISON: CT CT ABDOMEN PELVIS WO/W CON from 06/04/2020 RF FL ERCP from 06/05/2020 FINDINGS: No evidence of free air. Contained lucency is noted in the subdiaphragmatic region medially on the right and is felt to be related to a mildly distended bowel loop with an air-fluid level. There is a moderate amount of retained colonic feces. Diffuse pancreatic calcifications are noted consistent with chronic pancreatitis. Surgical clips/sutures noted in the right upper quadrant. IMPRESSION: No evidence of free air. Chronic pancreatitis. Constipation Dictated by: Ceasar Francisco MD 06/08/2020 13:59 Ceasar Francisco MD in [place] 06/08/2020 13:59
--- NOTE | 2020-06-08 09:25 | HMH.ACPN2 ---
<Oliva Kim - Last Filed: 06/08/20 09:25> Internal Medicine - PN: Subj *Date: 06/08/20 *Time: 09:25 Interval history: Patient continued to have severe abdominal pain requiring regular morphine administration. She has periodic nausea. Her bowels did move last night. She denies chest pain and shortness of breath. Laboratory data this morning shows a hemoglobin of 10.3 and hematocrit of 32.7 and white blood cell count of 5700. Blood chemistries show sodium of 133 and potassium of 3.6 renal function with a BUN of 5 and creatinine of 0.3. Exam Vital signs and Labs for Last 24 Hours: Temp Pulse Resp BP Pulse Ox 98.2 F 81 16 149/76 H 100 06/08/20 08:00 06/08/20 08:00 06/08/20 08:00 06/08/20 08:00 06/08/20 08:00 Laboratory Results - last 24 hr 06/07/20 11:11: POC Glucose 343 H* 06/07/20 16:56: POC Glucose 162 H 06/07/20 20:40: POC Glucose 442 H* 06/08/20 05:32: POC Glucose 222 H 06/08/20 06:14: WBC 5.7, RBC 3.91 L, Hgb 10.3 L, Hct 32.7 L, MCV 83.6, MCH 26.4 L, MCHC 31.6 L, RDW 15.9, Plt Count 186 D, MPV 8.5, Neut % (Auto) 64.9, Lymph % (Auto) 22.2, Hill % (Auto) 9.4 H, Eos % (Auto) 2.9, Baso % (Auto) 0.6, Neut # (Auto) 3.7, Lymph # (Auto) 1.3, Hill # (Auto) 0.5, Eos # (Auto) 0.2, Baso # (Auto) 0.0 06/08/20 06:14: Sodium 133 L, Potassium 3.6, Chloride 100, Carbon Dioxide 32 H, Anion Gap 4.6 L, BUN 5 L D, Creatinine 0.30 L, Estimated Creat Clear 120, Estimated GFR 227, Est GFR ( Amer) 275, Glucose 212 H, Calcium 8.4, Total Bilirubin 0.3, AST 30, ALT 29 D, Alkaline Phosphatase 147 H, Total Protein 5.4 L, Albumin 2.9 L, Globulin 2.5, Albumin/Globulin Ratio 1.2 I & O for Last 24 hours: Intake & Output 06/05/20 06/06/20 06/07/20 06/08/20 11:59 11:59 11:59 11:59 Intake Total 610 / 610 2204 / 2204 2383 / 2383 1160 / 1160 Output Total 300 / 300 Balance 610 / 610 1904 / 1904 2383 / 2383 1160 / 1160 Weight 80 lb 6 oz 80 lb 83 lb 3 oz 83 lb 14.4 oz Microbiology Reports for the Last 24 Hours: Microbiology 06/04/20 15:49 Urine,Random Urine Culture - Final NO GROWTH AFTER 48 HOURS - Constitutional no acute distress (He appears to be uncomfortable.) - *Routine Respiratory Exam Present: wheezes (Rare wheeze posteriorly.) - *Routine Cardiovascular Exam Present: RRR - *Routine Abdominal Exam Present: soft, normoactive bowel sounds, tenderness (In all upper quads.). Absent: distended - *Routine Extremities Exam Absent: edema, calf tenderness - *Routine Neurological Exam Present: alert, oriented X3 Assessment and Plan (1) Abdominal pain Status: Acute Category: Medical Code(s): R10.9 - Unspecified abdominal pain (2) COPD (chronic obstructive pulmonary disease) Status: Chronic Category: Medical Code(s): J44.9 - Chronic obstructive pulmonary disease, unspecified (3) Tobacco use disorder Status: Chronic Category: Medical Code(s): F17.200 - Nicotine dependence, unspecified, uncomplicated (4) Chronic alcoholic pancreatitis Status: Chronic Category: Medical Code(s): K86.0 - Alcohol-induced chronic pancreatitis (5) History of DE (myocardial infarction) Status: Chronic Category: Medical Code(s): I25.2 - Old myocardial infarction (6) Hypertension Status: Chronic Qualifiers: Hypertension type: essential hypertension Qualified Code(s): I10 - Essential (primary) hypertension Category: Medical Code(s): I10 - Essential (primary) hypertension (7) IDDM (insulin dependent diabetes mellitus) Status: Chronic Category: Medical Code(s): E11.9 - Type 2 diabetes mellitus without complications; Z79.4 - half-way (current) use of insulin (8) Pancreatic pseudocyst Status: Chronic Category: Medical Code(s): K86.3 - Pseudocyst of pancreas (9) Common bile duct stricture Status: Acute Category: Medical Code(s): K83.1 - Obstruction of bile duct (10) Status post endoscopic retrograde cholangiopancreatograp
--- NOTE | 2020-06-08 11:59 | HMH.CONS ---
*Admission Date: 06/04/20 *Reason for consult:: abdominal pain/chronic pancreatitis *History of present illness: This is a 60-year-old female who is well known to our office with alcoholic cirrhosis and chronic pancreatitis. She also has oxygen dependent COPD. She has been a long-term abuser of alcohol and tobacco. She had been on Creon 3 caps with meals and one with snacks consistently along with xifaxan for hepatic encephalopathy. She has struggled with consistent elevations in her liver enzymes including an alk phos that was near 300 and she underwent ERCP with Dr. Mendez in december 2019. He found a smooth distal CBD stricture consistent with chronic pancreatitis status post dilation, severe chronic pancreatitis, normal cholecystogram and cirrhosis. She is still smoking and he discussed her risk of developing pancreatic cancer. After that ERCP, she was doing well since she has been so strict with the Creon use and Xifaxan. She has stopped having chronic diarrhea since she has been on the Creon consistently. She presented to the ER few days ago with abdominal pain and mild elevation in her alk phos. Preprocedure it was 161. She had a CT scan 06/04/2020 that showed gallbladder distended with mild biliary dilatation and numerous coarse calcifications in the head of the pancreas consistent with chronic pancreatitis. There was a possible common bile duct stone. She also had a moderate amount of retained colonic feces on that CT scan. She did undergo ERCP with Dr. Mendez 06/05/2020. He found distal CBD stricture from severe calcific chronic pancreatitis status post biliary sphincterotomy and balloon dilation. The patient's lipase has been consistently below 10. Postprocedure her alk phos decreased to 113 and today it is at 147. Still a great improvement from where she was prior to her ERCP in December. We were consulted today as the patient has had a return of abdominal discomfort necessitating IV narcotic pain medication. Patient reports she has not been on Creon with any meals since admission here. She has been taking Xifaxan once every other day at home. Since admission the patient has had one very small bowel movement yesterday. She has not had a bowel movement today and 2 days ago she had some foam but no actual stool. She is quite distended with gas bloat and palpable stool on exam today. She is generally tender to palpation throughout her abdomen but worse left lower quadrant and left upper quadrant. She reports abdominal discomfort across her upper abdomen. [facility] History Medical History: Reports:: Arrhythmia, Chronic Obstructive Pulmonary Disease (COPD), Coronary Artery Disease, Home Oxygen, Hyperlipidemia, Hypertension, Lung Disease, Myocardial Infarction, Palpitations, Peripheral Vascular Disease Denies:: Cancer, Diabetes Mellitus Type 1, Diabetes Mellitus Type 2, Internal Pacemaker, MRSA, Seizures *Have you ever received a pneumonia vaccine?: No *Have you received a flu vaccine this season?: No Other Medical History: Reports: Anemia, Hormone Therapy, Liver Disease, Other (Chronic pancreatitis) Anesthesia experience/problems:: None Other Surgeries: Yes: Cardiac Catheterization, Colon Resection, Hernia Repair (Incarcerated hernia), Hysterectomy-Total, Plastic Surgery (Breast augmentation), Tubal Ligation, Other (EGD, ERCP). No: Pacemaker Amputation: No - *Social History Last grade of school completed: High school graduate Smoking Status: Current every day smoker Tobacco Type: cigarettes # Packs/Day (cigarettes): 1 #Yrs smoked (if former smoker): 40 Alcohol Intake: never Substance Use Type: denies use *Occupational Status:: unemployed Housing: house Household Members: significant other *Travel in the last 8 weeks: None Family Hx:: Asthma, Coronary Artery Disease, Hyperlipidemia Review of Systems - Constitutional Reports fatigue, Denies anorexia, Denies fever(s), Denies weakness - Eyes Denies blurry vision, Denies sensitivity to light -
[2020-06-08 12:08] LABS: POC Glucose,Bedside 476 (70-110)
--- NOTE | 2020-06-08 13:25 | DIET.NUTRFU ---
Addendum entered by Sonia Mcginnis 06/10/20 13:56: She continues to deny poor tolerance to meals, states her abdominal pain is somewhat improved. PO intakes remain about 50% + snacks. She has denied offers for protein/energy supplements. She likes the low fat diet and feels she can continue this as well as methods weight gain/maintenance at home. Pt has gained 9# t/o stay. Original Note: Pt states she tolerates her meals without issue but has ongoing abdominal pain which she feels is unchanged by food intake. She really dislikes the bland diet and requests a regular diet stating she avoids high fat foods and excessive seasoning already. Pt educated on importance fat restriction, diet altered from bland to low fat at this time, MD aware, will monitor tolerance and alter as indicated. Pt with severe protein calorie malnutrition with loss of 9% body weight in the past month. Diet education provided on MNT for severe chronic pancreatitis with Malnutrition, DM, and COPD.
[2020-06-08 16:00] VITALS: BP 131/65; PULSE 70; RESP 16; TEMP 36.6; O2SAT 100
--- NOTE | 2020-06-08 17:34 | PC.NURSE ---
late entry: spoke with Kenyetta Kim at approx 1200. pt fsbs was 476. order is to call md. per tsering give 15 units of lispro. also notified that pt is still on d5 1/2 ns @ 75. pt fsbs was low when npo and on ns alone. per kenyetta kim, change pt to 1/2 ns @ 75
[2020-06-08 20:00] VITALS: BP 159/91; PULSE 85; RESP 20; TEMP 36.6; O2SAT 94
[2020-06-09] VITALS (8 sets, daily range): BP systolic 131–151; BP diastolic 78–87; PULSE 74–85; RESP 16–20; TEMP 36.6–36.8; O2SAT 92–100; BMI 15.7
[2020-06-09 01:10] LABS: POC Glucose,Bedside 291 (70-110)
[2020-06-09 01:10] LABS: POC Glucose,Bedside 144 (70-110)
--- NOTE | 2020-06-09 03:59 | PC.NURSE ---
SHIFT SUMMARY PTS LUNG SOUNDS ARE CLEAR BUT DIMINISHED WITH SATS MAINTAINED 90% OR ABOVE ON 2LPM VIA NC, WITH A RATE RANGING FROM 16-20. PT IS ALERT AND ORIENTED X4. PT COMPLAINED OF PAIN TWICE DURING THIS SHIFT WHICH WAS RELIEVED WITH PAIN MEDS. PT IS ABLE TO GET UP AND GO TO THE RESTROOM UNASSISTED.
[2020-06-09 07:01] LABS: POC Glucose,Bedside 318 (70-110)
--- NOTE | 2020-06-09 08:29 | HMH.ACPN2 ---
<Oliva Kim - Last Filed: 06/09/20 08:29> Internal Medicine - PN: Subj *Date: 06/09/20 *Time: 08:29 Interval history: Patient thinks she is a little bit better. She slept at intervals during the night. She is eating better. Her bowels did move yesterday afternoon. She has ambulated in the room. She continues to have some abdominal discomfort although this is much less. She was seen by gastroenterology yesterday and notes appreciated. She was started on lactulose twice daily and back on her Creon. She still requires IV pain medicine. Blood sugars have improved with change of IV fluids. Exam Vital signs and Labs for Last 24 Hours: Temp Pulse Resp BP Pulse Ox 98.2 F 81 16 151/87 H 100 06/09/20 04:00 06/09/20 04:00 06/09/20 07:19 06/09/20 04:00 06/09/20 04:00 Laboratory Results - last 24 hr 06/08/20 11:59: POC Glucose 476 H* 06/08/20 17:15: POC Glucose 144 H 06/08/20 21:01: POC Glucose 291 H 06/09/20 06:53: POC Glucose 318 H* I & O for Last 24 hours: Intake & Output 06/06/20 06/07/20 06/08/20 06/09/20 11:59 11:59 11:59 11:59 Intake Total 2204 / 2204 2383 / 2383 1160 / 1160 2530 / 2530 Output Total 300 / 300 Balance 1904 / 1904 2383 / 2383 1160 / 1160 2530 / 2530 Weight 80 lb 83 lb 3 oz 83 lb 14.4 oz 88 lb 8 oz - Constitutional no acute distress Comments: Sitting up in the bed and appears comfortable. Has completed breakfast. - *Routine Respiratory Exam Present: diminished air movement (Posteriorly with scattered crackles) - *Routine Cardiovascular Exam Present: RRR - *Routine Abdominal Exam Present: soft, normoactive bowel sounds, tenderness (Left upper quadrant), distended - *Routine Extremities Exam Absent: edema, calf tenderness - *Routine Neurological Exam Present: alert, oriented X3 Assessment and Plan (1) Abdominal pain Status: Acute Category: Medical Code(s): R10.9 - Unspecified abdominal pain (2) COPD (chronic obstructive pulmonary disease) Status: Chronic Category: Medical Code(s): J44.9 - Chronic obstructive pulmonary disease, unspecified (3) Tobacco use disorder Status: Chronic Category: Medical Code(s): F17.200 - Nicotine dependence, unspecified, uncomplicated (4) Chronic alcoholic pancreatitis Status: Chronic Category: Medical Code(s): K86.0 - Alcohol-induced chronic pancreatitis (5) History of PR (myocardial infarction) Status: Chronic Category: Medical Code(s): I25.2 - Old myocardial infarction (6) Hypertension Status: Chronic Qualifiers: Hypertension type: essential hypertension Qualified Code(s): I10 - Essential (primary) hypertension Category: Medical Code(s): I10 - Essential (primary) hypertension (7) IDDM (insulin dependent diabetes mellitus) Status: Chronic Category: Medical Code(s): E11.9 - Type 2 diabetes mellitus without complications; Z79.4 - tank terminal gauger (current) use of insulin (8) Pancreatic pseudocyst Status: Chronic Category: Medical Code(s): K86.3 - Pseudocyst of pancreas (9) Common bile duct stricture Status: Acute Category: Medical Code(s): K83.1 - Obstruction of bile duct (10) Status post endoscopic retrograde cholangiopancreatography Status: Acute Category: Surgical Code(s): Z98.890 - Other specified postprocedural states (11) Constipation Status: Acute Category: Medical Code(s): K59.00 - Constipation, unspecified - Assessment and plan all Dx Assessment and Plan for all problems:: Patient seems to have improved although she continues to require IV pain medicine. Continue current treatment. Encouraged ambulation in the room. <Han Connell - Last Filed: 06/09/20 13:11> Internal Medicine - PN: Subj *Date: 06/09/20 *Time: 13:10 Exam Vital signs and Labs for Last 24 Hours: Temp Pulse Resp BP Pulse Ox 97.8 F 76 18 138/86 99 06/09/20 08:00 06/09/20 08:00 06/09/20 10:20 06/09/20 08:00 06/09/20 08
[2020-06-09 12:25] LABS: POC Glucose,Bedside 198 (70-110)
--- NOTE | 2020-06-09 17:00 | PC.NURSE ---
Remains on baseline 2L O2 per nasal cannula. Has c/o pain throughout shift, medicated per APR w/ fair results. Ambulates independently back and forth to bathroom w/o safety concerns. No c/o nausea, pt has at majority of her trays and has asked for snacks throughout day. No needs voiced. Call crow w/in reach.
[2020-06-09 18:49] LABS: POC Glucose,Bedside 300 (70-110)
[2020-06-09 22:22] LABS: POC Glucose,Bedside 183 (70-110)
[2020-06-10] VITALS (7 sets, daily range): BP systolic 108–137; BP diastolic 56–80; PULSE 81–87; RESP 16–21; TEMP 36.6–36.9; O2SAT 92–100; BMI 15.9
[2020-06-10 06:03] LABS: POC Glucose,Bedside 262 (70-110)
--- NOTE | 2020-06-10 06:03 | PC.NURSE ---
patient still c/o pain in upper abdomen. Administered pain medication per script. Shows no s/s of acute distress, call light within reach, bed at lowest level for safety, will continue to monitor.
[2020-06-10 07:02] LABS: Chloride 97 mmol/L (98-107); Sodium 132 mmol/L (136-145)
[2020-06-10 07:05] LABS: Alanine Aminotransferase 27 U/L (12-78); Albumin Level 2.8 g/dl (3.5-5.0); Albumin/Globulin Ratio 1.2 (1.1-1.8); Alkaline Phosphatase 173 U/L (38-126); Aspartate Amino Transferase 31 U/L (14-36); Bilirubin,Total 0.3 mg/dl (0.2-1.3); Blood Urea Nitrogen 9 mg/dl (7-17); Carbon Dioxide 34 mmol/L (22.0-30.0); Creatinine Clearance Estimated 96 mL/min (50-200); Estimated Glomerular Filt Rate 163 ml/min (>60); GFR (African American) 197 ML/MIN (>60); Globulin 2.3 g/dL (1.3-3.2); Total Protein,Serum 5.1 g/dl (6.3-8.2)
[2020-06-10 07:11] LABS: Glucose 241 mg/dl (74-100)
[2020-06-10 07:12] LABS: Calcium 8.4 mg/dl (8.4-10.2)
--- NOTE | 2020-06-10 08:01 | HMH.ACPN2 ---
<Cinthya Medina - Last Filed: 06/10/20 08:01> Internal Medicine - PN: Subj *Date: 06/10/20 *Time: 08:01 Interval history: Patient states she still having some left upper quadrant abdominal pain. She cannot understand why she is still constipated. She states she normally has loose stools at home but has been constipated since she has been hospitalized. She has been eating normally and moving around her room. She does Complain of some pain in both of her legs. She states she slept much better last night. Exam Vital signs and Labs for Last 24 Hours: Temp Pulse Resp BP Pulse Ox 98.2 F 82 16 134/80 100 06/10/20 07:42 06/10/20 07:42 06/10/20 07:42 06/10/20 07:42 06/10/20 07:42 Laboratory Results - last 24 hr 06/09/20 10:26: POC Glucose 198 H 06/09/20 16:48: POC Glucose 300 H 06/09/20 22:03: POC Glucose 183 H 06/10/20 05:45: POC Glucose 262 H 06/10/20 06:10: Sodium 132 L, Potassium 4.0, Chloride 97 L, Carbon Dioxide 34 H, Anion Gap 5.0, BUN 9 D, Creatinine 0.40 L D, Estimated Creat Clear 96, Estimated GFR 163, Est GFR ( Amer) 197 D, Glucose 241 H, Calcium 8.4, Total Bilirubin 0.3, AST 31, ALT 27, Alkaline Phosphatase 173 H, Total Protein 5.1 L, Albumin 2.8 L, Globulin 2.3, Albumin/Globulin Ratio 1.2 I & O for Last 24 hours: Intake & Output 06/07/20 06/08/20 06/09/20 06/10/20 11:59 11:59 11:59 11:59 Intake Total 2383 / 2383 1160 / 1160 2770 / 2770 580 / 580 Balance 2383 / 2383 1160 / 1160 2770 / 2770 580 / 580 Weight 83 lb 3 oz 83 lb 14.4 oz 88 lb 8 oz 90 lb 1 oz - Constitutional no acute distress - *Routine Respiratory Exam Present: CTA bilaterally - *Routine Cardiovascular Exam Present: RRR - *Routine Abdominal Exam Present: soft, normoactive bowel sounds, tenderness (LUQ), distended - *Routine Extremities Exam Absent: cyanosis, clubbing, edema - *Routine Skin Exam Present: warm. Absent: rash - *Routine Neurological Exam Present: alert, oriented X3 Assessment and Plan (1) Abdominal pain Status: Acute Category: Medical Code(s): R10.9 - Unspecified abdominal pain (2) COPD (chronic obstructive pulmonary disease) Status: Chronic Category: Medical Code(s): J44.9 - Chronic obstructive pulmonary disease, unspecified (3) Tobacco use disorder Status: Chronic Category: Medical Code(s): F17.200 - Nicotine dependence, unspecified, uncomplicated (4) Chronic alcoholic pancreatitis Status: Chronic Category: Medical Code(s): K86.0 - Alcohol-induced chronic pancreatitis (5) History of ME (myocardial infarction) Status: Chronic Category: Medical Code(s): I25.2 - Old myocardial infarction (6) Hypertension Status: Chronic Qualifiers: Hypertension type: essential hypertension Qualified Code(s): I10 - Essential (primary) hypertension Category: Medical Code(s): I10 - Essential (primary) hypertension (7) IDDM (insulin dependent diabetes mellitus) Status: Chronic Category: Medical Code(s): E11.9 - Type 2 diabetes mellitus without complications; Z79.4 - jail (current) use of insulin (8) Pancreatic pseudocyst Status: Chronic Category: Medical Code(s): K86.3 - Pseudocyst of pancreas (9) Common bile duct stricture Status: Acute Category: Medical Code(s): K83.1 - Obstruction of bile duct (10) Status post endoscopic retrograde cholangiopancreatography Status: Acute Category: Surgical Code(s): Z98.890 - Other specified postprocedural states (11) Constipation Status: Acute Category: Medical Code(s): K59.00 - Constipation, unspecified - Assessment and plan all Dx Assessment and Plan for all problems:: Patient was started on lactulose by GI along with her Creon. Will discuss further care with Dr. Connell. Will check a magnesium level as her legs are aching. <Han Connell - Last Filed: 06/10/20 12:04> Internal Medicine - PN: Subj *Date: 06/10/20 *Time: 10:31 Exam Vital signs and L
[2020-06-10 08:23] LABS: Magnesium 1.2 mg/dl (1.6-2.3)
[2020-06-10 12:07] LABS: POC Glucose,Bedside 310 (70-110)
--- NOTE | 2020-06-10 13:49 | PC.NURSE ---
Pt is alert and oriented x3. Lungs are clear, she remains on 2L NC with O2 sats measuring >95%. She had an episode where she became sob while ambulating from the bathroom. She requested her home inhaler. MD notified and albuterol inhaler ordered q6hr prn. She reported a dry nose, nasal saline requested and now available at bedside. Humidification also added to NC. Bowels sounds are active x4. Abdomen is tender and distended. She reports LUQ that has required prn pain meds around the clock (q2hr). She reports having a BM. Appetite has been good. Adequate relief noted on reassessment. Will continue to monitor.
--- NOTE | 2020-06-10 16:16 | PC.NURSE ---
Trash and dirty linens pulled
[2020-06-10 16:42] LABS: POC Glucose,Bedside 198 (70-110)
--- NOTE | 2020-06-10 18:31 | PC.NURSE ---
PT RA SATS WERE 90% PT PLACED BACK ON 2L NC
[2020-06-11 03:46] VITALS: BP 148/83; PULSE 92; RESP 20; TEMP 37.2; O2SAT 100
--- NOTE | 2020-06-11 03:50 | PC.NURSE ---
shift summary pts lung sounds are clear but diminished with sats maintained at 99% or above on 2LPM via NC, with a rate ranging from 20-23. pt is alert and oriented X4. pt complained of pain twice this shift that was relieved with pain meds. pt is independent in going to the restroom with clear yellow in color urine. pt denies any nausea, vomiting, or diarrhea.
[2020-06-11 05:00] VITALS: BMI 15.7
[2020-06-11 06:03] LABS: POC Glucose,Bedside 174 (70-110)
[2020-06-11 07:41] VITALS: BP 141/81; PULSE 85; RESP 19; TEMP 36.8; O2SAT 98
--- NOTE | 2020-06-11 08:05 | XR_ITS ---
PROCEDURE: XR ABDOMEN MIN 2V CLINICAL INDICATION: left side abdominal pain, constipation COMPARISON: CR XR ABDOMEN MIN 2V from 06/08/2020 FINDINGS: Upright and supine views of the abdomen are obtained showing a nonspecific bowel gas pattern. No intestinal obstruction or free air. There remains a mild amount of retained colonic feces but has improved since the previous exam. There are degenerative changes in the lumbar spine with diffuse vascular calcification and calcifications are chronic pancreatitis once again noted. IMPRESSION: Some improvement in the retained colonic feces Dictated by: Ceasar Francisco MD 06/11/2020 10:00 Ceasar Francisco MD in [facility] 06/11/2020 10:00
--- NOTE | 2020-06-11 08:37 | HMH.ACPN2 ---
<Cinthya Medina - Last Filed: 06/11/20 08:37> Internal Medicine - PN: Subj *Date: 06/11/20 *Time: 08:37 Interval history: Patient is still having left upper quadrant abdominal pain today. She states she is having bowel movements but they are very loose. She is likely having loose stool around a large amount of impacted stool in the colon. She is still requiring pain medication. She states she did sleep better last night and has been eating. Exam Vital signs and Labs for Last 24 Hours: Temp Pulse Resp BP Pulse Ox 98.2 F 85 19 141/81 H 98 06/11/20 07:41 06/11/20 07:41 06/11/20 07:41 06/11/20 07:41 06/11/20 07:41 Laboratory Results - last 24 hr 06/10/20 11:33: POC Glucose 310 H* 06/10/20 16:21: POC Glucose 198 H 06/11/20 05:48: POC Glucose 174 H I & O for Last 24 hours: Intake & Output 06/08/20 06/09/20 06/10/20 06/11/20 11:59 11:59 11:59 11:59 Intake Total 1160 / 1160 2770 / 2770 1864 / 1864 900 / 900 Balance 1160 / 1160 2770 / 2770 1864 / 1864 900 / 900 Weight 83 lb 14.4 oz 88 lb 8 oz 90 lb 1 oz 89 lb 3 oz - Constitutional no acute distress - *Routine Respiratory Exam Present: CTA bilaterally - *Routine Cardiovascular Exam Present: RRR - *Routine Abdominal Exam Present: soft, normoactive bowel sounds, tenderness (Left upper quadrant) - *Routine Extremities Exam Absent: cyanosis, clubbing, edema - *Routine Skin Exam Present: warm. Absent: rash - *Routine Neurological Exam Present: alert, oriented X3 Assessment and Plan (1) Abdominal pain Status: Acute Category: Medical Code(s): R10.9 - Unspecified abdominal pain (2) COPD (chronic obstructive pulmonary disease) Status: Chronic Category: Medical Code(s): J44.9 - Chronic obstructive pulmonary disease, unspecified (3) Tobacco use disorder Status: Chronic Category: Medical Code(s): F17.200 - Nicotine dependence, unspecified, uncomplicated (4) Chronic alcoholic pancreatitis Status: Chronic Category: Medical Code(s): K86.0 - Alcohol-induced chronic pancreatitis (5) History of DE (myocardial infarction) Status: Chronic Category: Medical Code(s): I25.2 - Old myocardial infarction (6) Hypertension Status: Chronic Qualifiers: Hypertension type: essential hypertension Qualified Code(s): I10 - Essential (primary) hypertension Category: Medical Code(s): I10 - Essential (primary) hypertension (7) IDDM (insulin dependent diabetes mellitus) Status: Chronic Category: Medical Code(s): E11.9 - Type 2 diabetes mellitus without complications; Z79.4 - senior living (current) use of insulin (8) Pancreatic pseudocyst Status: Chronic Category: Medical Code(s): K86.3 - Pseudocyst of pancreas (9) Common bile duct stricture Status: Acute Category: Medical Code(s): K83.1 - Obstruction of bile duct (10) Status post endoscopic retrograde cholangiopancreatography Status: Acute Category: Surgical Code(s): Z98.890 - Other specified postprocedural states (11) Constipation Status: Acute Category: Medical Code(s): K59.00 - Constipation, unspecified - Assessment and plan all Dx Assessment and Plan for all problems:: We will get abdominal x-rays today as her abdominal pain has persisted. She will take some MiraLAX this morning. <Han Connell - Last Filed: 06/12/20 12:41> Internal Medicine - PN: Subj *Date: 06/12/20 *Time: 12:40 Exam Vital signs and Labs for Last 24 Hours: Temp Pulse Resp BP Pulse Ox 97.9 F 82 20 161/92 H 100 06/12/20 07:48 06/12/20 08:00 06/12/20 08:00 06/12/20 07:48 06/12/20 08:00 Laboratory Results - last 24 hr 06/11/20 17:02: POC Glucose 356 H* 06/11/20 19:50: POC Glucose 272 H 06/12/20 05:49: POC Glucose 208 H I & O for Last 24 hours: Intake & Output 06/10/20 06/11/20 06/12/20 06/13/20 11:59 11:59 11:59 11:59 Intake Total 1864 / 1864 900 / 900 725 / 725 Balance 1864 / 1864 900 / 900 7
[2020-06-11 11:25] LABS: POC Glucose,Bedside 377 (70-110)
[2020-06-11 15:57] VITALS: BP 136/75; PULSE 76; RESP 16; TEMP 36.9; O2SAT 99
[2020-06-11 18:03] LABS: POC Glucose,Bedside 356 (70-110)
--- NOTE | 2020-06-11 18:05 | PC.NURSE ---
Pt is alert and oriented x4. She has complained of abdominal pain that's been treated w/prn meds. Appetite has been good. Pt has snacked on rice krispie treats and baked potato chips. Glucose has been elevated in the mid 300's on checks. Insulin administered per sliding scale. Pt aware that snacking is elevating glucose levels. She is independent and able to voice needs. O2 sats were 88 on RA. Pt placed back on 2L NC. No other concerns at this time. Will continue to monitor.
[2020-06-11 18:09] VITALS: O2SAT 96
--- NOTE | 2020-06-11 18:10 | PC.NURSE ---
RA SATS 88%. RETURN PT BACK TO 2L N/C
[2020-06-11 19:56] LABS: POC Glucose,Bedside 272 (70-110)
[2020-06-11 20:00] VITALS: BP 145/84; PULSE 92; RESP 21; TEMP 36.9; O2SAT 98
--- NOTE | 2020-06-12 03:36 | PC.NURSE ---
Pt A&O x4 and has slept well through the night. Pt has c/o abd discomfort, Toradol given x1 with desired effects. Lungs CTA, on 2L NC. Pt appetite has been improved, pt ate snacks this shift. Pt ambulates independently to BR. VSS, call light in reach, no concerns at this time.
[2020-06-12 04:00] VITALS: BP 184/91; PULSE 82; RESP 17; TEMP 36.7; O2SAT 100
[2020-06-12 04:54] VITALS: BMI 15.7
[2020-06-12 06:11] LABS: POC Glucose,Bedside 208 (70-110)
[2020-06-12 07:48] VITALS: BP 161/92; PULSE 82; RESP 20; TEMP 36.6; O2SAT 100
[2020-06-12 08:00] VITALS: PULSE 82; RESP 20; O2SAT 100
--- NOTE | 2020-06-12 08:31 | HMH.ACPN2 ---
<Cinthya Medina - Last Filed: 06/12/20 08:31> Internal Medicine - PN: Subj *Date: 06/12/20 *Time: 08:31 Interval history: Patient states she is feeling better this morning. She has less abdominal pain and has had numerous bowel movements. Her abdomen is not as distended. She has been able to eat and sleep. She states her legs are still hurting. Exam Vital signs and Labs for Last 24 Hours: Temp Pulse Resp BP Pulse Ox 97.9 F 82 20 161/92 H 100 06/12/20 07:48 06/12/20 07:48 06/12/20 07:48 06/12/20 07:48 06/12/20 07:48 Laboratory Results - last 24 hr 06/11/20 11:17: POC Glucose 377 H* 06/11/20 17:02: POC Glucose 356 H* 06/11/20 19:50: POC Glucose 272 H 06/12/20 05:49: POC Glucose 208 H I & O for Last 24 hours: Intake & Output 06/09/20 06/10/20 06/11/20 06/12/20 11:59 11:59 11:59 11:59 Intake Total 2770 / 2770 1864 / 1864 900 / 900 365 / 365 Balance 2770 / 2770 1864 / 1864 900 / 900 365 / 365 Weight 88 lb 8 oz 90 lb 1 oz 89 lb 3 oz 88 lb 8 oz - Constitutional no acute distress - *Routine Respiratory Exam Present: decreased breath sounds, CTA bilaterally - *Routine Cardiovascular Exam Present: RRR - *Routine Abdominal Exam Present: soft, normoactive bowel sounds, tenderness (less tenderness in the LUQ). Absent: distended - *Routine Extremities Exam Absent: cyanosis, clubbing, edema - *Routine Skin Exam Present: warm. Absent: rash - *Routine Neurological Exam Present: alert, oriented X3 Assessment and Plan (1) Abdominal pain Status: Acute Category: Medical Code(s): R10.9 - Unspecified abdominal pain (2) COPD (chronic obstructive pulmonary disease) Status: Chronic Category: Medical Code(s): J44.9 - Chronic obstructive pulmonary disease, unspecified (3) Tobacco use disorder Status: Chronic Category: Medical Code(s): F17.200 - Nicotine dependence, unspecified, uncomplicated (4) Chronic alcoholic pancreatitis Status: Chronic Category: Medical Code(s): K86.0 - Alcohol-induced chronic pancreatitis (5) History of GA (myocardial infarction) Status: Chronic Category: Medical Code(s): I25.2 - Old myocardial infarction (6) Hypertension Status: Chronic Qualifiers: Hypertension type: essential hypertension Qualified Code(s): I10 - Essential (primary) hypertension Category: Medical Code(s): I10 - Essential (primary) hypertension (7) IDDM (insulin dependent diabetes mellitus) Status: Chronic Category: Medical Code(s): E11.9 - Type 2 diabetes mellitus without complications; Z79.4 - yarn tester (current) use of insulin (8) Pancreatic pseudocyst Status: Chronic Category: Medical Code(s): K86.3 - Pseudocyst of pancreas (9) Common bile duct stricture Status: Acute Category: Medical Code(s): K83.1 - Obstruction of bile duct (10) Status post endoscopic retrograde cholangiopancreatography Status: Acute Category: Surgical Code(s): Z98.890 - Other specified postprocedural states (11) Constipation Status: Acute Category: Medical Code(s): K59.00 - Constipation, unspecified - Assessment and plan all Dx Assessment and Plan for all problems:: Patient's x-ray showed less retained colonic feces. Her pain has improved and she is stable to be discharged home. <Han Connell - Last Filed: 06/12/20 12:42> Internal Medicine - PN: Subj *Date: 06/12/20 *Time: 12:41 Exam Vital signs and Labs for Last 24 Hours: Temp Pulse Resp BP Pulse Ox 97.9 F 82 20 161/92 H 100 06/12/20 07:48 06/12/20 08:00 06/12/20 08:00 06/12/20 07:48 06/12/20 08:00 Laboratory Results - last 24 hr 06/11/20 17:02: POC Glucose 356 H* 06/11/20 19:50: POC Glucose 272 H 06/12/20 05:49: POC Glucose 208 H I & O for Last 24 hours: Intake & Output 06/10/20 06/11/20 06/12/20 06/13/20 11:59 11:59 11:59 11:59 Intake Total 1864 / 1864 900 / 900 725 / 725 Balance 186 / 186 900 / 900 725 / 725 Weigh
--- NOTE | 2020-06-12 09:33 | HMH.PHAINT ---
DISCHARGE COUNSELING COMPLETED.
--- NOTE | 2020-06-19 11:18 | HMH.DCSUM ---
General - General Admission date:: 06/04/20 <Han Connell - 07/03/20 08:48> 06/04/20 <Cinthya Medina - 06/19/20 11:26> Discharge date: 06/12/20 <Cinthya Medina - 06/19/20 11:26> HPI HPI: Ms. Wilhelm is a 60-year-old female with a history of chronic pancreatitis and pancreatic pseudocyst, hypertension, COPD, coronary artery disease, and insulin-dependent diabetes who presented to the office today with severe upper abdominal pain radiating into her back. She states she has been very weak for the past few weeks. She has been having horrible leg pain with leg weakness and is having difficulty walking. She is followed by gastroenterology and was last seen by Snehal helton on 03/18/2020. She had labs completed in April and her CBC showed mild anemia, her glucose was elevated at 438, and her amylase and lipase were normal. She has been on Creon consistently and was previously on Xifaxan twice a day but it was stopped due to cost and her ammonia level got over 1000. When she was restarted on the medication, it went back down to normal. GI is trying to get Xifaxan approved for regular use as it seemed to help. She did have an ERCP by Dr. Mendez on 01/20/2020 and was found to have a smooth distal CBD stricture consistent with chronic pancreatitis status post dilatation, severe chronic pancreatitis, and a normal cholecystogram and cirrhosis. She was having some bloating with eating and was started on omeprazole by Snehal helton. She was also told to start on Metamucil and MiraLAX for constipation. At this time she will be admitted for IV fluids, pain control, and a CT of the abdomen and pelvis. <Cinthya Medina - 06/19/20 11:26> Hospital Course Hospital Course: The patient's abdominal and pelvic CT showed chronic pancreatitis and mild distention of the gallbladder and common bile duct. The radiologist could not exclude the possibility of a distal common duct stone and recommended an MRCP. There is also a large amount of stool within the redundant colon. The patient was admitted and started on pain control and IV fluids. She did have some diarrhea after drinking the contrast for her CT scan. Dr. Mendez was consulted due to the common bile duct stone. He saw the patient on 06/05/2020 and performed an ERCP with biliary sphincterotomy and TTS balloon dilatation/sphincteroplasty. He felt she had a distal common bile duct stricture from her severe chronic pancreatitis. He recommended she continue Creon and continue to follow with their office. The patient continued to have pain even after her ERCP. She was able to eat and her diet was advanced. She had an abdominal x-ray on 06/08/2020 showing constipation. She was requiring morphine about every 3 hours. It was felt her pain was now related to her constipation, therefore she was given some Dulcolax. She continued to require pain medication and her pain medicine was changed to Dilaudid as the morphine did not seem to be helping. GI was consulted again. She was seen by Snehal helton. She felt the patient's pain was of multiple etiologies. She had not been on her Creon since admission and she recommended this be restarted. She had not been taking her Xifaxan at home and struggled with chronic constipation, therefore she started her on lactulose twice daily. She felt the patient may need repeat dilation of her common bile duct stricture periodically but she did not think her abdominal pain was related to her recent ERCP. the patient continued with constipation and abdominal pain and MiraLAX was added as well. She finally had numerous stools and her pain improved. A repeat x-ray showed improved constipation. Her legs did hurt and her magnesium level was found to be low, therefore she was started on magnesium. She was stable to be discharged home and will follow up with Dr. Connell in the office. <Cinthya Medina - 06/20/20 23:33> Objective Vital signs: Temp Pulse Resp BP Pul
[2020-06-25 12:10] LABS: Glucose,Random 36 mg/dL (74-100)
== END 2020-06-12 09:30 | disposition home or self-care (01) ==
PROVIDERS: Internal Medicine Gastroenterology; Admitting Provider Family Medicine; PCP Physician Assistant; Visit Provider Family Medicine
PROC: (CPT 43264; principal; 2020-06-05 12:30)
DX: K86.3 Pseudocyst of pancreas (principal); K83.1 Obstruction of bile duct; K86.0 Alcohol-induced chronic pancreatitis; E11.9 Type 2 diabetes mellitus without complications; Z79.4 Long term (current) use of insulin; J44.9 Chronic obstructive pulmonary disease, unspecified; Z99.81 Dependence on supplemental oxygen; I25.10 Atherosclerotic heart disease of native coronary artery without angina pectoris; Z72.0 Tobacco use; Z79.890 Hormone replacement therapy; Z79.899 Other long term (current) drug therapy; Z79.51 Long term (current) use of inhaled steroids; Z79.82 Long term (current) use of aspirin
CPT/HCPCS: 43264; G0379; 36415; 74019; 74178; 74330; 80053; 81001; 82140; 82150; 82947; 82962; 83690; 83735; 85025; 85651; 86140; 87086; 94761; C1726; G0378; J2405; Q9967; U0003

== ENCOUNTER → 2020-06-15 15:31 | Outpatient (POV) | payer MEDICARE, SELFPAY | PROVIDERS: Visit Provider Nurse Practitioner Family | DX: Z00.00 Encounter for general adult medical examination without abnormal findings (principal) ==

== ENCOUNTER → 2020-10-14 10:20 | Outpatient (CLI) | payer MEDICARE, SELFPAY ==
[2020-10-14 10:53] LABS: Basophils # 0.1 K/mm3 (0-0.2); Basophils % 0.9 % (0.1-2.0); Eosinophils # 0.2 K/mm3 (0.0-0.4); Hemoglobin 11.5 g/dL (12.2-16.2); Lymphocytes # 1.7 K/mm3 (0.7-4.5); Mean Corpuscular HGB Conc 30.3 g/dL (31.8-35.4); Mean Corpuscular Hemoglobin 28.1 pg (27.0-31.2); Mean Corpuscular Volume 92.7 fl (81-99); Mean Platelet Volume 8.3 fl (7.4-10.4); Monocytes # 0.4 K/mm3 (0.1-1.0); Platelet Count 267 K/mm3 (142-424); Red Cell Distribution Width 14.6 % (11.5-17.5); White Blood Count 7.3 K/mm3 (4.8-10.8)
[2020-10-14 11:01] LABS: Ammonia < 9 umol/L (9-30)
[2020-10-14 11:04] LABS: Prothrombin Time 10.8 seconds (10.1-12.5)
[2020-10-14 11:07] LABS: INR 0.91 (0.9-1.1)
[2020-10-14 11:43] LABS: Chloride 95 mmol/L (98-107); Sodium 133 mmol/L (136-145)
[2020-10-14 11:46] LABS: Alanine Aminotransferase 30 U/L (12-78); Alkaline Phosphatase 193 U/L (38-126); Aspartate Amino Transferase 35 U/L (14-36); Bilirubin,Total 0.2 mg/dl (0.2-1.3); Blood Urea Nitrogen 15 mg/dl (7-17); Carbon Dioxide 30 mmol/L (22.0-30.0); Estimated Glomerular Filt Rate 163 ml/min (>60); GFR (African American) 197 ML/MIN (>60); Iron 46 ug/dL (37-170)
[2020-10-14 11:47] LABS: Albumin/Globulin Ratio 1.6 (1.1-1.8); Calcium 9.4 mg/dl (8.4-10.2); Globulin 2.5 g/dL (1.3-3.2); Total Protein,Serum 6.5 g/dl (6.3-8.2)
[2020-10-14 11:56] LABS: Total Iron Binding Capacity 408 ug/dL (265-497)
[2020-10-14 12:22] LABS: Ferritin 9.09 ng/ml (11.1-264)
[2020-10-14 13:06] LABS: Glucose 486 mg/dl (74-100)
[2020-10-15 08:30] LABS: AFP, Tumor Marker 2.1 ng/mL (0.0-8.3)
== END ==
PROVIDERS: Visit Provider Nurse Practitioner Family
DX: K70.30 Alcoholic cirrhosis of liver without ascites (principal); K86.1 Other chronic pancreatitis; K86.81 Exocrine pancreatic insufficiency; K72.90 Hepatic failure, unspecified without coma; R63.4 Abnormal weight loss; R14.0 Abdominal distension (gaseous); K59.00 Constipation, unspecified; F17.290 Nicotine dependence, other tobacco product, uncomplicated
CPT/HCPCS: 36415; 80053; 82105; 82140; 82728; 83540; 83550; 85025; 85610

== ENCOUNTER → 2020-11-18 13:53 | Outpatient (CLI) | payer MEDICARE, SELFPAY ==
[2020-11-18 14:21] LABS: Basophils # 0.1 K/mm3 (0-0.2); Basophils % 0.7 % (0.1-2.0); Eosinophils # 0.2 K/mm3 (0.0-0.4); Eosinophils % 2.4 % (0.1-12.0); Hematocrit 36.6 % (37.0-47.0); Hemoglobin 10.6 g/dL (12.2-16.2); Lymphocytes # 2.1 K/mm3 (0.7-4.5); Lymphocytes % 27.5 % (10-50); Mean Corpuscular HGB Conc 29.1 g/dL (31.8-35.4); Mean Corpuscular Hemoglobin 27.8 pg (27.0-31.2); Mean Corpuscular Volume 95.5 fl (81-99); Mean Platelet Volume 7.6 fl (7.4-10.4); Monocytes # 0.4 K/mm3 (0.1-1.0); Monocytes % 5.7 % (1.7-9.3); Neutrophils # 4.9 K/mm3 (1.8-7.8); Neutrophils % 63.7 % (37.0-80.0); Platelet Count 298 K/mm3 (142-424); Red Blood Count 3.83 M/mm3 (4.20-5.40); Red Cell Distribution Width 13.2 % (11.5-17.5); White Blood Count 7.7 K/mm3 (4.8-10.8)
[2020-11-18 14:28] LABS: INR 0.94 (0.9-1.1)
[2020-11-18 14:43] LABS: Ammonia < 9 umol/L (9-30)
[2020-11-18 15:02] LABS: Chloride 90 mmol/L (98-107); Sodium 126 mmol/L (136-145)
[2020-11-18 15:04] LABS: Blood Urea Nitrogen 8 mg/dl (7-17); Estimated Glomerular Filt Rate 227 ml/min (>60); GFR (African American) 275 ML/MIN (>60)
[2020-11-18 15:05] LABS: Alanine Aminotransferase 44 U/L (12-78); Albumin Level 3.6 g/dl (3.5-5.0); Albumin/Globulin Ratio 1.6 (1.1-1.8); Alkaline Phosphatase 203 U/L (38-126); Aspartate Amino Transferase 43 U/L (14-36); Calcium 9.2 mg/dl (8.4-10.2); Carbon Dioxide 30 mmol/L (22.0-30.0); Globulin 2.2 g/dL (1.3-3.2); Iron 113 ug/dL (37-170); Total Protein,Serum 5.8 g/dl (6.3-8.2)
[2020-11-18 15:14] LABS: Total Iron Binding Capacity 390 ug/dL (265-497)
[2020-11-18 15:19] LABS: Bilirubin,Total < 0.1 mg/dl (0.2-1.3)
[2020-11-18 15:21] LABS: Glucose 687 mg/dl (74-100)
[2020-11-18 15:40] LABS: Ferritin 11.9 ng/ml (11.1-264)
== END ==
PROVIDERS: PCP Physician Assistant; Visit Provider Nurse Practitioner Family
DX: R10.13 Epigastric pain (principal); K70.30 Alcoholic cirrhosis of liver without ascites; K86.1 Other chronic pancreatitis; K86.81 Exocrine pancreatic insufficiency
CPT/HCPCS: 36415; 80053; 82105; 82140; 82728; 83540; 83550; 85025; 85610

== ENCOUNTER → 2020-11-19 09:03 | Outpatient (CLI) | payer MEDICARE, SELFPAY ==
--- NOTE | 2020-11-19 09:10 | CT_ITS ---
PROCEDURE: CT ABDOMEN PELVIS W CON CLINICAL INDICATION: EPIGASTRIC PAIN History of pancreatitis COMPARISON: CT ABDPELW CT ABD PELVIS W/ CONTRAST from 10/31/[address] abdomen pelvis w con from 12/18/[address] ABDOMEN PELVIS WO/W CON from 06/04/2020 TECHNIQUE: IV Contrast: 75ML Isovue 370 Oral Contrast None Axial images obtained with sagittal and coronal reformats. All CT scans at the facility use one or more dose reduction, viz: automated exposure control, ma/kV adjustment per patient size (including targeted exams where dose is matched to indication, i.e. head), or iterative reconstruction technique. FINDINGS: LOWER THORAX: COPD ABDOMEN & PELVIS: There is enlarged right hepatic lobe however, the left hepatic lobe is small with overall liver volume probably within normal limits. The right hepatic lobe inferiorly extends below the level of the iliac crest. This is not significantly changed. The spleen and adrenal glands have an unremarkable appearance. There is diffuse coarse calcification of the pancreas consistent with chronic pancreatitis. There is asymmetric thickening of the posterior aspect of the body of the stomach which was described previously on 12/18/2017 CT scan. Please correlate with upper endoscopy as well as endoscopic ultrasound as a neoplastic process is a consideration. This thickening extends along the posterior and inferior aspect of the body and gastric antrum. The portal vein is prominent measuring up to 1.8 cm. No evidence portal vein or superior mesenteric vein thrombosis. Mild narrowing noted at the ostium of the celiac artery and superior mesenteric artery. No obvious renal or ureteral calculi. No hydronephrosis. No intestinal obstruction or free air. On the most inferior image in the left pelvic region there is thickened area of bowel which may be due to the sigmoid colon incompletely imaged. IMPRESSION: 1. Chronic pancreatitis. 2. There is asymmetric thickening of the posterior aspect of the body of the stomach probably not significantly changed compared to 12/18/2017 CT scan. Please correlate with upper endoscopy as well as endoscopic ultrasound as a neoplastic process is a consideration. This thickening extends along the posterior and inferior aspect of the body and gastric antrum 3. Thickening incompletely image bowel loop in the right pelvic region which may represent thickened sigmoid colon Dictated by: Ceasar Francisco MD 11/20/2020 09:45 Ceasar Francisco MD in [place] 11/20/2020 09:45
--- NOTE | 2020-11-19 09:15 | XR_ITS ---
PROCEDURE: XR CHEST 2V CLINICAL HISTORY: URI COMPARISON: CT CTAC CTA-CHEST from 10/20/2016 CR XR CHEST 2V from 02/07/2019 CR XR CHEST 2V from 06/19/2019 CR XR CHEST AP from 02/01/2020 FINDINGS: The cardiomediastinal silhouette and pulmonary vascularity are within normal limits. COPD changes with hyperexpansion and eventration of the hemidiaphragms. No consolidation or suspicious nodule. Bilateral breast implants call some attenuation of the overlying lung deal. No acute bony abnormalities. IMPRESSION: COPD. No change with no acute finding. Dictated by: Ceasar Francisco MD 11/19/2020 12:32 Ceasar Francisco MD in [place] 11/19/2020 12:32
== END ==
PROVIDERS: PCP Physician Assistant; Visit Provider Physician Assistant
DX: R10.13 Epigastric pain (principal); J06.9 Acute upper respiratory infection, unspecified
CPT/HCPCS: 71046; 74177; Q9967

== ENCOUNTER → 2020-12-22 13:18 | Outpatient (CLI) | payer MEDICARE, SELFPAY | PROVIDERS: PCP Family Medicine; Visit Provider Nurse Practitioner | DX: Z11.52 Encounter for screening for COVID-19 (principal) | CPT/HCPCS: C9803; U0003; U0005 ==

== ENCOUNTER → 2021-01-20 09:08 | Outpatient (CLI) | payer MEDICARE, SELFPAY | PROVIDERS: PCP Radiology Diagnostic Radiology; Visit Provider Nurse Practitioner | DX: U07.1 COVID-19 (principal) | CPT/HCPCS: C9803; U0003; U0005 ==

== ENCOUNTER 2021-01-21 12:34 | Emergency (ER) | payer MEDICARE, SELFPAY ==
[2021-01-21] VITALS (10 sets, daily range): BP systolic 106–169; BP diastolic 73–92; PULSE 78–88; RESP 18–34; TEMP 37.1–37.6; O2SAT 90–98; BMI 12.7
--- NOTE | 2021-01-21 12:43 | XR_ITS ---
PROCEDURE: XR CHEST PORTABLE CLINICAL HISTORY: +covid, sob COMPARISON: CT CTAC CTA-CHEST from 10/20/2016 CR XR CHEST 2V from 06/19/2019 CR XR CHEST AP from 02/01/2020 CR XR CHEST 2V from 11/19/2020 FINDINGS: The cardiomediastinal silhouette and pulmonary vascularity are within normal limits. Bilateral breast implants somewhat obscure the overlying lung detail in the mid aspect of the hemithorax. COPD changes. No lobar consolidation or collapse. IMPRESSION: No acute findings. Dictated by: Ceasar Francisco MD 01/21/2021 13:35 Ceasar Francisco MD in [place] 01/21/2021 13:35
--- NOTE | 2021-01-21 13:32 | HMH.EDGENADL ---
ED Disposition Clinical Impression: Bronchitis due to COVID-19 virus Disposition: Home, Self-Care Condition on Discharge: Good Instructions: DI for Chronic Bronchitis Referrals: Han Connell MD [Primary Care Provider] - - Critical Care Critical Care Time: No Attestation: On 01/21/21, the high probability of a clinically significant, sudden or life threatening deterioration of the following system(s) required my full and direct attention, intervention and personal management. The time I documented below is in addition to time spent performing reported procedures but includes the following listed in this critical care notation. Medical Decision Making - Medical Records Medical records reviewed: Yes: I reviewed the patient's medical records. - Damien Inquiry Pt receiving controlled substance: No Vital Signs: 01/21/21 12:34 01/21/21 13:08 01/21/21 13:50 Temperature 99.6 F Temperature Source Oral Pulse Rate 82 82 Pulse Rate [Radial] 78 Respiratory Rate 34 H 22 Blood Pressure 129/74 116/77 Blood Pressure [Right Arm] 106/73 L Blood Pressure Mean [Right Arm] 84 Blood Pressure Position Sitting Blood Pressure Position [Right Arm] Sitting 02 Sat by Pulse Oximetry 98 92 L 93 L Oxygen Delivery Method Nasal Cannula Nasal Cannula Nasal Cannula Oxygen Flow Rate (LPM) 2 2 2 01/21/21 14:00 01/21/21 14:15 01/21/21 14:30 Temperature Temperature Source Pulse Rate 79 79 83 Pulse Rate [Radial] Respiratory Rate 20 20 20 Blood Pressure 126/87 144/87 H 142/89 H Blood Pressure [Right Arm] Blood Pressure Mean [Right Arm] Blood Pressure Position Sitting Sitting Blood Pressure Position [Right Arm] 02 Sat by Pulse Oximetry 94 L 94 L 94 L Oxygen Delivery Method Nasal Cannula Nasal Cannula Nasal Cannula Oxygen Flow Rate (LPM) 2 2 2 01/21/21 14:45 01/21/21 15:00 01/21/21 15:15 Temperature Temperature Source Pulse Rate 85 83 88 Pulse Rate [Radial] Respiratory Rate 20 20 Blood Pressure 134/86 135/83 128/77 Blood Pressure [Right Arm] Blood Pressure Mean [Right Arm] Blood Pressure Position Sitting Sitting Blood Pressure Position [Right Arm] 02 Sat by Pulse Oximetry 95 95 96 Oxygen Delivery Method Nasal Cannula Nasal Cannula Nasal Cannula Oxygen Flow Rate (LPM) 2 2 2 - Lab Data Lab Results 01/21/21 13:40: WBC 6.3, RBC 4.35, Hgb 12.0 L, Hct 36.8 L, MCV 84.5, MCH 27.6, MCHC 32.7, RDW 14.9, Plt Count 201, MPV 8.7, Neut % (Auto) 71.0, Lymph % (Auto) 17.8, Fisher % (Auto) 9.5 H, Eos % (Auto) 0.8, Baso % (Auto) 1.0, Neut # (Auto) 4.5, Lymph # (Auto) 1.1, Fisher # (Auto) 0.6, Eos # (Auto) 0.1, Baso # (Auto) 0.1 01/21/21 13:40: Sodium 126 L, Potassium 4.1, Chloride 86 L, Carbon Dioxide 32 H, Anion Gap 12.1, BUN 22 H, Creatinine 0.50 L, Estimated Creat Clear 63, Estimated GFR 126, Est GFR ( Amer) 152, Glucose 287 H, Calcium 8.5, Total Bilirubin 0.1 L, AST 42 H, ALT 20, Alkaline Phosphatase 143 H, Total Protein 6.6, Albumin 4.1, Globulin 2.5, Albumin/Globulin Ratio 1.6 Result diagrams: 01/21/21 13:40 01/21/21 13:40 Orders (Tests/Meds): ED MEDICATIONS Generic Name Dose Route Start Last Admin Trade Name Freq PRN Reason Stop Dose Admin Diphenhydramine HCl 25 mg 01/21/21 13:00 Diphenhydramine 50mg/Ml Vial IV 01/21/21 16:00 ONCE PRN INFUSION REACTION Hydrocortisone Sodium Succinate 100 mg 01/21/21 13:00 Hydrocortisone Sod Succinate 100mg Vial IV 01/21/21 16:00 ONCE PRN INFUSION REACTION Sodium Chloride 1,000 mls @ 100 mls/hr 01/21/21 13:00 Sod Chlor 0.9% 1000ml Bag IV 01/21/21 16:00 .Q10H PRN INFUSION REACTION Loratadine 10 mg 01/21/21 13:00 Loratadine 10mg Tablet PO 01/21/21 16:00 ONCE PRN INFUSION REACTION Discontinued Medications Generic Name Dose Route Start Last Admin Trade Name Freq PRN Reason Stop Dose Admin Dexamethasone Sodium Phosphate 10 mg 01/21/21 12:45 01/21/21 1
--- NOTE | 2021-01-21 13:35 | PC.NURSE ---
Called lab and requested someone stick pt for blood due to her being a difficult stick
[2021-01-21 13:54] LABS: Chloride 86 mmol/L (98-107); Sodium 126 mmol/L (136-145)
[2021-01-21 13:55] LABS: Potassium 4.1 mmoL/L (3.5-5.1)
[2021-01-21 13:57] LABS: Alanine Aminotransferase 20 U/L (12-78); Albumin Level 4.1 g/dl (3.5-5.0); Albumin/Globulin Ratio 1.6 (1.1-1.8); Alkaline Phosphatase 143 U/L (38-126); Anion Gap 12.1 mEq/L (5-15); Aspartate Amino Transferase 42 U/L (14-36); Blood Urea Nitrogen 22 mg/dl (7-17); Carbon Dioxide 32 mmol/L (22.0-30.0); Creatinine Clearance Estimated 63 mL/min (50-200); Estimated Glomerular Filt Rate 126 ml/min (>60); GFR (African American) 152 ML/MIN (>60); Globulin 2.5 g/dL (1.3-3.2); Total Protein,Serum 6.6 g/dl (6.3-8.2)
[2021-01-21 13:58] LABS: Basophils # 0.1 K/mm3 (0-0.2); Calcium 8.5 mg/dl (8.4-10.2); Eosinophils # 0.1 K/mm3 (0.0-0.4); Eosinophils % 0.8 % (0.1-12.0); Glucose 287 mg/dl (74-100); Hematocrit 36.8 % (37.0-47.0); Lymphocytes # 1.1 K/mm3 (0.7-4.5); Lymphocytes % 17.8 % (10-50); Mean Corpuscular HGB Conc 32.7 g/dL (31.8-35.4); Mean Corpuscular Hemoglobin 27.6 pg (27.0-31.2); Mean Corpuscular Volume 84.5 fl (81-99); Mean Platelet Volume 8.7 fl (7.4-10.4); Monocytes # 0.6 K/mm3 (0.1-1.0); Monocytes % 9.5 % (1.7-9.3); Neutrophils # 4.5 K/mm3 (1.8-7.8); Platelet Count 201 K/mm3 (142-424); Red Blood Count 4.35 M/mm3 (4.20-5.40); Red Cell Distribution Width 14.9 % (11.5-17.5); White Blood Count 6.3 K/mm3 (4.8-10.8)
[2021-01-21 13:59] LABS: Bilirubin,Total 0.1 mg/dl (0.2-1.3)
== END 2021-01-21 16:10 | disposition home or self-care (01) ==
PROVIDERS: Emergency Provider Emergency Medicine; PCP Family Medicine
DX: J44.1 Chronic obstructive pulmonary disease with (acute) exacerbation (principal); J20.9 Acute bronchitis, unspecified; U07.1 COVID-19; I25.10 Atherosclerotic heart disease of native coronary artery without angina pectoris; I10 Essential (primary) hypertension; F17.210 Nicotine dependence, cigarettes, uncomplicated; E78.5 Hyperlipidemia, unspecified; Z79.899 Other long term (current) drug therapy; Z99.81 Dependence on supplemental oxygen
CPT/HCPCS: 36415; 71045; 80053; 85025; 96365; 96367; 96375; 99283

== ENCOUNTER → 2021-03-05 12:30 | Outpatient (CLI) | payer MEDICARE, SELFPAY ==
--- NOTE | 2021-03-05 12:44 | XR_ITS ---
FINAL REPORT CLINICAL HISTORY: COVID TESTING, cough, lung pain, smoker COMPARISON: January 21, 2021 and November 19, 2020 FINDINGS: SINGLE VIEW CHEST. The heart is normal in size. The mediastinum is unremarkable. The lungs are hyperinflated which is consistent with COPD. There is mild scarring/fibrosis. There is no pneumothorax. IMPRESSION: Mild scarring/fibrosis. Lungs are hyperinflated, consistent with COPD. Reviewed, Interpreted and Dictated by Isacc Puente III, MD Transcribed by Anna Poole Authenticated by Isacc Puente III, MD on 03/05/2021 02:04:41 PM [facility]
[2021-03-05 13:41] LABS: Adenovirus,PCR Not Detected (NotDetected); Bordetella Pertussis Not Detected (NotDetected); Chlamydophila Pneumoniae, PCR Not Detected (NotDetected); Coronavirus 229E Not Detected (NotDetected); Coronavirus NL63 Not Detected (NotDetected); Coronavirus OC43 Not Detected (NotDetected); Coronovirus HKU1,PCR Not Detected (NotDetected); Human Metapneumovirus Not Detected (NotDetected); Influenza A, PCR Not Detected (NotDetected); Influenza AH1, 2009 Not Detected (NotDetected); Influenza AH1, PCR Not Detected (NotDetected); Influenza AH3,PCR Not Detected (NotDetected); Influenza B, PCR Not Detected (NotDetected); Mycoplasma Pneumoniae, PCR Not Detected (NotDetected); Parainfluenza 1, PCR Not Detected (NotDetected); Parainfluenza 2, PCR Not Detected (NotDetected); Parainfluenza 3, PCR Not Detected (NotDetected); Parainfluenza 4, PCR Not Detected (NotDetected); Respiratory Syncytial Virus Not Detected (NotDetected); Rhinovirus/Enterovirus Not Detected (NotDetected)
[2021-03-05 14:14] LABS: Alanine Aminotransferase 24 U/L (12-78); Albumin Level 4.1 g/dl (3.5-5.0); Albumin/Globulin Ratio 1.8 (1.1-1.8); Alkaline Phosphatase 201 U/L (38-126); Aspartate Amino Transferase 33 U/L (14-36); Bilirubin,Total 0.3 mg/dl (0.2-1.3); Blood Urea Nitrogen 9 mg/dl (7-17); Calcium 9.2 mg/dl (8.4-10.2); Carbon Dioxide 32 mmol/L (22.0-30.0); Chloride 92 mmol/L (98-107); Estimated Glomerular Filt Rate 227 ml/min (>60); GFR (African American) 275 ML/MIN (>60); Globulin 2.3 g/dL (1.3-3.2); Magnesium 1.5 mg/dl (1.6-2.3); Sodium 130 mmol/L (136-145); Total Protein,Serum 6.4 g/dl (6.3-8.2)
[2021-03-05 14:26] LABS: Basophils # 0.1 K/mm3 (0-0.2); Basophils % 1.1 % (0.1-2.0); Eosinophils # 0.1 K/mm3 (0.0-0.4); Eosinophils % 1.3 % (0.1-12.0); Hematocrit 35.9 % (37.0-47.0); Hemoglobin 10.9 g/dL (12.2-16.2); Lymphocytes # 1.9 K/mm3 (0.7-4.5); Lymphocytes % 24.3 % (10-50); Mean Corpuscular HGB Conc 30.4 g/dL (31.8-35.4); Mean Corpuscular Hemoglobin 27.4 pg (27.0-31.2); Mean Corpuscular Volume 90.4 fl (81-99); Mean Platelet Volume 9.2 fl (7.4-10.4); Monocytes # 0.5 K/mm3 (0.1-1.0); Monocytes % 5.7 % (1.7-9.3); Neutrophils # 5.3 K/mm3 (1.8-7.8); Neutrophils % 67.6 % (37.0-80.0); Platelet Count 364 K/mm3 (142-424); Red Blood Count 3.97 M/mm3 (4.20-5.40); Red Cell Distribution Width 15.7 % (11.5-17.5); White Blood Count 7.8 K/mm3 (4.8-10.8)
[2021-03-05 14:29] LABS: Glucose 497 mg/dl (74-100)
[2021-03-05 14:44] LABS: Thyroid Stimulating Hormone 1.32 uIU/mL (0.465-4.68)
[2021-03-05 15:31] LABS: Coronavirus 19, PCR Detected (NotDetected)
== END ==
PROVIDERS: PCP Family Medicine; Visit Provider Physician Assistant
DX: U07.1 COVID-19 (principal); R05.9 Cough, unspecified; E11.9 Type 2 diabetes mellitus without complications; Z79.4 Long term (current) use of insulin; Z79.899 Other long term (current) drug therapy
CPT/HCPCS: 36415; 71045; 80053; 83735; 84443; 85025; 85378; 87581; 87632; 87798; C9803; U0003; U0005

== ENCOUNTER → 2021-04-29 08:58 | Outpatient (CLI) | payer MEDICARE, SELFPAY ==
--- NOTE | 2021-04-29 09:01 | US_ITS ---
FINAL REPORT CLINICAL HISTORY: PANCREATITIS,WEIGHT LOSS,ABD PAIN FINDINGS: Sonographic images of the right upper quadrant were obtained. The pancreas is partially obscured and appears somewhat atrophic. The liver has an unremarkable appearance with no focal hepatic abnormality. The gallbladder wall is borderline thickened measuring 3 mm. There are multiple thickened folds within the gallbladder. There is some sludge in the gallbladder with no well-defined gallstones. There is no evidence of biliary ductal dilatation.The common duct measures 5 mm. Limited images of the right kidney are unremarkable. Retained stomach contents are noted despite being NPO for 15 hours. This may represent gastric outlet obstruction. IMPRESSION: Retained stomach contents despite being NPO for 15 hours, may represent gastric outlet obstruction. Multiple thickened folds within the gallbladder. Gallbladder wall is borderline thickened. Sludge in the gallbladder without well-defined gallstones. Partially obscured pancreas appears somewhat atrophic. If indicated, these findings could be further evaluated with a CT with contrast. Reviewed, Interpreted and Dictated by Isacc Puente III, MD Transcribed by Anna Poole Authenticated by Isacc Puente III, MD on 04/29/2021 11:19:16 AM [facility]
== END ==
PROVIDERS: PCP Nurse Practitioner Family; Visit Provider Nurse Practitioner Family
DX: R10.11 Right upper quadrant pain (principal); R10.12 Left upper quadrant pain; K70.30 Alcoholic cirrhosis of liver without ascites; K86.1 Other chronic pancreatitis; K86.81 Exocrine pancreatic insufficiency; K72.90 Hepatic failure, unspecified without coma; R63.4 Abnormal weight loss; F17.290 Nicotine dependence, other tobacco product, uncomplicated
CPT/HCPCS: 76705

== ENCOUNTER → 2021-06-02 09:24 | Outpatient (CLI) | payer MEDICARE, SELFPAY ==
[2021-06-02 09:58] LABS: Basophils # 0.1 K/mm3 (0-0.2); Eosinophils # 0.1 K/mm3 (0.0-0.4); Eosinophils % 1.3 % (0.1-12.0); Hematocrit 32.4 % (37.0-47.0); Hemoglobin 9.9 g/dL (12.2-16.2); Lymphocytes # 1.4 K/mm3 (0.7-4.5); Lymphocytes % 27.3 % (10-50); Mean Corpuscular HGB Conc 30.6 g/dL (31.8-35.4); Mean Corpuscular Hemoglobin 27.6 pg (27.0-31.2); Mean Corpuscular Volume 90.1 fl (81-99); Mean Platelet Volume 8.7 fl (7.4-10.4); Monocytes # 0.4 K/mm3 (0.1-1.0); Monocytes % 7.2 % (1.7-9.3); Neutrophils # 3.1 K/mm3 (1.8-7.8); Neutrophils % 62.2 % (37.0-80.0); Platelet Count 262 K/mm3 (142-424); Red Cell Distribution Width 14.7 % (11.5-17.5)
[2021-06-02 10:03] LABS: Ammonia < 9 umol/L (9-30)
[2021-06-02 10:12] LABS: INR 0.97 (0.9-1.1)
[2021-06-02 10:19] LABS: Alanine Aminotransferase 39 U/L (12-78); Albumin Level 3.5 g/dl (3.5-5.0); Albumin/Globulin Ratio 1.8 (1.1-1.8); Alkaline Phosphatase 299 U/L (38-126); Anion Gap 8.4 mEq/L (5-15); Aspartate Amino Transferase 47 U/L (14-36); Bilirubin,Total 0.4 mg/dl (0.2-1.3); Blood Urea Nitrogen 7 mg/dl (7-17); Calcium 8.4 mg/dl (8.4-10.2); Carbon Dioxide 29 mmol/L (22.0-30.0); Chloride 94 mmol/L (98-107); Estimated Glomerular Filt Rate 226 ml/min (>60); GFR (African American) 274 ML/MIN (>60); Potassium 4.4 mmoL/L (3.5-5.1); Sodium 127 mmol/L (136-145); Total Protein,Serum 5.5 g/dl (6.3-8.2)
[2021-06-02 11:11] LABS: Iron 37 ug/dL (37-170)
[2021-06-02 11:17] LABS: Glucose 624 mg/dl (74-100)
[2021-06-02 11:20] LABS: Total Iron Binding Capacity 403 ug/dL (265-497)
[2021-06-02 11:47] LABS: Ferritin 11.6 ng/ml (11.1-264)
[2021-06-03 08:18] LABS: AFP, Tumor Marker 2.1 ng/mL (0.0-9.2)
[2021-06-05 10:58] LABS: Creatine Kinase 39 U/L (30-135)
[2021-06-05 11:04] LABS: C-Reactive Protein 1.2 mg/L (0-4)
[2021-06-05 11:30] LABS: Thyroid Stimulating Hormone 2.13 uIU/mL (0.465-4.68)
[2021-06-05 11:49] LABS: Vitamin B12 447 pg/mL (239-931)
== END ==
PROVIDERS: Physician Assistant; Visit Provider Nurse Practitioner Family
DX: R10.11 Right upper quadrant pain (principal); R10.12 Left upper quadrant pain; K70.30 Alcoholic cirrhosis of liver without ascites; R63.4 Abnormal weight loss; K86.1 Other chronic pancreatitis; K86.81 Exocrine pancreatic insufficiency; K72.90 Hepatic failure, unspecified without coma; F17.290 Nicotine dependence, other tobacco product, uncomplicated; R29.898 Other symptoms and signs involving the musculoskeletal system
CPT/HCPCS: 36415; 80053; 82105; 82140; 82550; 82607; 82728; 83540; 83550; 84443; 85025; 85610; 86140

== ENCOUNTER → 2021-09-02 09:59 | Outpatient (CLI) | payer MEDICARE, SELFPAY ==
[2021-09-02 10:12] LABS: Basophils # 0.2 K/mm3 (0-0.2); Eosinophils # 0.1 K/mm3 (0.0-0.4); Eosinophils % 1.4 % (0.1-12.0); Hematocrit 40.6 % (37.0-47.0); Hemoglobin 11.5 g/dL (12.2-16.2); Lymphocytes # 1.8 K/mm3 (0.7-4.5); Lymphocytes % 22.8 % (10-50); Mean Corpuscular HGB Conc 28.4 g/dL (31.8-35.4); Mean Corpuscular Hemoglobin 26.9 pg (27.0-31.2); Mean Corpuscular Volume 94.5 fl (81-99); Mean Platelet Volume 8.7 fl (7.4-10.4); Monocytes # 0.5 K/mm3 (0.1-1.0); Monocytes % 6.7 % (1.7-9.3); Neutrophils # 5.4 K/mm3 (1.8-7.8); Platelet Count 390 K/mm3 (142-424); Red Cell Distribution Width 18.3 % (11.5-17.5); White Blood Count 8.1 K/mm3 (4.8-10.8)
[2021-09-02 10:51] LABS: Alanine Aminotransferase 39 U/L (12-78); Albumin Level 3.7 g/dl (3.5-5.0); Albumin/Globulin Ratio 1.4 (1.1-1.8); Alkaline Phosphatase 298 U/L (38-126); Amylase 36 U/L (30-110); Anion Gap 9.9 mEq/L (5-15); Aspartate Amino Transferase 43 U/L (14-36); Blood Urea Nitrogen 13 mg/dl (7-17); Calcium 9.5 mg/dl (8.4-10.2); Carbon Dioxide 32 mmol/L (22.0-30.0); Chloride 95 mmol/L (98-107); Estimated Glomerular Filt Rate 226 ml/min (>60); GFR (African American) 274 ML/MIN (>60); Globulin 2.7 g/dL (1.3-3.2); Glucose 249 mg/dl (74-100); Potassium 4.9 mmoL/L (3.5-5.1); Sodium 132 mmol/L (136-145); Total Protein,Serum 6.4 g/dl (6.3-8.2)
[2021-09-02 10:52] LABS: Bilirubin,Total 0.1 mg/dl (0.2-1.3); Lipase < 10 U/L (23-300)
[2021-09-02 10:54] LABS: Iron 160 ug/dL (37-170)
[2021-09-02 11:03] LABS: Total Iron Binding Capacity 364 ug/dL (265-497)
[2021-09-02 11:29] LABS: Ferritin 32.4 ng/ml (11.1-264)
== END ==
PROVIDERS: PCP Family Medicine; Visit Provider Family Medicine
DX: K86.3 Pseudocyst of pancreas (principal); K70.30 Alcoholic cirrhosis of liver without ascites; K86.0 Alcohol-induced chronic pancreatitis
CPT/HCPCS: 80053; 82150; 82728; 83540; 83550; 83690; 85025

== ENCOUNTER → 2021-10-07 08:57 | Outpatient (CLI) | payer MEDICARE, SELFPAY ==
--- NOTE | 2021-10-07 09:19 | CT_ITS ---
FINAL REPORT TECHNIQUE: Axial CT images of the abdomen and pelvis were obtained before and after the administration of IV contrast. Oral contrast was administered.This study was performed with techniques to keep radiation doses as low as reasonably achievable (ALARA). Individualized dose reduction techniques using automated exposure control or adjustment of mA and/or kV according to the patient''s size were employed. CLINICAL HISTORY: LEFT UPPER QUADRANT ABD PAIN COMPARISON: 11/19/2020 and 06/04/2020 FINDINGS: Abdomen: There are mild changes of emphysema in the lung bases. The heart is normal in size. The liver has an unremarkable appearance, without evidence of mass or biliary duct dilatation. There is mild nonspecific gallbladder wall thickening. Calcifications are again seen throughout the pancreas consistent with pancreatitis. The spleen is unremarkable. No adrenal mass is present. There are less than 1 cm cysts in both kidneys. The aorta is normal in caliber. There is no free fluid or adenopathy. Precontrast images demonstrate no evidence of nephrolithiasis. Pelvis: The appendix is partially visualized and normal where seen. There is wall thickening of the splenic flexure, descending colon, sigmoid colon and rectum worrisome for colitis. There is no evidence of bowel obstruction. The urinary bladder is unremarkable. There are diffuse vascular calcifications. IMPRESSION: Findings consistent with colitis. Findings of chronic pancreatitis are stable. Mild nonspecific gallbladder wall thickening. Reviewed, Interpreted and Dictated by Isacc Puente III, MD Transcribed by Anna Poole Authenticated and [facility]
[2021-10-07 09:30] LABS: Blood Urea Nitrogen 15 mg/dl (7-17); Estimated Glomerular Filt Rate 162 ml/min (>60); GFR (African American) 196 ML/MIN (>60)
== END ==
PROVIDERS: Family Medicine; PCP Family Medicine; Visit Provider Family Medicine
DX: R10.12 Left upper quadrant pain (principal)
CPT/HCPCS: 36415; 74178; 82565; 84520; Q9967

== ENCOUNTER 2021-10-15 14:49 | Observation (INO) | payer MEDICARE, SELFPAY ==
[2021-10-15] VITALS (8 sets, daily range): BP systolic 135–179; BP diastolic 91–107; PULSE 77–98; RESP 13–20; TEMP 36.7; O2SAT 100; BMI 12.4; BMI 12.2
--- NOTE | 2021-10-15 14:56 | ECG_ITS ---
APPROVED REPORT Exam: Resting ECG HR:92 bpm ECG Measurements Heart Rate 92 AXES MA 152 P 91 QRSd 90 QRS -77 QT 368 T 80 QTc 418 Conclusion SINUS RHYTHM POSSIBLE RIGHT ATRIAL ENLARGEMENT [0.25mV P-WAVE] POSSIBLE LEFT ATRIAL ENLARGEMENT [-0.1mV P-WAVE IN V1/V2] LEFT AXIS DEVIATION [QRS AXIS < -30] POSSIBLE RIGHT VENTRICULAR CONDUCTION DELAY [RSR (QR) IN V1/V2] PROBABLE SEPTAL MYOCARDIAL INFARCTION , OF INDETERMINATE AGE [35 ms Q WAVE IN V1/V2] ABNORMAL ECG UNCONFIRMED REPORT Electronically signed by : Pasquale Garay MD 10/16/2021 07:59:42
--- NOTE | 2021-10-15 15:15 | XR_ITS ---
FINAL REPORT CLINICAL HISTORY: RIB PAIN FINDINGS: The heart size is normal. The mediastinum is normal. There is no focal infiltrate or edema. There are no pleural effusions. There is no pneumothorax. There is no osseous abnormality. IMPRESSION: No acute cardiopulmonary process or acute bony abnormality. Reviewed, Interpreted and Dictated by Mckinley Schuster MD Transcribed by Alana Gaming Authenticated and [facility]
--- NOTE | 2021-10-15 15:49 | HMH.EDGENADL ---
Discharge Plan Disposition Patient Disposition: Admitted as Observation Condition: Fair Chief Complaint: Abdominal Pain Prescriptions Prescriptions: No Action carvedilol 25 mg tablet 25 mg PO BIDWM Qty: 60 5RF Rx Instructions: TAKE 1 TABLET BY MOUTH TWICE DAILY FOR HIGH BLOOD PRESSURE; MUST ADMINISTER WITH A MEAL OR FOOD. albuterol sulfate 1.25 MG/3 ML solution for nebulization 2 puff IH QID PRN (Reason: Shortness Of Breath Or Wheezing) estradiol 0.5 MG tablet 0.5 mg PO DAILY insulin glargine 100 UNIT/ML insulin pen 20 units SQ HS aspirin 81 MG tablet,delayed release (DR/EC) 81 mg PO DAILY omeprazole 20 MG capsule,delayed release(DR/EC) 20 mg PO DAILY trazodone 100 MG tablet 100 mg PO DAILY multivitamin with folic acid 400 MCG tablet 1 tab PO DAILY magnesium oxide 400 MG tablet 400 mg PO DAILY Qty: 30 2RF lactulose 20 GM/30 ML solution 10 gm PO BID Qty: 900 2RF tqhsjd-fqxjpeol-uigomkl 1 EACH capsule,delayed release(DR/EC) 2 each PO AC Qty: 180 2RF Referrals Referrals: Han Connell MD [Primary Care Provider] - Enter time for follow up Clinical Impressions Clinical Impression: Colitis, Atypical chest pain Instructions Patient Instructions: DI for Acute Abdominal Pain Discharge ED Provider: Darci Hernandez General Adult HPI General Chief complaint: Abdominal Pain Stated complaint: stomach pain Time Seen by Provider: 10/15/21 15:49 History of Present Illness HPI narrative: Patient complains of diffuse upper abdominal pain for 2 to 3 weeks. She has had diarrhea. Poor appetite and vomiting. Both legs hurt. Denies fever. For the past 2 to 3 days she also has central chest pain which she describes as feeling like there is a softball in my chest . She saw her primary care provider and had a CT scan of her abdomen last which showed colitis. She was started on Levaquin, but has not improved. PCP was contacted and advised to come back to the emergency department. 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 She no longer drinks. She sees Dr. Mendez for gastroenterology. She has COPD and is on home oxygen 1.5 L. Related Data Home Medications Medication Instructions Recorded Confirmed albuterol sulfate 1.25 mg/3 mL 2 puff IH QID PRN Shortness Of 03/27/17 06/05/20 solution for nebulization Breath Or Wheezing estradiol 0.5 mg tablet 0.5 mg PO DAILY hormone replacement 03/27/17 06/04/20 insulin glargine 100 unit/mL (3 20 units SQ HS Diabetes 02/02/20 06/04/20 mL) subcutaneous pen aspirin 81 mg tablet,delayed 81 mg PO DAILY HEART HEALTH 02/03/20 06/05/20 release omeprazole 20 mg capsule,delayed 20 mg PO DAILY Reflux/Acid reflux 06/04/20 06/04/20 release multivitamin with folic acid 400 1 tab PO DAILY Supplement 06/05/20 06/05/20 mcg tablet trazodone 100 mg tablet 100 mg PO DAILY MOOD 06/05/20 06/05/20 Previous Rx's Medication Instructions Recorded lactulose 20 gram/30 mL oral 10 gm PO BID #900 mL 06/12/20 solution [id number]-[id number] 2 each PO AC ##180 06/12/20 36,000-114,000-180,000 unit capsule,delay rel magnesium oxide 400 mg (241.3 mg 400 mg PO DAILY #30 tabs 06/12/20 magnesium) tablet carvedilol 25 mg tablet 25 mg PO BIDWM High blood pressure 01/28/21 #60 tabs Allergies Allergy/AdvReac Type Severity Reaction Status Date / Time cinnamon Allergy Severe TONGUE Verified 01/20/20 13:46 SWELL, NAUSEA acetaminophen AdvReac Unknown LIVER ISSUE Verified 01/20/20 13:46 PFSH PFSH Social History Smoking Status: Current every day smoker tobacco type: cigarettes packs per day: 1 second hand exposure: Yes alcohol intake: never substance use type: denies use current occupational status: unemployed household members: significant other housing: house current occupational exposures/hazards: No caffeine: Yes ROS
[2021-10-15 16:01] LABS: Basophils % 0.9 % (0.1-2.0); Eosinophils # 0.2 K/mm3 (0.0-0.4); Eosinophils % 3.1 % (0.1-12.0); Hematocrit 33.1 % (37.0-47.0); Hemoglobin 11.1 g/dL (12.2-16.2); Lymphocytes # 1.5 K/mm3 (0.7-4.5); Lymphocytes % 30.8 % (10-50); Mean Corpuscular HGB Conc 33.5 g/dL (31.8-35.4); Mean Corpuscular Hemoglobin 28.8 pg (27.0-31.2); Monocytes # 0.4 K/mm3 (0.1-1.0); Monocytes % 7.3 % (1.7-9.3); Neutrophils # 2.8 K/mm3 (1.8-7.8); Neutrophils % 57.9 % (37.0-80.0); Platelet Count 255 K/mm3 (142-424); Red Blood Count 3.85 M/mm3 (4.20-5.40); Red Cell Distribution Width 16.4 % (11.5-17.5); White Blood Count 4.7 K/mm3 (4.8-10.8)
[2021-10-15 16:04] LABS: Anion Gap 6.4 mEq/L (5-15); Blood Urea Nitrogen 9 mg/dl (7-17); Calcium 8.5 mg/dl (8.4-10.2); Carbon Dioxide 34 mmol/L (22.0-30.0); Chloride 93 mmol/L (98-107); Creatinine Clearance Estimated 30 mL/min (50-200); Estimated Glomerular Filt Rate 162 ml/min (>60); GFR (African American) 196 ML/MIN (>60); Glucose 324 mg/dl (74-100); Lipase < 10 U/L (23-300); Potassium 3.4 mmoL/L (3.5-5.1); Sodium 130 mmol/L (136-145)
[2021-10-15 16:20] LABS: Troponin I < 0.01 ng/ml (0.00-0.034)
--- NOTE | 2021-10-15 16:46 | CT_ITS ---
PROCEDURE INFORMATION: Exam: CT Abdomen And Pelvis With Contrast Exam date and time: 10/15/2021 5:31 PM Age: 61 years old Clinical indication: Abdominal pain; Additional info: Abdo pain, colitis TECHNIQUE: Imaging protocol: Computed tomography of the abdomen and pelvis with contrast. Radiation optimization: All CT scans at this facility use at least one of these dose optimization techniques: automated exposure control; mA and/or kV adjustment per patient size (includes targeted exams where dose is matched to clinical indication); or iterative reconstruction. Contrast material: ISOVUE; Contrast volume: 75 ml; Contrast route: IV; COMPARISON: CT ABDOMEN PELVIS WO/W CON 10/07/2021 9:50 AM FINDINGS: Lungs: Calcified granulomas left lung base. Liver: Hepatic steatosis. Gallbladder and bile ducts: Normal. No calcified stones. No ductal dilation. Enhancement of the gallbladder wall. Findings described on previous CT dated 12/18/2017. Pancreas: Pancreatic calcifications consistent with chronic pancreatitis again demonstrated. Spleen: Normal. No splenomegaly. Adrenal glands: Normal. No mass. Kidneys and ureters: Normal. No hydronephrosis. Stomach and bowel: Mild wall thickening involving the colon, primarily the descending and sigmoid colon. Findings compatible with colitis. Wall thickening is also demonstrated involving the rectosigmoid colon. Appendix: No evidence of appendicitis. Intraperitoneal space: Unremarkable. No free air. No significant fluid collection. Vasculature: Scattered regions of atherosclerotic vascular calcification within the abdominal aorta and common iliac arteries. Lymph nodes: Unremarkable. No enlarged lymph nodes. Urinary bladder: Unremarkable as visualized. Reproductive: Unremarkable as visualized. Bones/joints: Unremarkable. No acute fracture. Soft tissues: Unremarkable. Other findings: Associated mucosal enhancement. IMPRESSION: 1. Mild wall thickening involving the colon, primarily the descending and sigmoid colon. Findings compatible with colitis. 2. Please see above report for discussion of nonacute findings.
--- NOTE | 2021-10-15 17:00 | PC.NURSE ---
Patient's daughter came out to desk to let us know patient's BP was elevated and she was in a lot of pain. Went in to recheck patient's BP and it was still high. Came out to nurses station and let Steve RIVERS know about patients pain and BP
--- NOTE | 2021-10-15 17:21 | PC.NURSE ---
Went in to check on patient. Patient is sick to her stomach. Came back out to let Antonina know. Going to give patient pain medication and nausea medication
--- NOTE | 2021-10-15 17:25 | PC.NURSE ---
PT DOUBLED OVER IN PAIN AND NAUSEA IS BACK NO MED ORDERS GIVEN
--- NOTE | 2021-10-15 17:30 | PC.NURSE ---
PT GOING OVER TO CT
[2021-10-15 18:47] LABS: Microscopic, Urine URINE MICROSCOPIC (MICROSCOPIC)
--- NOTE | 2021-10-15 18:48 | PC.NURSE ---
has been paged
[2021-10-15 18:52] LABS: Appearance,Urine CLEAR (Clear); Bilirubin,Urine Negative (Negative); Blood, Urine Negative (Negative); Color,Urine YELLOW (Yellow); Glucose,Urine (UA) 3+ (Negative); Ketones,Urine Negative (Negative); Leukocyte Esterase,Urine Negative (Negative); Nitrate,Urine Negative (Negative); PH,Urine 6.5 (5.0-8.5); Protein,Urine 2+ (Negative); Specific Gravity, Urine 1.015 (1.005-1.030); Urobilinogen,Urine 0.2 EU/dl (0.2)
[2021-10-15 19:05] LABS: Coronavirus 19, PCR Not Detected (NotDetected); Influenza A, PCR Not Detected (NotDetected); Influenza B, PCR Not Detected (NotDetected)
[2021-10-15 19:12] LABS: Bacteria,Urine Trace /lpf; Squamous Epithelial Cell,Urine Occasional #/hpf (0-5)
--- NOTE | 2021-10-15 19:15 | PC.NURSE ---
LAB HERE FOR 2ND TROP
--- NOTE | 2021-10-15 20:07 | PC.NURSE ---
Pt updated on POC. Pt voiced no other needs or complaints at this time.
[2021-10-15 20:18] LABS: Troponin I < 0.01 ng/ml (0.00-0.034)
--- NOTE | 2021-10-15 21:02 | PC.NURSE ---
PT ARRIVED TO FLOOR VIA STRETCHER AT THIS TIME
--- NOTE | 2021-10-15 21:31 | PC.NURSE ---
She reports a hx of ETOH use, COPD, PA, HTN, cirrhosis-stage 4, total hysterectomy, breast augmentation, hernia repair, back surgery, and a bowel resection.
[2021-10-15 22:26] LABS: Troponin I < 0.01 ng/ml (0.00-0.034)
[2021-10-16] VITALS (7 sets, daily range): BP systolic 97–147; BP diastolic 65–90; PULSE 69–97; RESP 15–18; TEMP 36.6–36.9; O2SAT 98–100
--- NOTE | 2021-10-16 05:09 | PC.NURSE ---
pt admitted this shift, no changes from previous assessment, pt complains of abdominal pain under rib cage /, medicated with morphine as ordered x2, pt alert and oriented x4, pt is thin, noted multiple scab areas on patients back in which pt reports an allergy from detergents, pt up to bsc with assist x1, pt voiding without difficulty, pt on 2L of 02, lung sounds diminished, 02 sats 100%; pt with history of falls and bed alarm in place, no other issues noted at this time, telemetry reveals nsr with prolonged QT
[2021-10-16 06:24] LABS: POC Glucose,Bedside 108 (70-110)
[2021-10-16 06:25] LABS: POC Glucose,Bedside 79 (70-110)
--- NOTE | 2021-10-16 10:08 | EXP.HP ---
History of Present Illness *Admission Date: 10/15/21 *Reason for visit:: abdominal pain *History of present illness: Ms. Wilhelm is a chronically ill 61-year-old white female with a history of insulin-dependent diabetes mellitus, alcoholic cirrhosis, chronic pancreatitis, and COPD who has been complaining of persistent abdominal pain for the past several weeks but is gotten steadily worse. The pain seems different than her usual pancreatitis pain and is more on the left side of her abdomen. She underwent outpatient CT scan of the abdomen last week with findings of left-sided colitis and was started on Levaquin. Her pain has persisted and worsened and she presented to the emergency room with these complaints. Please refer to the ER documents for details. Her labs are fairly unremarkable. CT scan continues to show left-sided colitis essentially unchanged from her previous CT scan. Because of her persistent symptoms, she has been admitted for further evaluation and treatment. At the time of my exam this morning she is still having fairly significant abdominal pain requiring regular doses of IV morphine. She is still having loose stools. She is not aware of any blood in the stool. She has had some nausea but no vomiting. [facility] Medical History Alcoholic cirrhosis of liver without ascites Cachexia Cirrhosis COPD (chronic obstructive pulmonary disease) Exocrine pancreatic insufficiency History of heart attack Hypertension Pancreatitis Surgical History (Updated 10/16/21 @ 13:50 by Han Connell MD) History of hysterectomy for benign disease Hx of breast augmentation Hx of exploratory laparotomy Tubal ligation status Family History (Updated 10/16/21 @ 13:52 by Han Connell MD) COPD (chronic obstructive pulmonary disease) Cancer Social History Smoking Status: Current every day smoker tobacco type: cigarettes packs per day: 1 second hand exposure: Yes alcohol intake: never substance use type: denies use current occupational status: unemployed household members: significant other housing: house current occupational exposures/hazards: No caffeine: Yes Review of Systems Constitutional Constitutional: Denies excessive sweating, Reports poor appetite, Reports lethargy and Reports weakness Eyes Eyes: Reports system reviewed and no additional complaints, except as documented ENT Ears, Nose, Mouth, and Throat: Reports nasal congestion *Cardiovascular Cardiovascular: Reports chest pain and Denies leg edema *Respiratory Respiratory: Denies chest congestion, Denies cough and Denies hemoptysis *Gastrointestinal Gastrointestinal: Reports as per HPI *Genitourinary Genitourinary: Denies dysuria, Denies hematuria and Denies urinary incontinence *Musculoskeletal Musculoskeletal: Reports other (Bilateral leg pain) Integumentary/Breasts Skin/Breast: Reports system reviewed and no additional complaints, except as documented *Neurologic Neurologic: Reports paresthesias (in legs) and Reports weakness Endocrine Endocrine: Denies excessive sweating and Denies polydipsia Meds Home Medications and Allergies Home Medications Medication Instructions Recorded Confirmed Type ferrous sulfate 325 mg (65 mg 325 mg PO BID Supplement 10/15/21 10/16/21 History iron) tablet (FeroSul) fluticasone fur. 100 mcg-umeclid 1 inh inhalation DAILY COPD 10/15/21 10/15/21 History 62.5 mcg-vilant 25 mcg inhalat.powder (Trelegy Ellipta) insulin glargine 100 unit/mL 13 unit SQ PM Diabetes 10/15/21 10/16/21 History subcutaneous cartridge levofloxacin 500 mg tablet 500 mg PO DAILY Infection 10/15/21 10/15/21 History rifaximin 550 mg tablet (Xifaxan) 550 mg PO DAILY LIVER 10/15/21 10/15/21 History ropinirole 1 mg tablet 1 mg PO HS restless leg 10/15/21 10/16/21 History albuterol sulfate 90 mcg/actuation 1 - 2 puff inhalation QIDP PRN 10/16/21 10/16/21 Hi
--- NOTE | 2021-10-16 11:53 | EXP.PHA.VTE ---
[facility] Pharmacy VTE Monitoring Patient Demographics Admission date: 10/15/21 Report Date: 10/16/21 Time: 11:53 Patient Allergies cinnamon Allergy (Severe, Verified 01/20/20 13:46) TONGUE SWELL, NAUSEA acetaminophen Adverse Reaction (Unknown, Verified 01/20/20 13:46) LIVER ISSUE Height: 1.6 m Weight: 31.44 kg Current Active Problems (Updated 10/16/21 @ 11:25 by Han Connell MD) Cachexia (Acute) Exocrine pancreatic insufficiency (Acute) Alcoholic cirrhosis of liver without ascites (Acute) Epigastric abdominal pain (Acute) IDDM (insulin dependent diabetes mellitus) (Chronic) Tobacco dependence syndrome (Acute) Chronic pancreatitis (Acute) COPD (chronic obstructive pulmonary disease) (Chronic) Colitis (Acute) Atypical chest pain (Acute) VTE Risk Labs: VTE Related Lab Results Hgb 11.1 g/dL (12.2-16.2) L 10/15/21 15:42 Hct 33.1 % (37.0-47.0) L 10/15/21 15:42 Plt Count 255 K/mm3 (142-424) 10/15/21 15:42 BUN 9 mg/dl (7-17) 10/15/21 15:42 Creatinine 0.40 mg/dl (0.52-1.04) L 10/15/21 15:42 Estimated Creat Clear 30 mL/min (50-200) 10/15/21 15:42 Was VTE Risk Assessment Performed: Yes VTE Score: 2 VTE Risk Level: Very Low Risk Clinical Trial Participant: No Prophylaxis VTE Prophylaxis Ordered?: Yes Types of VTE Prophylaxis: TEDS Knee High Location of Applied Device: Refused
[2021-10-16 12:38] LABS: POC Glucose,Bedside 160 (70-110)
--- NOTE | 2021-10-16 15:08 | HMH.PHAINT1 ---
Pharmacy Intervention Comments: MEDICATION RECONCILIATION COMPLETE USING EXTERNAL PHARMACY FILL HISTORY AND CALL TO NURSE WHO SPOKE WITH PATIENT'S DAUGHTER.
[2021-10-16 17:10] LABS: POC Glucose,Bedside 81 (70-110)
--- NOTE | 2021-10-16 18:58 | PC.NURSE ---
Pt a/o x 4. Meds given per mar. No acute changes since prior assessment. VSS. CB in reach. Have medicated with pain meds per mar this shift. Patient states pain is under her ribs mainly. Pt has had one soft bowel movement, light in color and odor.
[2021-10-16 20:30] LABS: POC Glucose,Bedside 174 (70-110)
[2021-10-17] VITALS (8 sets, daily range): BP systolic 135–175; BP diastolic 84–93; PULSE 70–100; RESP 16–20; TEMP 36.7–37.2; O2SAT 98–100; BMI 12.2
--- NOTE | 2021-10-17 04:00 | PC.NURSE ---
no changes from previous assessment, lung sounds diminished, 02 at 1L with 02 sats 100%; VSS, skin pwd, no edema, pt complains of upper abdominal pain under rib cage rated 10/10 with stated relief from morphine, no bm this shift, voiding without difficulty, pt up to bsc with assist, pt is alert and oriented x4, no other issues noted at this time.
[2021-10-17 06:33] LABS: POC Glucose,Bedside 139 (70-110)
[2021-10-17 09:00] LABS: Adenovirus F 40/41, stool Not Detected (NotDetected); Astrovirus Not Detected (NotDetected); Campylobacter Not Detected (NotDetected); Clostridium Difficile A/B, PCR Not Detected (NotDetected); Cryptosporidium Not Detected (NotDetected); Cyclospora Cayetanesis Not Detected (NotDetected); Entamoeba histolytica Not Detected (NotDetected); Enteroaggregative E coli Not Detected (NotDetected); Enteropathogenic E coli Not Detected (NotDetected); Enterotoxigenic E coli Not Detected (NotDetected); Giardia lamblia Not Detected (NotDetected); Norovirus Not Detected (NotDetected); Plesimonas Shigalloides, PCR Not Detected (NotDetected); Rotavirus A Not Detected (NotDetected); Salmonella, PCR Not Detected (NotDetected); Sapovirus Not Detected (NotDetected); Shiga-like toxin E coli Not Detected (NotDetected); Shigella Enterovasive E coli Not Detected (NotDetected); Vibrio Cholerae Not Detected (NotDetected); Vibrio, PCR Not Detected (NotDetected); Yersinia Entercolitica, PCR Not Detected (NotDetected)
--- NOTE | 2021-10-17 09:10 | P.PN_ITS ---
Subjective *Date: 10/17/21 *Time: 09:10 Interval history: Still requiring frequent doses of pain medication but subjectively feels her pain is a little better . She is tolerating her diet with no nausea or vomiting. Bowels are moving mostly loose. Exam Data for Last 24 hours Vital signs and Labs for Last 24 Hours: Temp Pulse Resp BP Pulse Ox 98.1 F 99 H 20 153/93 H 98 10/17/21 08:00 10/17/21 08:00 10/17/21 08:00 10/17/21 08:00 10/17/21 08:00 Laboratory Results - last 24 hr 10/16/21 12:22: POC Glucose 160 H 10/16/21 16:40: POC Glucose 81 10/16/21 20:00: POC Glucose 174 H 10/17/21 06:26: POC Glucose 139 H I & O for Last 24 hours: Intake & Output 10/14/21 10/15/21 10/16/21 10/17/21 11:59 11:59 11:59 11:59 Intake Total 2047 / 2047 2206 / 2206 Output Total 100 / 100 401 / 401 Balance 1947 / 1947 1805 / 1805 Weight 69 lb 5 oz 69 lb 3.602 oz Constitutional Comments: She is alert and oriented. Appears in moderate distress. Breath sounds are generally diminished. No rales or wheezes. Abdomen is thin and nondistended. Moderate diffuse tenderness with voluntary guarding. Bowel sounds are present. Extremities no edema. Assessment and Plan *Assessment and plan (1) Colitis: Status: Acute Category: Medical Code(s): K52.9 - Noninfective gastroenteritis and colitis, unspecified (2) Chronic pancreatitis: Status: Acute Category: Medical Code(s): K86.1 - Other chronic pancreatitis (3) Exocrine pancreatic insufficiency: Status: Acute Category: Medical Code(s): K86.81 - Exocrine pancreatic insufficiency (4) Cachexia: Status: Acute Category: Medical Code(s): R64 - Cachexia (5) IDDM (insulin dependent diabetes mellitus): Status: Chronic Category: Medical Code(s): E11.9 - Type 2 diabetes mellitus without complications; Z79.4 - penitentiary (current) use of insulin (6) COPD (chronic obstructive pulmonary disease): Status: Chronic Category: Medical Code(s): J44.9 - Chronic obstructive pulmonary disease, unspecified (7) Alcoholic cirrhosis of liver without ascites: Status: Acute Category: Medical Code(s): K70.30 - Alcoholic cirrhosis of liver without ascites Assessment and plan all Dx Plan of Treatment: Minimal improvement. Morning labs still pending. Stool studies pending. Continue current antibiotics. Add IV steroids.
[2021-10-17 09:12] LABS: Basophils % 0.8 % (0.1-2.0); Eosinophils # 0.2 K/mm3 (0.0-0.4); Eosinophils % 2.7 % (0.1-12.0); Hematocrit 36.1 % (37.0-47.0); Hemoglobin 11.2 g/dL (12.2-16.2); Lymphocytes # 1.1 K/mm3 (0.7-4.5); Lymphocytes % 20.2 % (10-50); Mean Corpuscular Hemoglobin 26.9 pg (27.0-31.2); Mean Corpuscular Volume 86.5 fl (81-99); Mean Platelet Volume 7.6 fl (7.4-10.4); Monocytes # 0.4 K/mm3 (0.1-1.0); Monocytes % 7.3 % (1.7-9.3); Neutrophils # 3.7 K/mm3 (1.8-7.8); Platelet Count 222 K/mm3 (142-424); Red Blood Count 4.17 M/mm3 (4.20-5.40); Red Cell Distribution Width 16.1 % (11.5-17.5); White Blood Count 5.3 K/mm3 (4.8-10.8)
--- NOTE | 2021-10-17 09:18 | PC.NURSE ---
courtesy tech emerson: Pt is sitting up in bed and needed help to the bedside commode. Pt did good with minimum assist. Pt is back in bed and has no further requests at this time
[2021-10-17 09:21] LABS: Blood Urea Nitrogen 6 mg/dl (7-17); Calcium 7.7 mg/dl (8.4-10.2); Chloride 96 mmol/L (98-107); Glucose 285 mg/dl (74-100)
[2021-10-17 09:36] LABS: Anion Gap 5.8 mEq/L (5-15); Carbon Dioxide 34 mmol/L (22.0-30.0); Creatinine Clearance Estimated 29 mL/min (50-200); Estimated Glomerular Filt Rate 226 ml/min (>60); GFR (African American) 274 ML/MIN (>60); Magnesium 1.1 mg/dl (1.6-2.3); Sodium 133 mmol/L (136-145)
[2021-10-17 09:39] LABS: Potassium 2.8 mmoL/L (3.5-5.1)
--- NOTE | 2021-10-17 09:48 | PC.NURSE ---
K 2.8 this am, notified Dr. Connell of critical. He ordered 20 meq of k po BID @ 3475.
[2021-10-17 11:42] LABS: POC Glucose,Bedside 409 (70-110)
--- NOTE | 2021-10-17 18:46 | PC.NURSE ---
Addendum entered by Mynor Conway RN 10/17/21 18:51: Pts stool did also appear to have some fat present and Dr. Connell also aware. Original Note: Pt a/o x 4. No changes since previous assessment. Meds given per mar. VSS. Stool appeared to look like threds and have foul odor. Sample sent to lab. Dr. Connell aware. Pt has had no emesis and been up to the bsc this shift.
[2021-10-18] VITALS (8 sets, daily range): BP systolic 109–190; BP diastolic 68–102; PULSE 70–97; RESP 16–18; TEMP 36.9–37.1; O2SAT 95–100; BMI 12.2
[2021-10-18 03:43] LABS: POC Glucose,Bedside 229 (70-110)
--- NOTE | 2021-10-18 05:23 | PC.NURSE ---
pt with complaints of abdominal pain under rib cage, pt is tolerating with po food well with mild complaints of nausea, no vomiting noted, V/S noted with b/p elevation with maps being over 100; no edema, skin fragile and pt is thin, 02 at 1L pnc with 02 sats at 97-100; lung sounds diminished, no other issues noted at this time.
[2021-10-18 06:13] LABS: POC Glucose,Bedside 329 (70-110)
[2021-10-18 06:58] LABS: Anion Gap 6.7 mEq/L (5-15); Blood Urea Nitrogen 9 mg/dl (7-17); Calcium 8.6 mg/dl (8.4-10.2); Carbon Dioxide 34 mmol/L (22.0-30.0); Chloride 96 mmol/L (98-107); Creatinine Clearance Estimated 29 mL/min (50-200); Estimated Glomerular Filt Rate 162 ml/min (>60); GFR (African American) 196 ML/MIN (>60); Glucose 341 mg/dl (74-100); Potassium 3.7 mmoL/L (3.5-5.1); Sodium 133 mmol/L (136-145)
--- NOTE | 2021-10-18 07:28 | ECG_ITS ---
APPROVED REPORT Exam: Resting ECG HR:99 bpm ECG Measurements Heart Rate 99 AXES WI 187 P 80 QRSd 73 QRS -66 QT 336 T 72 QTc 392 Conclusion SINUS RHYTHM LEFT AXIS DEVIATION [QRS AXIS < -30] POSSIBLE RIGHT VENTRICULAR CONDUCTION DELAY [RSR (QR) IN V1/V2] ABNORMAL ECG UNCONFIRMED REPORT Electronically signed by : Pasquale Garay MD 10/18/2021 20:08:41
--- NOTE | 2021-10-18 12:16 | PC.NURSE ---
RN aware of elevated bp.
--- NOTE | 2021-10-18 13:42 | EXP.PN ---
Subjective *Date: 10/18/21 *Time: 17:14 Interval history: Patient was seen this morning. She states she continues with the same amount of abdominal pain. She describes the discomfort as a constant aching and periodic sharp left upper quadrant jabbing type pains. She states her breathing is doing fine and denies chest pain. She is little nauseated after eating some breakfast. She is trying to eat small amounts at a time. Her diarrhea is less. She is up to the bedside commode and states she is trying to do some leg exercises. Exam Data for Last 24 hours Vital signs and Labs for Last 24 Hours: Temp Pulse Resp BP Pulse Ox 98.6 F 97 H 18 150/88 H 100 10/18/21 12:00 10/18/21 12:00 10/18/21 12:00 10/18/21 12:40 10/18/21 12:00 Laboratory Results - last 24 hr 10/17/21 08:30: Stl Aeromonas (PCR) Not detected, Stl C. cayetanensis PCR Not detected, Stool Rotavirus (PCR) Not detected, Stl Adenov F 40/41 PCR Not detected, Stool Astrovirus (PCR) Not detected, Stool Campylobacter PCR Not detected, Stl C.difficile Tox PCR Not detected, Stool Cryptosporidium PCR Not detected, Stl E.coli Shiga Tox PCR Not detected, Stool E coli O157 PCR Not detected, Stl Enterotoxigenic E PCR Not detected, Stool EPEC (PCR) Not detected, Stool EAEC (PCR) Not detected, Stl E. histolytica PCR Not detected, Stool Giardia Lamblia PCR Not detected, Stool Salmonella PCR Not detected, Stool Sapovirus (PCR) Not detected, Stl P. shigelloides PCR Not detected, Stl Shigella/EIEC PCR Not detected, St Y.enterocolitica PCR Not detected, Stool Vibrio (PCR) Not detected, Stl Vibrio cholerae PCR Not detected, Stl Norovirus GI/GII PCR Not detected 10/17/21 21:17: POC Glucose 229 H 10/18/21 06:00: POC Glucose 329 H* 10/18/21 06:15: Sodium 133 L, Potassium 3.7 D, Chloride 96 L, Carbon Dioxide 34 H, Anion Gap 6.7, BUN 9 D, Creatinine 0.40 L D, Estimated Creat Clear 29, Estimated GFR 162, Est GFR ( Amer) 196 D, Glucose 341 H, Calcium 8.6 I & O for Last 24 hours: Intake & Output 10/16/21 10/17/21 10/18/21 10/19/21 11:59 11:59 11:59 11:59 Intake Total 2047 220 / 2206 3259 / 3259 Output Total 100 / 100 701 / 701 2501 / 2501 Balance 1948 / 194 1505 / 1505 758 / 758 Weight 69 lb 5 oz 69 lb 3.602 oz Constitutional Constitutional: no acute distress and cachectic *Routine Respiratory Exam Respiratory: Present CTA bilaterally *Routine Cardiovascular Exam Cardiovascular: Present RRR *Routine Abdominal Exam Abdominal: Present normoactive bowel sounds, tenderness and distended *Routine Extremities Exam Extremities: Present full ROM; Absent edema or calf tenderness *Routine Neurological Exam Neurological: Present alert and oriented X3 Assessment and Plan *Assessment and plan (1) Cachexia: Status: Acute Category: Medical Code(s): R64 - Cachexia (2) Exocrine pancreatic insufficiency: Status: Acute Category: Medical Code(s): K86.81 - Exocrine pancreatic insufficiency (3) Alcoholic cirrhosis of liver without ascites: Status: Acute Category: Medical Code(s): K70.30 - Alcoholic cirrhosis of liver without ascites (4) Epigastric abdominal pain: Status: Acute Category: Medical Code(s): R10.13 - Epigastric pain (5) Chronic alcoholic pancreatitis: Status: Chronic Category: Medical Code(s): K86.0 - Alcohol-induced chronic pancreatitis (6) Dehydration: Status: Acute Category: Medical Code(s): E86.0 - Dehydration (7) IDDM (insulin dependent diabetes mellitus): Status: Chronic Category: Medical Code(s): E11.9 - Type 2 diabetes mellitus without complications; Z79.4 - medical terminologist (current) use of insulin (8) Hypertension: Status: Chronic Qualifiers: Hypertension type: essential hypertension Qualified Code(s): I10 - Essential (primary) hypertension Category: Medical Code(s): I10 - Essential (p
--- NOTE | 2021-10-18 18:24 | PC.NURSE ---
Patient pain not able to be controlled during shift. IV morphine given and Dr. Connell informed but no new orders. Patient still complains of pain under ribs across abdomen with no relief. VS stable and patient switched between 1LNc and room air throughout shift. Patient able to ambulate to bedside commode.
[2021-10-18 19:53] LABS: POC Glucose,Bedside 282 (70-110)
[2021-10-19] VITALS: BP 145/74; PULSE 60; PULSE 72; RESP 17; TEMP 36.7; O2SAT 100
[2021-10-19 04:00] VITALS: BP 156/76; PULSE 70; RESP 16; TEMP 36.7; O2SAT 100
[2021-10-19 05:44] LABS: POC Glucose,Bedside 277 (70-110)
[2021-10-19 06:00] VITALS: BMI 14.2
[2021-10-19 07:50] LABS: Chloride 99 mmol/L (98-107); Potassium 3.9 mmoL/L (3.5-5.1); Sodium 133 mmol/L (136-145)
[2021-10-19 07:53] LABS: Blood Urea Nitrogen 8 mg/dl (7-17); Creatinine Clearance Estimated 34 mL/min (50-200); Estimated Glomerular Filt Rate 226 ml/min (>60); GFR (African American) 274 ML/MIN (>60)
[2021-10-19 07:54] LABS: Anion Gap 4.9 mEq/L (5-15); Calcium 8.3 mg/dl (8.4-10.2); Carbon Dioxide 33 mmol/L (22.0-30.0); Glucose 255 mg/dl (74-100)
[2021-10-19 08:00] VITALS: BP 97/76; PULSE 71; PULSE 80; RESP 17; TEMP 37.1; O2SAT 97
--- NOTE | 2021-10-19 09:39 | PC.NURSE ---
Patient stated it would take a while for her ex- to come pick her up for discharge.
--- NOTE | 2021-10-19 10:25 | PC.NURSE ---
Rounded on pt, cleaned and straightened room. Pt to be discharged home today. No needs voiced at this time.
--- NOTE | 2021-10-19 10:46 | CARE MANAGER ---
Patient was discharged from home health last week. She had [facility] and patient and daughter were not satisfied with the services. Information was sent to [facility]. Will follow up.
[2021-10-19 11:11] VITALS: BP 141/82; PULSE 75; RESP 16; TEMP 36.7; O2SAT 98
--- NOTE | 2021-10-19 11:19 | EXP.PN ---
Subjective *Date: 10/19/21 *Time: 13:22 Interval history: Patient states she is going home today; She has been able to eat a little more and is drinking fluids; She continues with the LUQ sharp abdominal pain; she feels her breathing is doing well; she stays in the bed most of the time Exam Data for Last 24 hours Vital signs and Labs for Last 24 Hours: Temp Pulse Resp BP Pulse Ox 98.1 F 75 16 141/82 H 98 10/19/21 11:11 10/19/21 11:11 10/19/21 11:11 10/19/21 11:11 10/19/21 11:11 Laboratory Results - last 24 hr 10/18/21 19:45: POC Glucose 282 H 10/19/21 05:27: POC Glucose 277 H 10/19/21 06:23: Sodium 133 L, Potassium 3.9, Chloride 99, Carbon Dioxide 33 H, Anion Gap 4.9 L, BUN 8, Creatinine 0.30 L D, Estimated Creat Clear 34, Estimated GFR 226, Est GFR ( Amer) 274 D, Glucose 255 H, Calcium 8.3 L I & O for Last 24 hours: Intake & Output 10/16/21 10/17/21 10/18/21 10/19/21 11:59 11:59 11:59 11:59 Intake Total 2048 / 2048 2206 / 2206 3259 / 3259 1489 / 1489 Output Total 100 / 100 701 / 701 2501 / 2501 1250 / 1250 Balance 1948 / 1948 1505 / 1505 758 / 758 239 / 239 Weight 69 lb 5 oz 69 lb 3.602 oz 80 lb 6.4 oz Constitutional Constitutional: no acute distress and cachectic Comments: movements are slow *Routine Respiratory Exam Respiratory: Present decreased breath sounds and CTA bilaterally *Routine Cardiovascular Exam Cardiovascular: Present RRR *Routine Abdominal Exam Abdominal: Present soft, normoactive bowel sounds and tenderness *Routine Extremities Exam Extremities: Absent edema *Routine Neurological Exam Neurological: Present alert and oriented X3 Assessment and Plan *Assessment and plan (1) Cachexia: Status: Acute Category: Medical Code(s): R64 - Cachexia (2) Exocrine pancreatic insufficiency: Status: Acute Category: Medical Code(s): K86.81 - Exocrine pancreatic insufficiency (3) Alcoholic cirrhosis of liver without ascites: Status: Acute Category: Medical Code(s): K70.30 - Alcoholic cirrhosis of liver without ascites (4) Epigastric abdominal pain: Status: Acute Category: Medical Code(s): R10.13 - Epigastric pain (5) Pancreatic pseudocyst: Status: Chronic Category: Medical Code(s): K86.3 - Pseudocyst of pancreas (6) Chronic alcoholic pancreatitis: Status: Chronic Category: Medical Code(s): K86.0 - Alcohol-induced chronic pancreatitis (7) IDDM (insulin dependent diabetes mellitus): Status: Chronic Category: Medical Code(s): E11.9 - Type 2 diabetes mellitus without complications; Z79.4 - extermination inspector (current) use of insulin (8) Hypertension: Status: Chronic Qualifiers: Hypertension type: essential hypertension Qualified Code(s): I10 - Essential (primary) hypertension Category: Medical Code(s): I10 - Essential (primary) hypertension (9) COPD (chronic obstructive pulmonary disease): Status: Chronic Category: Medical Code(s): J44.9 - Chronic obstructive pulmonary disease, unspecified Plan patient will be discharged to home today with meds as listed; to schedule FU with Dr. Andrea IRVIN Assessment and plan all Dx Plan of Treatment: Patient seen and examined. SHe is insistent on going home. BP has improved and in fact, is low this morning. She is requiring less pain medication since adding Gabapentin. She is tolerating her diet and having regular BMs. She is stable for discharge but needs GI f/u for possible c-scope or flex-sig. .
[2021-10-19 12:02] LABS: POC Glucose,Bedside 371 (70-110)
--- NOTE | 2021-10-20 13:15 | CARE MANAGER ---
Spoke with patient for post-discharge phone interview, she states she is still hurting under her ribs But she is ok. Reminded of appointments.
--- NOTE | 2021-10-21 16:47 | EXP.DC.SUM ---
General Admission date:: 10/15/21 Discharge date: 10/19/21 HPI HPI HPI: Ms. Wilhelm is a chronically ill 61-year-old white female with a history of insulin-dependent diabetes mellitus, alcoholic cirrhosis, chronic pancreatitis, and COPD who had been complaining of persistent abdominal pain for the past several weeks but was steadily worse. The pain seemed different than her usual pancreatitis pain and was more on the left side of her abdomen. She underwent outpatient CT scan of the abdomen the previous week with findings of left-sided colitis and was started on Levaquin. Her pain persisted and worsened and she presented to the emergency room with these complaints. Please refer to the ER documents for details. Her labs were fairly unremarkable. CT scan continued to show left-sided colitis essentially unchanged from her previous CT scan. Because of her persistent symptoms, she has been admitted for further evaluation and treatment. At the time AM exam she was still having fairly significant abdominal pain requiring regular doses of IV morphine. She was still having loose stools. She was not aware of any blood in the stool. She had some nausea but no vomiting. Hospital Course Hospital Course Hospital Course: Having failed outpatient treatment patient was started on IV antibiotics and IV fluids on admission. She was given IV morphine for her ongoing abdominal pain. She continued with diarrhea which did improve during her stay. She gradually was able to eat and drink more. She did experience some nausea. Will she was out of bed to the bedside commode and otherwise did not ambulate. Blood pressure did elevate during her stay and beta nick was increased as well as YENNIFER inhibitor added also to product her kidney function. On 2021 patient was insistent on going home. She had been started on gabapentin which seemed to help her pain. Following Discharge she will follow-up with GI for possible C-scope or sigmoidoscopy. See medicine reconciliation sheet for meds. See data for imaging and labs. Exam Data for Last 24 hours Vital signs and Labs for Last 24 Hours: Temp Pulse Resp BP Pulse Ox 98.1 F 75 16 141/82 H 98 10/19/21 11:11 10/19/21 11:11 10/19/21 11:11 10/19/21 11:11 10/19/21 11:11 10/17/21 08:30:?Stl Aeromonas (PCR) Not detected, Stl C. cayetanensis PCR Not detected, Stool Rotavirus (PCR) Not detected, Stl Adenov F 40/41 PCR Not detected, Stool Astrovirus (PCR) Not detected, Stool Campylobacter PCR Not detected, Stl C.difficile Tox PCR Not detected, Stool Cryptosporidium PCR Not detected, Stl E.coli Shiga Tox PCR Not detected, Stool E coli O157 PCR Not detected, Stl Enterotoxigenic E PCR Not detected, Stool EPEC (PCR) Not detected, Stool EAEC (PCR) Not detected, Stl E. histolytica PCR Not detected, Stool Giardia Lamblia PCR Not detected, Stool Salmonella PCR Not detected, Stool Sapovirus (PCR) Not detected, Stl P. shigelloides PCR Not detected, Stl Shigella/EIEC PCR Not detected, St Y.enterocolitica PCR Not detected, Stool Vibrio (PCR) Not detected, Stl Vibrio cholerae PCR Not detected, Stl Norovirus GI/GII PCR Not detected 10/17/21 21:17: POC Glucose 229 H 10/18/21 06:00: POC Glucose 329 H* 10/18/21 06:15: Sodium 133 L,?Potassium 3.7? D,?Chloride 96 L,?Carbon Dioxide 34 H, Anion Gap 6.7,?BUN 9? D,?Creatinine 0.40 L D, Estimated Creat Clear 29, Estimated GFR 162,?Est GFR ( Amer) 196? D,?Glucose 341 H, Calcium 8.6 I & O for Last 24 hours: Intake & Output 10/19/21 10/20/21 10/21/21 10/22/21 11:59 11:59 11:59 11:59 Intake Total 1489 / 1489 Output Total 1250 / 1250 Balance 239 / 239 Weight 80 lb 6.4 oz Radiology Reports for the Last 24 Hours: 10/15/2021 CT of abdomen/pelvis FINDINGS: Lungs: Calcified granulomas left lung base. Liver: Hepatic steatosis. Gallbladder and bile ducts: Normal. No calcified stones. No ductal dilation. Enhancement of the gallbladder wall. Findings described on pre
== END 2021-10-19 11:53 | disposition home or self-care (01) ==
LOC: ER 18:57 → 2ND 19:00
PROVIDERS: Admitting Provider Family Medicine; Emergency Provider Emergency Medicine; PCP Family Medicine; Visit Provider Family Medicine
DX: K52.9 Noninfective gastroenteritis and colitis, unspecified (principal); K86.1 Other chronic pancreatitis; R64 Cachexia; K86.81 Exocrine pancreatic insufficiency; E11.9 Type 2 diabetes mellitus without complications; Z79.4 Long term (current) use of insulin; F17.210 Nicotine dependence, cigarettes, uncomplicated; J44.9 Chronic obstructive pulmonary disease, unspecified; K70.30 Alcoholic cirrhosis of liver without ascites; R10.13 Epigastric pain; K86.0 Alcohol-induced chronic pancreatitis; E86.0 Dehydration; I10 Essential (primary) hypertension; K86.3 Pseudocyst of pancreas; Z68.1 Body mass index [BMI] 19.9 or less, adult; Z79.899 Other long term (current) drug therapy; Z20.822 Contact with and (suspected) exposure to COVID-19
CPT/HCPCS: G0378; 36415; 71045; 74177; 80048; 81001; 82962; 83690; 83735; 84484; 85025; 87506; 93005; 94640; 99285; C9803; J1956; J2405; Q9967; U0003; U0005

== ENCOUNTER 2021-10-28 14:03 | Observation (INO) | payer MEDICARE, SELFPAY ==
[2021-10-28] VITALS (12 sets, daily range): BP systolic 121–174; BP diastolic 74–100; PULSE 67–96; RESP 15–20; TEMP 36.8–37.2; O2SAT 96–100; BMI 11.5; BMI 12.9
--- NOTE | 2021-10-28 | ECG_ITS ---
APPROVED REPORT Exam: Resting ECG HR:90 bpm ECG Measurements Heart Rate 90 AXES OR 146 P 88 QRSd 74 QRS -82 QT 341 T 80 QTc 389 Conclusion SINUS RHYTHM Bi-atrial abnormality Poor r wave progression Incomplete RBBB UNCONFIRMED REPORT Electronically signed by : Pasquale Garay MD 10/28/2021 14:45:36
--- NOTE | 2021-10-28 14:21 | HMH.EDGENADL ---
Discharge Plan Disposition Patient Disposition: Admitted as Observation Condition: Fair Clinical Impressions Clinical Impression: Abdominal pain, Acute hyperglycemia, Vomiting, Chronic pancreatitis, Colitis Discharge ED Provider: Darci Hernandez General Adult HPI General Chief complaint: Nausea/Vomiting/Diarrhea Stated complaint: stomach pain, vomiting Time Seen by Provider: 10/28/21 14:38 Mode of Arrival: Wheelchair Source of Information: Patient and Relative Limitations: No Limitations Description of Symptoms (Recalled from ER Triage Doc. by RN): Pt reports pain up under rib cage . Pt reports pain is on yvonne sides under ribs. Pt reports was recently admitted and treated for colitis. Pt reports pain has not improved and vomitting has worsened since d/c from hospital. Pt reports unable to keep anything down. Reports was d/c'd with flagyl-completed prescription. Was prescribed gabapentin for pain but states unable to keep it down. Pt also reports diarrhea. History of Present Illness HPI narrative: Complains of pain up under her rib cage on both sides. I saw her in the emergency department on 10/15/2021, and at that time she had been having symptoms for 2 to 3 weeks. She had been evaluated by her primary care provider in the office and had had a CT scan of her abdomen and pelvis that showed colitis. Repeat evaluation in the emergency department showed the same. She was admitted to the hospital and stayed until 10/19/2021. She says symptoms have never resolved since then but are now worsened again. She is vomiting. She continues to have loose stool. She denies fever. She has not had an outpatient office visit since her discharge. She says that she is on gabapentin for pain and it is not helping. She also has a history of alcoholic cirrhosis and chronic pancreatitis. Related Data Home Medications Medication Instructions Recorded Confirmed ferrous sulfate 325 mg (65 mg 325 mg PO BID Supplement 10/15/21 10/16/21 iron) tablet (FeroSul) fluticasone fur. 100 mcg-umeclid 1 inh inhalation DAILY COPD 10/15/21 10/16/21 62.5 mcg-vilant 25 mcg inhalat.powder (Trelegy Ellipta) insulin glargine 100 unit/mL 13 unit SQ PM Diabetes 10/15/21 10/16/21 subcutaneous cartridge rifaximin 550 mg tablet (Xifaxan) 550 mg PO DAILY LIVER 10/15/21 10/19/21 albuterol sulfate 90 mcg/actuation 1 - 2 puff inhalation QIDP PRN 10/16/21 10/16/21 aerosol inhaler Shortness Of Breath carvedilol 6.25 mg tablet 6.25 mg PO BIDWMEAL High blood 10/16/21 10/16/21 pressure fluticasone propionate 50 1 spray intranasal BID Allergy 10/16/21 10/16/21 mcg/actuation nasal symptoms spray,suspension [id number]-[id number] 1 cap PO TIDWMEAL PANCREATIC 10/16/21 10/16/21 24,000-76,000-120,000 unit INSUFFICIENCY capsule,delayed rel (Creon) sertraline 25 mg tablet 25 mg PO DAILY MOOD 10/16/21 10/16/21 trazodone 100 mg tablet 100 mg PO HS SLEEP 10/16/21 10/16/21 Previous Rx's Medication Instructions Recorded gabapentin 100 mg capsule 100 mg PO TID #90 caps 10/19/21 magnesium oxide 400 mg (241.3 mg 400 mg PO DAILY #30 tabs 10/19/21 magnesium) tablet metronidazole 500 mg tablet 500 mg PO Q8H #15 tabs 10/19/21 potassium chloride 20 mEq 20 meq PO DAILY #30 tabs 10/19/21 tablet,extended release(part/cryst) Allergies Allergy/AdvReac Type Severity Reaction Status Date / Time cinnamon Allergy Severe TONGUE Verified 01/20/20 13:46 SWELL, NAUSEA acetaminophen AdvReac Unknown LIVER ISSUE Verified 01/20/20 13:46 [facility] Medical History (Updated 10/28/21 @ 16:36 by Darci Hernandez MD) Abnormal ECG Alcoholic cirrhosis of liver without ascites Cachexia Cirrhosis Common bile duct dilatation Common bile duct stricture COPD (chronic obstructive pulmonary disease) Electrolyte imbalance Exocrine pancreatic insufficiency History of heart attack History of MA (myocardial infarction) Hyperglycemia Hypertension Leukocytosis Noncomp
[2021-10-28 14:37] LABS: Basophils # 0.1 K/mm3 (0-0.2); Basophils % 1.1 % (0.1-2.0); Eosinophils # 0.1 K/mm3 (0.0-0.4); Eosinophils % 1.3 % (0.1-12.0); Hemoglobin 12.8 g/dL (12.2-16.2); Lymphocytes # 1.7 K/mm3 (0.7-4.5); Lymphocytes % 18.1 % (10-50); Mean Corpuscular HGB Conc 31.2 g/dL (31.8-35.4); Mean Corpuscular Hemoglobin 27.2 pg (27.0-31.2); Mean Corpuscular Volume 87.1 fl (81-99); Mean Platelet Volume 7.8 fl (7.4-10.4); Monocytes # 0.4 K/mm3 (0.1-1.0); Monocytes % 4.3 % (1.7-9.3); Neutrophils # 7.1 K/mm3 (1.8-7.8); Platelet Count 354 K/mm3 (142-424); Red Blood Count 4.71 M/mm3 (4.20-5.40); Red Cell Distribution Width 16.2 % (11.5-17.5); White Blood Count 9.5 K/mm3 (4.8-10.8)
--- NOTE | 2021-10-28 14:40 | PC.NURSE ---
HARDIK LEO at
[2021-10-28 14:46] LABS: Chloride 94 mmol/L (98-107); Potassium 4.5 mmoL/L (3.5-5.1); Sodium 130 mmol/L (136-145)
[2021-10-28 14:49] LABS: Alanine Aminotransferase 25 U/L (12-78); Albumin Level 3.9 g/dl (3.5-5.0); Albumin/Globulin Ratio 1.3 (1.1-1.8); Alkaline Phosphatase 249 U/L (38-126); Anion Gap 8.5 mEq/L (5-15); Aspartate Amino Transferase 36 U/L (14-36); Blood Urea Nitrogen 13 mg/dl (7-17); Carbon Dioxide 32 mmol/L (22.0-30.0); Creatinine Clearance Estimated 27 mL/min (50-200); Estimated Glomerular Filt Rate 226 ml/min (>60); GFR (African American) 274 ML/MIN (>60); Globulin 2.9 g/dL (1.3-3.2); Total Protein,Serum 6.8 g/dl (6.3-8.2)
[2021-10-28 14:50] LABS: Calcium 8.5 mg/dl (8.4-10.2)
[2021-10-28 14:55] LABS: Bilirubin,Total < 0.1 mg/dl (0.2-1.3)
[2021-10-28 14:57] LABS: Glucose 517 mg/dl (74-100); Lipase < 10 U/L (23-300)
--- NOTE | 2021-10-28 15:03 | PC.NURSE ---
pt requesting pain medication, notified HARDIK LEO
[2021-10-28 15:08] LABS: Troponin I < 0.01 ng/ml (0.00-0.034)
--- NOTE | 2021-10-28 15:43 | CT_ITS ---
FINAL REPORT TECHNIQUE: After the administration of intravenous contrast, axial images were obtained through the abdomen and pelvis by computed tomography. This study was performed with technique to keep radiation doses as low as reasonably achievable, (ALARA). Individualized dose reduction techniques using automated exposure control or adjustment of the MA and/or KV according to the patient's size were employed. CLINICAL HISTORY: Acute abdominal pain, pancreatitis COMPARISON: 10/15/2021 FINDINGS: Abdomen: The lung bases are clear. The liver is normal in size and attenuation. There is mild gallbladder wall thickening. The spleen is unremarkable. The adrenals are normal. There are widespread pancreatic calcifications consistent with chronic pancreatitis. The kidneys enhance appropriately. There are less than 1 cm cysts in the kidneys bilaterally. The aorta is normal in caliber. There is a small amount of ascites present. There are postoperative changes noted in a bowel loop in the anterior right upper quadrant. A moderate to large amount of stool is present. There is wall thickening of the rectosigmoid junction, splenic flexure and descending colon which may represent colitis. Pelvis: The appendix is not identified. The urinary bladder is unremarkable. There is no free fluid or adenopathy. IMPRESSION: Findings consistent with stable, chronic pancreatitis. Small, nonspecific ascites which may be reactive. Persistent wall thickening throughout multiple portions of the colon worrisome for colitis. Large amount of stool. Reviewed, Interpreted and Dictated by Isacc Puente III, MD Transcribed by Betty Delgado Authenticated and [facility]
--- NOTE | 2021-10-28 15:47 | PC.NURSE ---
RADIOLOGY AT BEDSIDE TO TAKE PT FOR CT
--- NOTE | 2021-10-28 15:49 | PC.NURSE ---
pt to CT at this time via stretcher. per ER MD pt will remain in ER until CT results are back.
--- NOTE | 2021-10-28 15:51 | PC.NURSE ---
notified Care management of admission, spoke with gianna
--- NOTE | 2021-10-28 16:01 | PC.NURSE ---
Maricarmen RIVERS let staff know of bed status #208
--- NOTE | 2021-10-28 16:20 | PC.NURSE ---
fsbs 312, notified ER
[2021-10-28 16:23] LABS: POC Glucose,Bedside 312 (70-110)
--- NOTE | 2021-10-28 16:41 | PC.NURSE ---
Mary RIVERS getting Nasal Swab
--- NOTE | 2021-10-28 16:45 | PC.NURSE ---
pt given water per her request(okayed per ER ) offered supper tray, pt declined states she just wanted some water
[2021-10-28 16:58] LABS: Coronavirus 19, PCR Not Detected (NotDetected); Influenza A, PCR Not Detected (NotDetected); Influenza B, PCR Not Detected (NotDetected)
--- NOTE | 2021-10-28 17:31 | PC.NURSE ---
report called to fernandorn on second floor at this time. Covid swab is still pending, states she will send staff down to transport pt when swab is resulted.
--- NOTE | 2021-10-28 18:00 | PC.NURSE ---
SPOKE WITH WILLIE IN LAB, SHE REPORTED THAT COVID SWAB WAS NEGATIVE.
--- NOTE | 2021-10-28 18:12 | PC.NURSE ---
pt arrived to the floor at this time
[2021-10-28 21:19] LABS: POC Glucose,Bedside 226 (70-110)
[2021-10-29 04:00] VITALS: BP 137/71; PULSE 76; RESP 19; TEMP 37.1; O2SAT 100
[2021-10-29 05:00] VITALS: BMI 13.3
[2021-10-29 06:14] LABS: POC Glucose,Bedside 177 (70-110)
--- NOTE | 2021-10-29 06:43 | PC.NURSE ---
pt has c/o upper abdominal pain and been medicated per mar this shift. she has slept most of the night and had no other complaints. she has used the bsc with 1 person assist. she remains on 2L o2 NC and has tolerated well.
[2021-10-29 06:59] LABS: Anion Gap 7.2 mEq/L (5-15); Blood Urea Nitrogen 12 mg/dl (7-17); Calcium 7.8 mg/dl (8.4-10.2); Carbon Dioxide 29 mmol/L (22.0-30.0); Chloride 105 mmol/L (98-107); Creatinine Clearance Estimated 32 mL/min (50-200); Estimated Glomerular Filt Rate 226 ml/min (>60); GFR (African American) 274 ML/MIN (>60); Glucose 147 mg/dl (74-100); Potassium 4.2 mmoL/L (3.5-5.1); Sodium 137 mmol/L (136-145)
--- NOTE | 2021-10-29 07:55 | P.CONPHA_ITS ---
[facility] VTE Monitoring Patient Demographics Admission date: 10/28/21 Report Date: 10/29/21 Time: 07:55 Patient Allergies cinnamon Allergy (Severe, Verified 01/20/20 13:46) TONGUE SWELL, NAUSEA acetaminophen Adverse Reaction (Unknown, Verified 01/20/20 13:46) LIVER ISSUE Height: 1.6 m Weight: 34.161 kg Current Active Problems (Updated 10/28/21 @ 16:36 by Darci Hernandez MD) Abdominal pain (Acute) Acute hyperglycemia (Acute) Vomiting (Acute) Chronic pancreatitis (Acute) Colitis (Acute) VTE Risk Labs: VTE Related Lab Results Hgb 12.8 g/dL (12.2-16.2) 10/28/21 14:30 Hct 41.0 % (37.0-47.0) 10/28/21 14:30 Plt Count 354 K/mm3 (142-424) 10/28/21 14:30 BUN 12 mg/dl (7-17) 10/29/21 06:00 Creatinine 0.30 mg/dl (0.52-1.04) L 10/29/21 06:00 Estimated Creat Clear 32 mL/min (50-200) 10/29/21 06:00 VTE Score: 4 VTE Risk Level: Low Risk Prophylaxis VTE Prophylaxis Ordered?: Yes Types of VTE Prophylaxis: TEDS Knee High Location of Applied Device: Bilateral Lower Extremeties
[2021-10-29 08:00] VITALS: BP 128/75; PULSE 82; RESP 16; TEMP 37.2; O2SAT 100; O2SAT 97
--- NOTE | 2021-10-29 09:15 | HMH.PHAINT1 ---
Pharmacy Intervention Comments: MEDICATION RECONCILIATION COMPLETED ON PATIENT USING EXTERNAL FILL HISTORY FROM PHARMACY AND DISCHARGE SUMMARY FROM PREVIOUS ADMISSION. -ROMELIA STEWART, SHALOMD
--- NOTE | 2021-10-29 09:32 | EXP.HP ---
History of Present Illness *Admission Date: 10/28/21 *Reason for visit:: abdominal pain *History of present illness: Ms. Wilhelm is a 61yo female with a history of chronic pancreatitis, hypertension, COPD, insulin-dependent diabetes, pancreatic pseudocyst, and alcoholic cirrhosis of the liver without ascites. She was seen in the emergency department on 10/15/2021 after having symptoms of pain under her rib cage and vomiting for 2 [address] of her abdomen and pelvis was done and it showed colitis. She was admitted to the hospital and stayed until 10/19/2021. She states her symptoms never resolved at home and have now worsened. She complains of vomiting multiple times a day along with loose stools. She denies any fever. She has not been to see a small equipment operator since her last discharge. [facility] Medical History (Updated 10/29/21 @ 09:40 by YAN Garvey) Abnormal ECG Alcoholic cirrhosis of liver without ascites Cachexia Cirrhosis Colitis Common bile duct dilatation Common bile duct stricture COPD (chronic obstructive pulmonary disease) Electrolyte imbalance Exocrine pancreatic insufficiency History of heart attack History of UT (myocardial infarction) Hyperglycemia Hypertension IDDM (insulin dependent diabetes mellitus) Leukocytosis Noncompliance w/medication treatment due to intermit use of medication Pancreatic pseudocyst Pancreatitis Superior mesenteric vein thrombosis Tobacco dependence syndrome Surgical History (Updated 10/29/21 @ 09:40 by YAN Garvey) History of hernia repair History of hysterectomy for benign disease Hx of breast augmentation Hx of exploratory laparotomy Status post endoscopic retrograde cholangiopancreatography Tubal ligation status Family History (Updated 10/29/21 @ 09:41 by YAN Garvey) Diabetes Hyperlipidemia COPD (chronic obstructive pulmonary disease) Cancer Hypertension Social History Smoking Status: Former smoker pack-years: 40 second hand exposure: Yes alcohol intake: never substance use type: denies use current occupational status: unemployed Travel in the last 8 weeks: None household members: significant other housing: house current occupational exposures/hazards: No caffeine: Yes Review of Systems Constitutional Constitutional: Reports fatigue, Denies fever(s), Denies headache(s) and Reports weakness Eyes Eyes: Denies blurry vision and Denies diplopia ENT Ears, Nose, Mouth, and Throat: Denies headache(s), Reports nasal congestion, Denies sore throat and Reports vertigo *Cardiovascular Cardiovascular: Reports chest pain and Denies dyspnea *Respiratory Respiratory: Denies cough and Denies dyspnea *Gastrointestinal Gastrointestinal: Reports abdominal pain, Reports diarrhea, Reports nausea and Reports vomiting *Genitourinary Genitourinary: Denies difficulty voiding and Denies dysuria *Musculoskeletal Musculoskeletal: Denies arthralgias *Neurologic Neurologic: Denies headache(s), Reports vertigo and Reports weakness Endocrine Endocrine: Reports fatigue Meds Home Medications and Allergies Home Medications Medication Instructions Recorded Confirmed Type ferrous sulfate 325 mg (65 mg 325 mg PO DAILY Supplement 10/15/21 10/28/21 History iron) tablet (FeroSul) fluticasone fur. 100 mcg-umeclid 1 inh inhalation DAILY COPD 10/15/21 10/28/21 History 62.5 mcg-vilant 25 mcg inhalat.powder (Trelegy Ellipta) insulin glargine 100 unit/mL 13 unit SQ PM Diabetes 10/15/21 10/28/21 History subcutaneous cartridge rifaximin 550 mg tablet (Xifaxan) 550 mg PO DAILY LIVER 10/15/21 10/28/21 History carvedilol 6.25 mg tablet 6.25 mg PO BIDWMEAL Hypertension 10/16/21 10/28/21 History [id number]-ccptopj 1 cap PO TIDWMEAL PANCREATIC 10/16/21 10/28/21 History 24,000-76,000-120,000 unit INSUFFICIENCY capsule,delayed rel (Creon) sertraline 25 mg tablet 25 mg PO DAILY MOOD 09/21
[2021-10-29 10:01] VITALS: BMI 13.2
[2021-10-29 12:20] LABS: POC Glucose,Bedside 164 (70-110)
--- NOTE | 2021-10-29 15:14 | PC.NURSE ---
rounded on patient. no questions or concerns noted. about to take a bath. encouraged her to ring out as needed
[2021-10-29 15:48] LABS: Adenovirus F 40/41, stool Not Detected (NotDetected); Astrovirus Not Detected (NotDetected); Campylobacter Not Detected (NotDetected); Clostridium Difficile A/B, PCR Not Detected (NotDetected); Cryptosporidium Not Detected (NotDetected); Cyclospora Cayetanesis Not Detected (NotDetected); Entamoeba histolytica Not Detected (NotDetected); Enteroaggregative E coli Not Detected (NotDetected); Enteropathogenic E coli Not Detected (NotDetected); Enterotoxigenic E coli Not Detected (NotDetected); Giardia lamblia Not Detected (NotDetected); Norovirus Not Detected (NotDetected); Plesimonas Shigalloides, PCR Not Detected (NotDetected); Rotavirus A Not Detected (NotDetected); Salmonella, PCR Not Detected (NotDetected); Sapovirus Not Detected (NotDetected); Shiga-like toxin E coli Not Detected (NotDetected); Shigella Enterovasive E coli Not Detected (NotDetected); Vibrio Cholerae Not Detected (NotDetected); Vibrio, PCR Not Detected (NotDetected); Yersinia Entercolitica, PCR Not Detected (NotDetected)
[2021-10-29 16:00] VITALS: BP 148/84; PULSE 73; RESP 18; TEMP 37.1; O2SAT 93
[2021-10-29 16:48] LABS: POC Glucose,Bedside 165 (70-110)
--- NOTE | 2021-10-29 16:48 | PC.NURSE ---
AOX4, HAS REQUIRED 2 LNC FOR O2 SUPPORT THIS SHIFT. HAS BEEN MEDICATED X2 FOR ABD PAIN WITH PRN MORPHINE WITH GOOD EFFECTIVENESS NOTED. C/O N/V THIS AM PRN ZOFRAN GIVEN AND PT STATED SYMPTOMS WERE NO ALLEVIATED. ORDER FOR PRN ZOFRAN OBTAINED FROM . WHEN THIS RN WENT TO ASK PT IF SHE WANTED PROMETHAZINE PT WAS NOTED TO BE RESTING COMFORTABLY. PT HAS TOLERATED DIET WELL.
--- NOTE | 2021-10-29 16:51 | PC.NURSE ---
pt voided 50 ml out 1400
--- NOTE | 2021-10-29 16:56 | PC.NURSE ---
pt voided 100 ml out at 1600
--- NOTE | 2021-10-29 17:26 | PC.NURSE ---
Courtesy Tech rounds: assisted pt with bed bath
[2021-10-29 20:00] VITALS: BP 106/63; PULSE 81; RESP 16; TEMP 36.6; O2SAT 95
[2021-10-29 20:16] LABS: POC Glucose,Bedside 298 (70-110)
[2021-10-29 23:55] VITALS: O2SAT 95
[2021-10-30 03:56] VITALS: BP 151/86; PULSE 72; RESP 16; TEMP 36.4; O2SAT 100
--- NOTE | 2021-10-30 04:45 | PC.NURSE ---
NO ACUTE CHANGES SINCE PREVIOUS ASSESSMENT. PT HAS SLEPT INTERMITTENTLY THIS SHIFT. LUNG SOUNDS ARE DIMINISHED BILATERALLY. REMAINS ON 2L NASAL CANNULA. PT MEDICATED PER APR FOR PAIN. PT DID C/O NAUSEA ONCE THIS SHIFT AND WAS MEDICATED PER MAR WITH ADEQUATE RELIEF. PT USING BEDSIDE COMMODE INDEPENDENTLY. VSS.
[2021-10-30 05:00] VITALS: BMI 13.1
[2021-10-30 05:46] LABS: POC Glucose,Bedside 232 (70-110)
[2021-10-30 08:00] VITALS: BP 106/56; PULSE 72; RESP 16; TEMP 36.9; O2SAT 95; O2SAT 97
--- NOTE | 2021-10-30 09:52 | PC.NURSE ---
Pt sitting up in bed. Requested more water. Refilled water pitcher. Call light within reach
--- NOTE | 2021-10-30 10:29 | EXP.PN ---
Subjective *Date: 10/30/21 *Time: 10:29 Interval history: States she was able to sleep some during the night. Pain is little better but taking morphine regularly. She has had some nausea but no vomiting. She was able to tolerate solids at breakfast this morning. No further stools during the night. Exam Data for Last 24 hours Vital signs and Labs for Last 24 Hours: Temp Pulse Resp BP Pulse Ox 98.4 F 72 16 106/56 L 97 10/30/21 08:00 10/30/21 08:00 10/30/21 08:00 10/30/21 08:00 10/30/21 08:00 Laboratory Results - last 24 hr 10/28/21 15:35: Stl Aeromonas (PCR) Not detected, Stl C. cayetanensis PCR Not detected, Stool Rotavirus (PCR) Not detected, Stl Adenov F 40/41 PCR Not detected, Stool Astrovirus (PCR) Not detected, Stool Campylobacter PCR Not detected, Stl C.difficile Tox PCR Not detected, Stool Cryptosporidium PCR Not detected, Stl E.coli Shiga Tox PCR Not detected, Stool E coli O157 PCR Not detected, Stl Enterotoxigenic E PCR Not detected, Stool EPEC (PCR) Not detected, Stool EAEC (PCR) Not detected, Stl E. histolytica PCR Not detected, Stool Giardia Lamblia PCR Not detected, Stool Salmonella PCR Not detected, Stool Sapovirus (PCR) Not detected, Stl P. shigelloides PCR Not detected, Stl Shigella/EIEC PCR Not detected, St Y.enterocolitica PCR Not detected, Stool Vibrio (PCR) Not detected, Stl Vibrio cholerae PCR Not detected, Stl Norovirus GI/GII PCR Not detected 10/29/21 12:09: POC Glucose 164 H 10/29/21 16:39: POC Glucose 165 H 10/29/21 20:09: POC Glucose 298 H 10/30/21 05:40: POC Glucose 232 H I & O for Last 24 hours: Intake & Output 10/27/21 10/28/21 10/29/21 10/30/21 11:59 11:59 11:59 11:59 Intake Total 3100 / 3100 1915 / 1915 Output Total 700 / 700 1050 / 1050 Balance 2400 / 2400 865 / 865 Weight 74 lb 15.315 oz 74 lb 6 oz Constitutional Comments: Lungs with generally diminished breath sounds. Marked epigastric and left upper quadrant tenderness. Abdomen less distended. Bowel sounds present. Extremities no edema. Assessment and Plan *Assessment and plan (1) Chronic pancreatitis: Status: Acute Category: Medical Code(s): K86.1 - Other chronic pancreatitis (2) Colitis: Status: Acute Category: Medical Code(s): K52.9 - Noninfective gastroenteritis and colitis, unspecified (3) Acute hyperglycemia: Status: Acute Category: Medical Code(s): R73.9 - Hyperglycemia, unspecified (4) Vomiting: Status: Acute Category: Medical Code(s): R11.10 - Vomiting, unspecified (5) Exocrine pancreatic insufficiency: Status: Acute Category: Medical Code(s): K86.81 - Exocrine pancreatic insufficiency (6) Alcoholic cirrhosis of liver without ascites: Status: Acute Category: Medical Code(s): K70.30 - Alcoholic cirrhosis of liver without ascites (7) Pancreatic pseudocyst: Status: Inactive Category: Medical Code(s): K86.3 - Pseudocyst of pancreas (8) Cachexia: Status: Acute Category: Medical Code(s): R64 - Cachexia (9) IDDM (insulin dependent diabetes mellitus): Status: Chronic Category: Medical Code(s): E11.9 - Type 2 diabetes mellitus without complications; Z79.4 - buttermaker continuous churn (current) use of insulin (10) Hypertension: Status: Chronic Qualifiers: Hypertension type: essential hypertension Qualified Code(s): I10 - Essential (primary) hypertension Category: Medical Code(s): I10 - Essential (primary) hypertension (11) COPD (chronic obstructive pulmonary disease): Status: Chronic Category: Medical Code(s): J44.9 - Chronic obstructive pulmonary disease, unspecified Assessment and plan all Dx Assessment and Plan All Dx:: In reviewing her CT scan, the findings of mild colitis are not consistent with location and quality of her pain. Her pain is most likely related to her chronic panc
--- NOTE | 2021-10-30 15:35 | PC.NURSE ---
AOX4, ABLE TO MAKE NEEDS KNOWN TO STAFF. PT C/O ABD PAIN X2 THIS SHIFT AND WAS MEDICATED WITH PRN MORPHINE WITH GOOD EFFECTIVENESS. CONTINUES ON 2LNC NO C/O SOB. ONE LARGE/FORMED BM NOTED THIS SHIFT. PT IS ABLE TO USE BSC INDEPENDENTLY. SHE DID C/O NAUSEA THIS MORNING AND WAS MEDICATED WITH PRN PROMETHAZINE WITH GOOD EFFECTIVENESS.
[2021-10-30 16:00] VITALS: BP 141/99; PULSE 80; RESP 18; TEMP 37.1; O2SAT 100
[2021-10-30 19:38] VITALS: BP 172/87; PULSE 82; RESP 16; TEMP 37.4; O2SAT 99
[2021-10-31] VITALS: BP 170/96; PULSE 82; RESP 18; TEMP 37.1; O2SAT 99
[2021-10-31 02:12] LABS: POC Glucose,Bedside 170 (70-110)
[2021-10-31 02:12] LABS: POC Glucose,Bedside 338 (70-110)
[2021-10-31 04:00] VITALS: BP 149/85; PULSE 81; RESP 18; TEMP 37.2; O2SAT 100
[2021-10-31 05:00] VITALS: BMI 13.6
--- NOTE | 2021-10-31 06:02 | PC.NURSE ---
Pt alert and oriented x 4. Pt has c/o of ABD pain multiple times this shift. Medicating per MAR. Also medicated per APR x 1 for nausea. Pt states she had a moderate size BM 10/30/21 on dayshift. ABD is still firm, round. BS active x 4. Pt is voiding per BSC. IV infusing per order. No other needs voiced at this time. Call light in reach.
[2021-10-31 08:00] VITALS: BP 147/85; PULSE 85; RESP 16; RESP 18; TEMP 37.4; O2SAT 97
[2021-10-31 11:50] LABS: POC Glucose,Bedside 333 (70-110)
[2021-10-31 12:00] VITALS: BP 141/78; PULSE 76; RESP 16; TEMP 37.2; O2SAT 100
--- NOTE | 2021-10-31 12:00 | EXP.PN ---
Subjective *Date: 10/31/21 *Time: 12:00 Interval history: Her pain is about the same. She does get relief with IV morphine. She is eating better but still experiences nausea. States she had two moderate formed stools yesterday. Exam Data for Last 24 hours Vital signs and Labs for Last 24 Hours: Temp Pulse Resp BP Pulse Ox FiO2 99.3 F 85 16 147/85 H 97 28 10/31/21 08:00 10/31/21 08:00 10/31/21 08:00 10/31/21 08:00 10/31/21 08:00 10/30/21 18:32 Laboratory Results - last 24 hr 10/30/21 11:32: POC Glucose 338 H* 10/30/21 16:53: POC Glucose 170 H 10/31/21 11:39: POC Glucose 333 H* I & O for Last 24 hours: Intake & Output 10/29/21 10/30/21 10/31/21 11/01/21 11:59 11:59 11:59 11:59 Intake Total 3100 / 3100 1915 / 1915 2402 / 2402 Output Total 700 / 700 1050 / 1350 2250 / 2250 Balance 2400 / 2400 865 / 565 152 / 152 Weight 74 lb 15.315 oz 74 lb 6 oz 77 lb 1 oz Constitutional Comments: She is awake and alert and appears in moderate distress. Chest with coarse breath sounds. Abdomen is mildly distended and diffusely tender across the upper abdomen. Bowel sounds are present. Extremities no edema. Assessment and Plan *Assessment and plan (1) Chronic pancreatitis: Status: Chronic Category: Medical Code(s): K86.1 - Other chronic pancreatitis (2) Chronic pain syndrome: Status: Acute Category: Medical Code(s): G89.4 - Chronic pain syndrome (3) Colitis: Status: Acute Category: Medical Code(s): K52.9 - Noninfective gastroenteritis and colitis, unspecified (4) Acute hyperglycemia: Status: Acute Category: Medical Code(s): R73.9 - Hyperglycemia, unspecified (5) Vomiting: Status: Acute Category: Medical Code(s): R11.10 - Vomiting, unspecified (6) Exocrine pancreatic insufficiency: Status: Acute Category: Medical Code(s): K86.81 - Exocrine pancreatic insufficiency (7) Alcoholic cirrhosis of liver without ascites: Status: Acute Category: Medical Code(s): K70.30 - Alcoholic cirrhosis of liver without ascites (8) Pancreatic pseudocyst: Status: Inactive Category: Medical Code(s): K86.3 - Pseudocyst of pancreas (9) Cachexia: Status: Acute Category: Medical Code(s): R64 - Cachexia (10) IDDM (insulin dependent diabetes mellitus): Status: Chronic Category: Medical Code(s): E11.9 - Type 2 diabetes mellitus without complications; Z79.4 - FPC (current) use of insulin (11) Hypertension: Status: Chronic Qualifiers: Hypertension type: essential hypertension Qualified Code(s): I10 - Essential (primary) hypertension Category: Medical Code(s): I10 - Essential (primary) hypertension (12) COPD (chronic obstructive pulmonary disease): Status: Chronic Category: Medical Code(s): J44.9 - Chronic obstructive pulmonary disease, unspecified Assessment and plan all Dx Assessment and Plan All Dx:: I now believe the finding of colitis on CT is a secondary issue and not contributing to her pain. Her pain quality and location are more consistent with chronic pancreatitis. I discussed this at length with the patient, her ex-, and her daughter in separate conversations. She still needs a GI consultation but the immediate goal is control of her pain. We will begin the with a fentanyl patch and scheduled p.o. morphine with prn IV morphine as backup.
--- NOTE | 2021-10-31 15:36 | PC.NURSE ---
AOX4, PAIN SEEMS TO BE BETTER CONTROLLED PT HAS NOT REQUESTED PTN PAIN MEDICATION. TOLERATING DIET WELL. CONTINUES ON 2LNC FOR O2 SUPPORT.
[2021-10-31 16:00] VITALS: BP 189/99; PULSE 78; RESP 18; TEMP 37.3; O2SAT 100
[2021-10-31 16:53] LABS: POC Glucose,Bedside 350 (70-110)
[2021-10-31 19:38] VITALS: BP 130/85; PULSE 76; RESP 16; TEMP 36.7; O2SAT 99
[2021-10-31 21:09] LABS: POC Glucose,Bedside 361 (70-110)
[2021-11-01] VITALS (7 sets, daily range): BP systolic 128–141; BP diastolic 65–72; PULSE 72–85; RESP 16–20; TEMP 36.6–37.1; O2SAT 93–99; BMI 13.4
--- NOTE | 2021-11-01 04:07 | PC.NURSE ---
No changes since previous assessment. Pt has had better pain control this shift and not asking for prn medications as often since starting new pain regimen. Checking FSBS ACHS. Fingerstick at bedtime was 361. Medicated per APR. Pt has been tolerating diet. Pt remains on 2 L NC. IV infusing per order. Call light in reach. No needs at this time.
[2021-11-01 06:41] LABS: POC Glucose,Bedside 256 (70-110)
[2021-11-01 06:44] LABS: Alanine Aminotransferase 20 U/L (12-78); Albumin Level 3.1 g/dl (3.5-5.0); Albumin/Globulin Ratio 1.1 (1.1-1.8); Alkaline Phosphatase 199 U/L (38-126); Anion Gap 6.9 mEq/L (5-15); Aspartate Amino Transferase 34 U/L (14-36); Blood Urea Nitrogen 9 mg/dl (7-17); Calcium 8.3 mg/dl (8.4-10.2); Carbon Dioxide 30 mmol/L (22.0-30.0); Chloride 101 mmol/L (98-107); Creatinine Clearance Estimated 32 mL/min (50-200); Estimated Glomerular Filt Rate 226 ml/min (>60); GFR (African American) 274 ML/MIN (>60); Globulin 2.8 g/dL (1.3-3.2); Glucose 258 mg/dl (74-100); Potassium 4.9 mmoL/L (3.5-5.1); Sodium 133 mmol/L (136-145); Total Protein,Serum 5.9 g/dl (6.3-8.2)
[2021-11-01 06:46] LABS: Bilirubin,Total < 0.1 mg/dl (0.2-1.3)
--- NOTE | 2021-11-01 08:46 | EXP.PN ---
Subjective *Date: 11/01/21 *Time: 21:14 Interval history: Patient continues to have pain. She states she Cannot tell much difference. Pain is mostly on top of her abdomen. We were unable to find her fentanyl patch..She is able to eat she does have some nausea.Bowels did move twice yesterday Exam Data for Last 24 hours Vital signs and Labs for Last 24 Hours: Temp Pulse Resp BP Pulse Ox FiO2 98.2 F 75 20 129/67 96 28 11/01/21 08:00 11/01/21 08:00 11/01/21 08:00 11/01/21 08:00 11/01/21 08:00 10/31/21 18:55 Laboratory Results - last 24 hr 10/31/21 11:39: POC Glucose 333 H* 10/31/21 16:42: POC Glucose 350 H* 10/31/21 20:59: POC Glucose 361 H* 11/01/21 05:58: Sodium 133 L, Potassium 4.9, Chloride 101, Carbon Dioxide 30, Anion Gap 6.9, BUN 9, Creatinine 0.30 L, Estimated Creat Clear 32, Estimated GFR 226, Est GFR ( Amer) 274, Glucose 258 H, Calcium 8.3 L, Total Bilirubin < 0.1 L, AST 34, ALT 20, Alkaline Phosphatase 199 H, Total Protein 5.9 L, Albumin 3.1 L, Globulin 2.8, Albumin/Globulin Ratio 1.1 11/01/21 06:27: POC Glucose 256 H I & O for Last 24 hours: Intake & Output 10/29/21 10/30/21 10/31/21 11/01/21 11:59 11:59 11:59 11:59 Intake Total 3100 / 3100 1915 / 1915 2402 / 2402 3251 / 3251 Output Total 700 / 700 1050 / 1050 2250 / 2250 1400 / 1400 Balance 2400 / 2400 865 / 865 152 / 152 1851 / 1851 Weight 74 lb 15.315 oz 74 lb 6 oz 77 lb 1 oz 76 lb 2 oz Constitutional Constitutional: no acute distress and cachectic Comments: Sitting on bedside when entering the room. *Routine Respiratory Exam Respiratory: Present rhonchi (Bilateral: Scattered) Comments: Congested cough *Routine Cardiovascular Exam Cardiovascular: Present RRR *Routine Abdominal Exam Abdominal: Present tenderness (Across entire upper abdomen) and distended; Absent normoactive bowel sounds (Hyperactive) *Routine Extremities Exam Extremities: Present full ROM; Absent edema *Routine Neurological Exam Neurological: Present alert and oriented X3 Assessment and Plan *Assessment and plan (1) Chronic pain syndrome: Status: Acute Category: Medical Code(s): G89.4 - Chronic pain syndrome (2) Chronic pancreatitis: Status: Chronic Category: Medical Code(s): K86.1 - Other chronic pancreatitis (3) IDDM (insulin dependent diabetes mellitus): Status: Chronic Category: Medical Code(s): E11.9 - Type 2 diabetes mellitus without complications; Z79.4 - FDC (current) use of insulin (4) Abdominal pain: Status: Acute Category: Medical Code(s): R10.9 - Unspecified abdominal pain (5) Colitis: Status: Acute Category: Medical Code(s): K52.9 - Noninfective gastroenteritis and colitis, unspecified (6) Cachexia: Status: Acute Category: Medical Code(s): R64 - Cachexia (7) Exocrine pancreatic insufficiency: Status: Acute Category: Medical Code(s): K86.81 - Exocrine pancreatic insufficiency (8) Chronic alcoholic pancreatitis: Status: Chronic Category: Medical Code(s): K86.0 - Alcohol-induced chronic pancreatitis (9) Hypertension: Status: Chronic Qualifiers: Hypertension type: essential hypertension Qualified Code(s): I10 - Essential (primary) hypertension Category: Medical Code(s): I10 - Essential (primary) hypertension (10) COPD (chronic obstructive pulmonary disease): Status: Chronic Category: Medical Code(s): J44.9 - Chronic obstructive pulmonary disease, unspecified (11) Tobacco use disorder: Status: Chronic Category: Medical Code(s): F17.200 - Nicotine dependence, unspecified, uncomplicated Plan We will continue with pain management. Assessment and plan all Dx Assessment and Plan All Dx:: Patient seen and examined this morning. She still complains of pain but requires less IV morphine yesterday. She is
--- NOTE | 2021-11-01 11:20 | DIET.NUTRFU ---
Nursing is noting good po intake 75% dinner and 100% at breakfast, wt is at baseline. RD did visit during admit and encouarged high claorie foods secondary to low BMI
[2021-11-01 11:42] LABS: POC Glucose,Bedside 303 (70-110)
--- NOTE | 2021-11-01 12:34 | PC.NURSE ---
patient sitting up in bed eating. has no concerns or questions noted. assisted with cleaning off bedside table. call light within reach. encouraged her to ring out as needed.
--- NOTE | 2021-11-01 12:55 | XR_ITS ---
FINAL REPORT CLINICAL HISTORY: Diffuse abdominal pain COMPARISON: 10/28/2021 FINDINGS: THREE-VIEW ABDOMEN An AP view of the the chest was obtained. The lungs are hyperexpanded consistent with COPD. There is a small left pleural effusion versus pleural thickening. Opacity at the left lung base is favored to represent atelectasis or pneumonia. Heart mediastinum are within normal limits. There is no pneumothorax. Flat and upright views of the abdomen were obtained. There is a nonspecific bowel gas pattern. No abnormally dilated loops of bowel are seen. There is a moderate to large amount of stool present. There is no free air present. No abnormal calcifications are identified. IMPRESSION: Small left pleural effusion versus pleural thickening with left base atelectasis or pneumonia. Constipation without evidence of obstruction. Reviewed, Interpreted and Dictated by Isacc Puente III, MD Transcribed by Betty Delgado Authenticated and [facility]
[2021-11-01 16:45] LABS: POC Glucose,Bedside 183 (70-110)
--- NOTE | 2021-11-01 19:22 | PC.NURSE ---
PT C/O PAIN OF UPPER ABD AT FREQUENT INTERVALS T/O SHIFT RELIEVED BY PRESCRIBED PAIN MEDS. X1 NAUSEA RELIEVED BY PHENERGAN. ALERT X3. O2 2L NC TOLERATING WELL. INDEPENDENT TO BSC. CB AND PERSONAL ITEMS WITHIN REACH, NO CONCERNS AT THIS TIME.
[2021-11-02] VITALS: BP 115/71; PULSE 88; RESP 17; TEMP 36.7; O2SAT 92; O2SAT 95
[2021-11-02 04:00] VITALS: BP 110/70; PULSE 86; RESP 17; TEMP 36.8
[2021-11-02 05:00] VITALS: BMI 13.5
[2021-11-02 05:56] LABS: POC Glucose,Bedside 264 (70-110)
[2021-11-02 05:56] LABS: POC Glucose,Bedside 220 (70-110)
[2021-11-02 06:08] VITALS: O2SAT 95
--- NOTE | 2021-11-02 07:01 | PC.NURSE ---
Pt tolerating 2 L nc well with sats >90%. Pt has c/o nausea 1x and pain 2x t/o shift. Prescribed medication administered per APR. Call light within reach.
[2021-11-02 08:00] VITALS: BP 129/65; PULSE 84; RESP 18; TEMP 37.1; O2SAT 95
--- NOTE | 2021-11-02 08:55 | EXP.PN ---
Subjective *Date: 11/02/21 *Time: 21:24 Interval history: patient states she probably is doing a little bit better today. She has had less pain. The pain awakened her and She received 1 dose of morphine IV during the night. Her fentanyl patch was off and not replaced after being found in the bed yesterday. She did have a problem with nausea and received some Phenergan. She has been able to eat a little bit more. She is voiding QS. She is not sure if her bowels actually moved yesterday. She did sleep through the night and slept a lot yesterday. 11/01/2021 Acute abdominal series FINDINGS: THREE-VIEW ABDOMEN? An AP view of the the chest was obtained. The lungs are hyperexpanded consistent with COPD.? There is a small left pleural effusion versus pleural thickening.? Opacity at the left lung base is favored to represent atelectasis or pneumonia.? Heart mediastinum are within normal limits.? There is no pneumothorax.? Flat and upright views of the abdomen were obtained.? There is a nonspecific bowel gas pattern.? No abnormally dilated loops of bowel are seen.? There is a moderate to large amount of stool present.? There is no free air present. No abnormal calcifications are identified. IMPRESSION: Small left pleural effusion versus pleural thickening with left base atelectasis or pneumonia.? ? Constipation without evidence of obstruction. Exam Data for Last 24 hours Vital signs and Labs for Last 24 Hours: Temp Pulse Resp BP Pulse Ox FiO2 98.8 F 84 18 129/65 95 28 11/02/21 08:00 11/02/21 08:00 11/02/21 08:00 11/02/21 08:00 11/02/21 08:00 10/31/21 18:55 Laboratory Results - last 24 hr 11/01/21 11:35: POC Glucose 303 H* 11/01/21 16:36: POC Glucose 183 H 11/01/21 21:43: POC Glucose 264 H 11/02/21 05:45: POC Glucose 220 H I & O for Last 24 hours: Intake & Output 10/30/21 10/31/21 11/01/21 11/02/21 11:59 11:59 11:59 11:59 Intake Total 1915 / 1915 2402 / 2402 3251 / 3251 2401 / 2401 Output Total 1050 / 1050 2250 / 2250 1400 / 1400 1200 / 1200 Balance 865 / 865 152 / 152 1851 / 1851 1201 / 1201 Weight 74 lb 6 oz 77 lb 1 oz 76 lb 2 oz 76 lb 6.4 oz Constitutional Constitutional: no acute distress and cachectic *Routine Respiratory Exam Respiratory: Present rhonchi ( scattered posteriorly) *Routine Cardiovascular Exam Cardiovascular: Present RRR *Routine Abdominal Exam Abdominal: Present normoactive bowel sounds, tenderness and distended *Routine Extremities Exam Extremities: Absent edema or calf tenderness *Routine Neurological Exam Neurological: Present alert and oriented X3 Assessment and Plan *Assessment and plan (1) Chronic pancreatitis: Status: Chronic Category: Medical Code(s): K86.1 - Other chronic pancreatitis (2) Chronic pain syndrome: Status: Acute Category: Medical Code(s): G89.4 - Chronic pain syndrome (3) Colitis: Status: Acute Category: Medical Code(s): K52.9 - Noninfective gastroenteritis and colitis, unspecified (4) IDDM (insulin dependent diabetes mellitus): Status: Chronic Category: Medical Code(s): E11.9 - Type 2 diabetes mellitus without complications; Z79.4 - investigation specialist (current) use of insulin (5) Acute hyperglycemia: Status: Acute Category: Medical Code(s): R73.9 - Hyperglycemia, unspecified (6) Vomiting: Status: Acute Category: Medical Code(s): R11.10 - Vomiting, unspecified (7) Cachexia: Status: Acute Category: Medical Code(s): R64 - Cachexia (8) Exocrine pancreatic insufficiency: Status: Acute Category: Medical Code(s): K86.81 - Exocrine pancreatic insufficiency (9) Tobacco dependence syndrome: Status: Acute Category: Medical Code(s): F17.200 - Nicotine dependence, unspecified, uncomplicated (10) Alcoholic cirrhosis of liver without ascites: Status: Acute Category: Medic
--- NOTE | 2021-11-02 10:10 | PC.NURSE ---
PT TAKEN DOWN. ALL PERSONAL ITEMS WITH PT INCLUDING THE 3 HOME MEDS BROUGHT IN, VERIFIED WITH EX .
--- NOTE | 2021-11-02 22:45 | EXP.DC.SUM ---
General Admission date:: 10/28/21 Discharge date: 11/02/21 HPI HPI HPI: Ms. Wilhelm is a 61yo female with a history of chronic pancreatitis, hypertension, COPD, insulin-dependent diabetes, pancreatic pseudocyst, and alcoholic cirrhosis of the liver without ascites. She was seen in the emergency department on 10/15/2021 after having symptoms of pain under her rib cage and vomiting for 2 [address] of her abdomen and pelvis was done and it showed colitis. She was admitted to the hospital and stayed until 10/19/2021. She states her symptoms never resolved at home and have now worsened. She complains of vomiting multiple times a day along with loose stools. She denies any fever. She has not been to see a family therapist since her last discharge. Hospital Course Hospital Course Hospital Course: The patient's abdominal/pelvic CT showed stable chronic pancreatitis, a small amount of nonspecific ascites, and persistent wall thickening throughout multiple portions of the colon worrisome for colitis. There was also a large amount of stool present. She was admitted primarily because of her elevated glucose of greater than 500 and for pain management. Her family was frustrated we do not have GI service available to address her chronic abdominal pain. Her pain seemed to be out of proportion to the findings on her CT scan. The colitis did not appear to be of infectious etiology. It was felt she would benefit from colonoscopy or sigmoidoscopy on an outpatient basis by GI. Her glucose improved. She was able to tolerate a diet. She was receiving IV fluids, although she did not appear to be dehydrated. Her sodium was normal as were her renal functions. She was given morphine for pain. A diarrhea panel was ordered for loose stools and it was negative. Her pain did improve, but she was taking morphine regularly. She continued with nausea but no vomiting. She had no further stools. In reviewing her CT scan, the findings of colitis were not consistent with the location and quality of her pain. It was felt her pain was most likely related to her chronic pancreatitis. She was given laxatives for the fair amount of stool in her colon. It was felt she would require long-term pain management, likely with narcotics, for her pancreatitis and would need to pursue GI consultation as she will likely need an ERCP to determine if she is a candidate for some type of decompression surgery. Her stools became more formed. Dr. Ko discussed the patient's chronic pancreatitis at length with the patient, her ex-, and her daughter in separate conversations. The immediate goal was to control her pain, but she will need GI consultation. She was started on fentanyl patch and scheduled p.o. morphine with PRN IV morphine as backup. She continued with pain and stated she could not tell much of a difference with pain medication. Her fentanyl patch was off and was not replaced after being found in her bed. She had a repeat abdominal series which showed a small left pleural effusion versus pleural thickening with left base atelectasis versus pneumonia and constipation without evidence of obstruction. It was felt the patient was stable to be discharged with a new pain regimen. Dulcolax was added for constipation. She will follow-up with Dr. Larson of gastroenterology as scheduled and she also has an appointment with a pancreas specialist at on 11/16/[address] Mendez. She will keep this appointment as well. Exam Data for Last 24 hours Vital signs and Labs for Last 24 Hours: Temp Pulse Resp BP Pulse Ox FiO2 98.8 F 84 18 129/65 95 28 11/02/21 08:00 11/02/21 08:00 11/02/21 08:00 11/02/21 08:00 11/02/21 08:00 10/31/21 18:55 Laboratory Results - last 24 hr 11/01/21 21:43: POC Glucose 264 H 11/02/21 05:45: POC Glucose 220 H I & O for Last 24 hours: Intake & Output 10/31/21 11/01/21 11/02/21 11/03/21 11:
--- NOTE | 2021-11-03 13:36 | CARE MANAGER ---
Contacted patient related to hospital discharge. Patient states that she feels the same as she did with the pain and breathing problems. She has all her medications and has home O2. She is aware of her follow up appointments and denies any questions or concerns at this time. SILVESTRE Mcginnis
== END 2021-11-02 10:13 | disposition home or self-care (01) ==
LOC: ER 15:51 → 2ND 16:01
PROVIDERS: Admitting Provider Family Medicine; Emergency Provider Emergency Medicine; PCP Family Medicine; Visit Provider Family Medicine
DX: K52.9 Noninfective gastroenteritis and colitis, unspecified (principal); R73.9 Hyperglycemia, unspecified; R11.10 Vomiting, unspecified; K86.81 Exocrine pancreatic insufficiency; K70.30 Alcoholic cirrhosis of liver without ascites; K86.3 Pseudocyst of pancreas; R64 Cachexia; K86.0 Alcohol-induced chronic pancreatitis; E11.9 Type 2 diabetes mellitus without complications; Z79.4 Long term (current) use of insulin; I10 Essential (primary) hypertension; J44.9 Chronic obstructive pulmonary disease, unspecified; G89.4 Chronic pain syndrome; F17.210 Nicotine dependence, cigarettes, uncomplicated; Z68.1 Body mass index [BMI] 19.9 or less, adult; Z79.899 Other long term (current) drug therapy
CPT/HCPCS: G0378; 36415; 74021; 74177; 80048; 80053; 82962; 83690; 84484; 85025; 87506; 93005; 94640; 94761; 99285; C9803; J2405; Q9967; U0003; U0005